=== PATIENT | female | born 1945 | race Caucasian/White ===

== ENCOUNTER 2017-11-18 07:35 | Day surgery (SDC) | payer MEDICARE, OTHER, SELFPAY ==
[2017-11-17 12:39] VITALS: BMI 31.1
[2017-11-18] VITALS (7 sets, daily range): BP systolic 150–174; BP diastolic 73–82; PULSE 61–73; RESP 18; TEMP 36.5–36.7; O2SAT 93–100
== END 2017-11-18 10:12 | disposition home or self-care (01) ==
LOC: OR 07:37
PROVIDERS: PCP Family Medicine; Visit Provider Ophthalmology
DX: H26.9 Unspecified cataract (principal)
CPT/HCPCS: 66984; V2632

== ENCOUNTER → 2017-12-09 12:59 | Outpatient (POV) | payer MEDICARE, OTHER, SELFPAY | PROVIDERS: PCP Family Medicine; Visit Provider Internal Medicine | DX: Z00.00 Encounter for general adult medical examination without abnormal findings (principal) ==

== ENCOUNTER 2017-12-16 07:51 | Day surgery (SDC) | payer MEDICARE, OTHER, SELFPAY ==
[2017-12-12 15:31] VITALS: BMI 31.4
[2017-12-16] VITALS (7 sets, daily range): BP systolic 149–176; BP diastolic 69–86; PULSE 60–73; RESP 17–20; TEMP 36.7–36.9; O2SAT 91–100
== END 2017-12-16 10:38 | disposition home or self-care (01) ==
LOC: OR 07:53
PROVIDERS: PCP Family Medicine; Visit Provider Ophthalmology
DX: H26.9 Unspecified cataract (principal)
CPT/HCPCS: 66984; V2632

== ENCOUNTER → 2018-06-30 14:25 | Outpatient (POV) | payer MEDICARE, OTHER, SELFPAY | PROVIDERS: PCP Family Medicine; Visit Provider Internal Medicine | DX: Z00.00 Encounter for general adult medical examination without abnormal findings (principal) ==

== ENCOUNTER → 2018-08-31 16:08 | Outpatient (CLI) | payer MEDICARE, OTHER, SELFPAY ==
--- NOTE | 2018-08-31 16:16 | MM_ITS ---
MM Dig screening mamm BI w/CAD ORDERING PHYSICIAN : Ari Benavidez MD PATIENT AGE: 73 years GENDER: Female COMPARISON: Bilateral digital screening mammogram lDeceer 2016, July 2016, 2014, June 2014 INDICATION: ITS.REASON: SCREENING No hormones. No new complaints.. Family History: 2 sisters with breast cancer. & One cousin. TECHNIQUE: Standard CC and MLO images were obtained. R2 CAD reviewed. Additional CC nipple profile view bilateral FINDINGS: Lower density breast with minimal residual fibroglandular elements both breasts. , Most evident retroareolar region extending towards upper-outer quadrant. No suspicious mass. No dominant mass. No suspicious calcifications. No significant new findings. Bilateral follow-up in one year adequate. . --------IMPRESSION: Stable bilateral mammogram. No significant new findings. Bilateral follow-up in one year BI-RADS Category: 1 Negative RECOMMENDED FOLLOW-UP: 1YR 1 YEAR FOLLOW-UP (A letter has been sent to the patient regarding results of the study.)
== END ==
PROVIDERS: PCP Family Medicine; Visit Provider Family Medicine
DX: Z12.31 Encounter for screening mammogram for malignant neoplasm of breast (principal)
CPT/HCPCS: 77067

== ENCOUNTER 2018-12-14 11:38 | Inpatient (IN) ==
--- NOTE | 2018-12-14 12:04 | Emergency Department Note ---
ED Disposition Clinical Impression: COPD exacerbation, Hypokalemia Disposition: Admitted as Observation Condition on Discharge: Fair Referrals: Ari Benavidez MD [Primary Care Provider] - - Critical Care Critical Care Time: No Attestation: On 12/14/18, the high probability of a clinically significant, sudden or life threatening deterioration of the following system(s) required my full and direct attention, intervention and personal management. The time I documented below is in addition to time spent performing reported procedures but includes the following listed in this critical care notation. Medical Decision Making - Skip Inquiry Pt receiving controlled substance: No Vital Signs: 12/14/18 11:53 12/14/18 12:01 12/14/18 12:33 Temperature 97.7 F Temperature Source Oral Pulse Rate [Left Radial] 93 H 86 Respiratory Rate 26 H Blood Pressure [Right Arm] 124/87 126/76 Blood Pressure Mean [Right Arm] 99 92 Blood Pressure Source [Right Arm] Automatic Cuff Automatic Cuff Blood Pressure Position [Right Arm] Sitting Sitting 02 Sat by Pulse Oximetry 88 L 96 94 L Oxygen Delivery Method Room Air Nasal Cannula Oxygen Flow Rate (LPM) 2 12/14/18 13:00 12/14/18 14:00 Temperature Temperature Source Pulse Rate [Left Radial] 68 73 Respiratory Rate 20 20 Blood Pressure [Right Arm] 131/64 121/83 Blood Pressure Mean [Right Arm] 86 95 Blood Pressure Source [Right Arm] Automatic Cuff Blood Pressure Position [Right Arm] Sitting 02 Sat by Pulse Oximetry 95 94 L Oxygen Delivery Method Room Air Room Air Oxygen Flow Rate (LPM) - Lab Data Lab Results 12/14/18 11:48: WBC 7.3, RBC 4.73, Hgb 13.2, Hct 41.2, MCV 87.0, MCH 28.0, MCHC 32.1, RDW 13.5, Plt Count 314, MPV 7.4, Neut % (Auto) 78.6, Lymph % (Auto) 13.5, [place] % (Auto) 5.8, Eos % (Auto) 1.4, Baso % (Auto) 0.7, Neut # (Auto) 5.7, Lymph # (Auto) 1.0, [place] # (Auto) 0.4, Eos # (Auto) 0.1, Baso # (Auto) 0.1 12/14/18 11:48: Sodium 142, Potassium 2.8 L*, Chloride 102, Carbon Dioxide 29, Anion Gap 13.8, BUN 12, Creatinine 1.44 H, Estimated Creat Clear 39, Estimated GFR 36 L, Est GFR ( Amer) 43 L, Glucose 130 H, Calcium 8.5, Total Bilirubin 0.4, Direct Bilirubin 0.1, Indirect Bilirubin 0.3, AST 53 H, ALT 40, Alkaline Phosphatase 82, Troponin I < 0.02, Total Protein 7.1, Albumin 3.2 L, Amylase 58, Lipase 65 L 12/14/18 12:19: Specimen Source Right brachial, O2 % 2.5l, ABG pH 7.44, ABG pCO2 39.7, ABG pO2 80.9, ABG HCO3 26.5 H, ABG Total CO2 27.7 H, ABG O2 Saturation 96, ABG Base Excess 2.4 H, Lionel Test Acceptable 12/14/18 12:23: Lactate 1.3 12/14/18 14:00: Urine Color Yellow, Urine Appearance Clear, Urine pH 6.0, Ur Specific [place] >= 1.030, Urine Protein 1+, Urine Glucose (UA) Negative, Urine Ketones Negative, Urine Blood Negative, Urine Nitrate Positive, Urine Bilirubin Negative, Urine Urobilinogen 0.2, Ur Leukocyte Esterase Negative, Urine WBC 5- 10, Ur Squamous Epith Cells 3-5, Urine Bacteria 4+ Result diagrams: 12/14/18 11:48 12/14/18 11:48 Orders (Tests/Meds): ED MEDICATIONS Generic Name Dose Route Start Last Admin Trade Name Freq PRN Reason Stop Dose Admin Sodium Chloride 10 ml 12/14/18 11:59 Saline Flush 10ml Syringe IV 01/13/19 11:58 NEEDED PRN Maintain IV Site Discontinued Medications Generic Name Dose Route Start Last Admin Trade Name Freq PRN Reason Stop Dose Admin Morphine Sulfate 2 mg 12/14/18 13:06 12/14/18 13:24 Morphine 4mg/Ml Syringe IV 12/14/18 13:07 2 mg ONCE ONE Administration Ondansetron HCl 4 mg 12/14/18 13:06 12/14/18 13:24 Zofran 4mg/2ml Vial IV 12/14/18 13:07 4 mg ONCE ONE Administration Ondansetron HCl 4 mg 12/14/18 13:38 12/14/18 14:03 Zofran 4mg/2ml Vial IV 12/14/18 13:39 4 mg ONCE ONE Administration Potassium Chloride 60 meq 12/14/18 12:21 12/14/18 12:30 Klor-Con 20meq Tablet PO 12/14/18 12:22 60 meq ONCE ONE Administration ORDERS Category Date Time Status Diarrhea 23 Panel, PCR Stat Lab 12/14/18 11:59 Ordered Blood Culture Stat Micro 12/14/18 12:23 Received Urine Culture Stat Micro 12/14/18 14:00 Received - Radiology Data #1 Image(s): Chest Image Reviewed: Yes I reviewed the patient's radiology image, Yes I have reviewed radiologist's interpretation Preliminary Findings: Normal/NAD - CT Data CT Scan: Abdomen, Pelvis Time Received: 14:[address] Reviewed: Yes: I have viewed the radiologist's interpretation Findings Narrative: IMPRESSION: 1. Fatty liver with distended gallbladder. 2. Hiatal hernia. High density material present within the distal esophagus and stomach and could be related to oral contrast or ingested bismuth containing product. 3. [id number] amount of stool within the colon with some air-fluid levels which could be seen with diarrhea disease. 4. Diverticulosis. No evidence of diverticulitis Dictated By: Lionel Acuña MD Signed By: <Electronically signed by Lionel Acuña MD in [place]> 12/14/18 [id number] - ECG Data Tracing #1 EKG interpreted by Harley Wheatley MD: Rhythm: sinus Rate: 88 [place]: Left Ectopy: none Conduction: normal ST Segment Changes: none T Wave Changes: none Q Waves: none No evidence of acute ischemia or injury LVH Baseline artifact and wander present, but I consider the EKG adequate for accurate interpretation. - Physician Consults Physician Consulted: Pramod Time: 14:43 Reason -: Admission Comment/Response: Agrees to admit the patient to the hospital. We discussed the patient's clinical information, including history, exam, laboratory and radiology results and ED course. Per hospital procedure, I will write temporary bridge inpatient orders on the patient. Specific orders requested by the admitting physician: D5 half-normal saline with 40 mEq of potassium per liter at 100 cc/h. Recheck chemistry profile in the morning. Continue nebulizer treatments and steroids. No antibiotics. - Reevaluation(s) Time: 14:32 Reevaluation #1: Improved, but states not back to baseline and feels like she needs to be admitted. General Adult HPI - General Chief complaint: Shortness of Breath/Dyspnea Stated complaint: SOA Time Seen by Provider: 12/14/18 12:03 Mode of Arrival: Wheelchair Limitations: No Limitations Description of Symptoms (Recalled from ER Triage Doc. by RN): to ed per pvt car with c/o SOB "always SOB" worse over last 2 days. +cough pt also c/o abd cramping and diarrhea x 2 months + nausea seen by PCP last friday given antibiotics and zofran. denies fever, chills, urinary symptoms. cpta none - History of Present Illness HPI narrative: 1 week history of productive cough, increasing shortness of breath. States she has had a fever. Has chronic thick drainage down the back of her throat. States also has chronic diarrhea. Chronic abdominal pain and chronic vomiting, generally at night after she takes her medicines. However, symptoms have worsened recently and she saw her primary care doctor last week and was started on Flagyl, Cipro, and Zofran. states she was supposed to have a gallb ladder tests, but states he could not get the office to schedule it. Has COPD. Former smoker. He uses oxygen at night. Has an inhaler, but not a nebulizer. Chronically short of breath, but worse now. - Related Data Home Medications Medication Instructions Recorded Confirmed Atorvastatin Calcium [Lipitor 40mg 40 mg PO HS 11/17/17 12/14/18 Tablet] Dicyclomine HCl 20 mg PO DAILY 11/17/17 12/14/18 Mirtazapine [Remeron] 30 mg PO HS 11/17/17 12/14/18 Montelukast Sodium [Montelukast 10 mg PO HS 11/17/17 12/14/18 10mg Tab] Omeprazole Magnesium [Prilosec Otc 20 mg PO DAILY 11/17/17 12/14/18 20mg Tab] Pilocarpine HCl [Salagen] 5 mg PO TID 11/17/17 12/14/18 Umeclidinium Brm/Vilanterol Tr 1 each IH DAILY 11/17/17 12/14/18 [Anoro Ellipta 62.5-25 Mcg INH] Venlafaxine HCl [Venlafaxine HCl 125 mg PO DAILY 11/17/17 12/14/18 ER] diazePAM [Valium] 5 mg PO BID 11/17/17 12/14/18 dilTIAZem HCl [Diltiazem ER] 180 mg PO DAILY 11/17/17 12/14/18 Bisoprolol Fumarate [Zebeta 5mg 5 mg PO DAILY 05/26/18 12/14/18 tablet] hydroCHLOROthiazide [HCTZ 12.5mg 12.5 mg PO DAILY 05/26/18 12/14/18 cap] metroNIDAZOLE [Flagyl 500mg 500 mg PO Q8H 12/14/18 12/14/18 Tablet] Previous Rx's Medication Instructions Recorded Dicyclomine HCl [Bentyl 10mg 10 mg PO Q8HP PRN #21 cap 05/26/18 capsule] Allergies Allergy/AdvReac Type Severity Reaction Status Date / Time butorphanol [From STADOL] Allergy Mild Verified 12/16/17 08:05 naproxen [NAPROXEN] Allergy Mild Verified 12/16/17 08:05 Penicillins [PENICILLINS] Allergy Mild Verified 12/16/17 08:05 [facility] History - Hepatitis A Screen Drug use history?: No High risk sexual behaviors?: No History of sexually transmitted infection?: No Currently employed?: No Childcare worker?: No Do you have indoor plumbing?: Yes Do you have electricity?: Yes Attestation statement:: This patient has been screened for Hepatitis A risk factors. Medical History: Reports:: Arrhythmia, Hyperlipidemia, Hypertension, Lung Disease (copd, USES OXYGEN NIGHTLY) Denies:: Cancer, Diabetes Mellitus Type 1, Diabetes Mellitus Type 2, Internal Pacemaker, MRSA, Seizures Other Surgeries: No: Pacemaker Amputation: No Fractures: No - Social History Smoking Status: Former smoker Alcohol Intake: never Occupational Status: other - Psychiatric History Expresses thoughts of harming self/others: None Suicide Plan Description: No Plan ROS Obtained: Yes All systems reviewed & no additional complaints - Constitutional Constitutional: Reports fever(s) - ENT Ears, Nose, Mouth, and Throat: Reports post nasal drip - Cardiovascular Cardiovascular: Denies chest pain - Respiratory Respiratory: Yes cough, Yes excessive phlegm production - Gastrointestinal Gastrointestingal: Reports: abdominal pain, diarrhea, vomiting Physical Exam - General General appearance: alert Comment: Tachypneic, frequent coughing - Head Head exam: atraumatic, normocephalic - Eye Eye exam: Present: normal appearance, PERRL, EOMI - ENT ENT exam: Present: mucous membranes moist - Neck Neck exam: Present: normal inspection, trachea midline - Chest Chest inspection: Present: normal inspection, symmetric chest wall rise - Respiratory Respiratory exam: Present: wheezes, other (Rhonchi) - Cardiovascular Cardiovascular exam: Present: regular rate, normal rhythm, normal heart sounds - Abdominal Exam Abdominal exam: Present: soft, tenderness. Absent: distention Abdominal tenderness: Present: diffuse - Extremities Exam Extremities exam: Present: normal inspection - Neurological Exam Neurological exam: Present: alert, oriented X3 - Psychiatric Psychiatric exam: Present: anxious - Skin Skin exam: Present: warm, dry
[2018-12-14 12:09] LABS: Basophils # 0.1 K/mm3 (0-0.2); Basophils % 0.7 % (0.1-2.0); Eosinophils # 0.1 K/mm3 (0.0-0.4); Eosinophils % 1.4 % (0.1-12.0); Hematocrit 41.2 % (37.0-47.0); Hemoglobin 13.2 g/dL (12.2-16.2); Lymphocytes % 13.5 % (10-50); Mean Corpuscular HGB Conc 32.1 g/dL (31.8-35.4); Mean Platelet Volume 7.4 fl (7.4-10.4); Monocytes # 0.4 K/mm3 (0.1-1.0); Monocytes % 5.8 % (1.7-9.3); Neutrophils # 5.7 K/mm3 (1.8-7.8); Neutrophils % 78.6 % (37.0-80.0); Platelet Count 314 K/mm3 (142-424); Red Blood Count 4.73 M/mm3 (4.20-5.40); Red Cell Distribution Width 13.5 % (11.5-17.5); White Blood Count 7.3 K/mm3 (4.8-10.8)
[2018-12-14 12:20] LABS: Alanine Aminotransferase 40 U/L (12-78); Albumin Level 3.2 gm/dL (3.4-5.0); Alkaline Phosphatase 82 U/L (46-116); Amylase 58 U/L (25-115); Anion Gap 13.8 mEq/L (5-15); Aspartate Amino Transferase 53 U/L (15-37); Bilirubin,Direct 0.1 mg/dL (0.0-0.2); Bilirubin,Indirect 0.3 mg/dL (0.0-0.9); Bilirubin,Total 0.4 mg/dL (0.2-1.0); Blood Urea Nitrogen 12 mg/dL (7-18); Calcium 8.5 mg/dL (8.5-10.1); Carbon Dioxide 29 mmol/L (21.0-32.0); Chloride 102 mmol/L (98-107); Glucose 130 mg/dL (74-106); Lipase 65 u/L (73-393); Sodium 142 mmol/L (136-145); Total Protein,Serum 7.1 gm/dL (6.4-8.2)
[2018-12-14 12:21] LABS: Potassium 2.8 mmoL/L (3.5-5.1)
[2018-12-14 13:08] LABS: ABG Base Excess 2.4 mmol/L (-2.4-2.3); ABG HCO3 26.5 mmhg (22.0-26.0); ABG Oxygen Saturation 96 % (90-100); ABG PCO2 39.7 mmhg (35.0-45.0); ABG PH 7.44 mmol/L (7.35-7.45); ABG PO2 80.9 mmhg (80-100); ABG TCO2 27.7 mmhg (23-27)
[2018-12-14 13:09] LABS: Allen's Test Acceptable; Oxygen 2.5L %
[2018-12-14 14:05] LABS: Microscopic, Urine URINE MICROSCOPIC (MICROSCOPIC)
[2018-12-14 14:12] LABS: Appearance,Urine CLEAR (Clear); Blood, Urine Negative (Negative); Color,Urine YELLOW (Yellow); Glucose,Urine (UA) Negative (Negative); Ketones,Urine Negative (Negative); Leukocyte Esterase,Urine Negative (Negative); Protein,Urine 1+ (Negative); Specific Gravity, Urine >= 1.030 (1.005-1.030); Urobilinogen,Urine 0.2 EU/dl (0.2)
[2018-12-14 14:19] LABS: Bacteria,Urine 4+ /lpf; Bilirubin,Urine Negative (Negative)
--- NOTE | 2018-12-14 16:05 | History & Physical Report ---
*Admission Date: 12/14/18 *Chief complaint: mild COPD exacerbation and hypokalemia *History of present illness: 73 year old female presents to the Emergency Department via private vehicle with increasing shortness of breath, cough, and N/V/D. Respiratory symptoms are chronic in nature but have progressively gotten worse over the last two weeks. She reportedly wears 2L NC at bedtime, takes anoro inhaler daily, and has nebulizer at home but not recently used. PMH significant for asthma, COPD, PNA and tobacco use, smoked 2 PPD X15-20 years, quit 20 years ago. Nausea and diarrhea has been going on for the past two months, vomiting started in the ER today, she was seen in the office one week ago and started on flagyl, cipro, ondansetron for these issues and is awaiting further testing on gallbladder. Negative for blood in emesis or stool. Does not follow any particular diet for previous diagnosis of diverticulosis. PMH also significant for IBS. H History Medical History: Reports:: Arrhythmia, Chronic Obstructive Pulmonary Disease (COPD), Hiatal Hernia, Home Oxygen, Hyperlipidemia, Hypertension, Lung Disease (copd, USES OXYGEN NIGHTLY) Denies:: Cancer, Diabetes Mellitus Type 1, Diabetes Mellitus Type 2, Internal Pacemaker, MRSA, Seizures *Have you ever received a pneumonia vaccine?: No (2016) *Have you received a flu vaccine this season?: No (2016) Comment:: PVC/PACs Other Surgeries: Yes: Appendectomy, Hysterectomy-Partial. No: Pacemaker Amputation: No Fractures: No Comment: cardiac catheterization without stenting, hemorrhoidectomy, fatty tumor removed from left groin, and benign skin lesion removed from face - *Social History Smoking Status: Former smoker # Packs/Day (cigarettes): 2 #Yrs smoked (if former smoker): 20 Smoking End Date: 20 years ago Alcohol Intake: never *Occupational Status:: other *Travel in the last 8 weeks: None - Psychiatric History Expresses thoughts of harming self/others: None Suicide Plan Description: No Plan Family Hx:: No significant family history Review of Systems - Constitutional Reports fever(s), Reports lack of energy, Reports malaise Comments: subjective fevers - *Cardiovascular Denies chest pain, Denies irregular heart rhythm, Denies leg swelling, Denies shortness of breath when lying down, Denies fast heart rate - *Respiratory Reports chest congestion, Reports cough, Reports shortness of breath, Denies coughing up blood - *Gastrointestinal Reports cramping, Reports loose stools, Reports nausea, Reports vomiting, Denies abdominal pain - *Musculoskeletal Denies muscle cramps Meds Home Medications Medication Instructions Recorded Confirmed Type Atorvastatin Calcium [Lipitor 40mg 40 mg PO HS 11/17/17 12/14/18 History Tablet] Mirtazapine [Remeron] 40 mg PO HS 11/17/17 12/14/18 History Montelukast Sodium [Montelukast 10 mg PO HS 11/17/17 12/14/18 History 10mg Tab] Pilocarpine HCl [Salagen] 5 mg PO TID 11/17/17 12/14/18 History RX: Dicyclomine HCl 20 mg PO TID 11/17/17 12/14/18 History Umeclidinium Brm/Vilanterol Tr 1 each IH DAILY 11/17/17 12/14/18 History [Anoro Ellipta 62.5-25 Mcg INH] diazePAM [Valium] 5 mg PO BID 11/17/17 12/14/18 History dilTIAZem HCl [Diltiazem ER] 180 mg PO DAILY 11/17/17 12/14/18 History Dicyclomine HCl [Bentyl 10mg 10 mg PO Q8HP PRN #21 cap 05/26/18 12/14/18 Rx capsule] RX: Bisoprolol Fumarate [Zebeta 5 mg PO DAILY 05/26/18 12/14/18 History 5mg tablet] hydroCHLOROthiazide [HCTZ 12.5mg 12.5 mg PO DAILY 05/26/18 12/14/18 History cap] Ondansetron HCl [Ondansetron 4mg 4 mg PO Q8HP PRN 12/14/18 12/14/18 History Tablet] RX: Ciprofloxacin HCl [Cipro 500mg 500 mg PO Q12H 12/14/18 12/14/18 History Tab] RX: Omeprazole [Omeprazole 40mg 40 mg PO DAILY 12/14/18 12/14/18 History Capsule] RX: Venlafaxine HCl [Venlafaxine 225 mg PO DAILY 12/14/18 12/14/18 History HCl ER] metroNIDAZOLE [Flagyl 500mg 500 mg PO Q8H 12/14/18 12/14/18 History Tablet] Allergies Allergy/AdvReac Type Severity Reaction Status Date / Time butorphanol [From STADOL] Allergy Mild Verified 12/16/17 08:05 naproxen [NAPROXEN] Allergy Mild Verified 12/16/17 08:05 Penicillins [PENICILLINS] Allergy Mild Verified 12/16/17 08:05 Exam Vital signs and Labs for Last 24 Hours: Temp Pulse Resp BP Pulse Ox 97.7 F 77 20 121/83 94 L 12/14/18 11:53 12/14/18 14:55 12/14/18 14:00 12/14/18 14:00 12/14/18 14:00 Laboratory Results - last 24 hr 12/14/18 11:48: WBC 7.3, RBC 4.73, Hgb 13.2, Hct 41.2, MCV 87.0, MCH 28.0, MCHC 32.1, RDW 13.5, Plt Count 314, MPV 7.4, Neut % (Auto) 78.6, Lymph % (Auto) 13.5, [place] % (Auto) 5.8, Eos % (Auto) 1.4, Baso % (Auto) 0.7, Neut # (Auto) 5.7, Lymph # (Auto) 1.0, [place] # (Auto) 0.4, Eos # (Auto) 0.1, Baso # (Auto) 0.1 12/14/18 11:48: Sodium 142, Potassium 2.8 L*, Chloride 102, Carbon Dioxide 29, Anion Gap 13.8, BUN 12, Creatinine 1.44 H, Estimated Creat Clear 39, Estimated GFR 36 L, Est GFR ( Amer) 43 L, Glucose 130 H, Calcium 8.5, Total Bilirubin 0.4, Direct Bilirubin 0.1, Indirect Bilirubin 0.3, AST 53 H, ALT 40, Alkaline Phosphatase 82, Troponin I < 0.02, Total Protein 7.1, Albumin 3.2 L, Amylase 58, Lipase 65 L 12/14/18 12:19: Specimen Source Right brachial, O2 % 2.5l, ABG pH 7.44, ABG pCO2 39.7, ABG pO2 80.9, ABG HCO3 26.5 H, ABG Total CO2 27.7 H, ABG O2 Saturation 96, ABG Base Excess 2.4 H, Lionel Test Acceptable 12/14/18 12:23: Lactate 1.3 12/14/18 14:00: Urine Color Yellow, Urine Appearance Clear, Urine pH 6.0, Ur Specific [place] >= 1.030, Urine Protein 1+, Urine Glucose (UA) Negative, Urine Ketones Negative, Urine Blood Negative, Urine Nitrate Positive, Urine Bilirubin Negative, Urine Urobilinogen 0.2, Ur Leukocyte Esterase Negative, Urine WBC 5- 10, Ur Squamous Epith Cells 3-5, Urine Bacteria 4+ I & O for Last 24 hours: Intake & Output 12/11/18 12/12/18 12/13/18 12/14/18 23:59 23:59 23:59 23:59 Weight 153 lb - Constitutional no acute distress, average body habitus, cooperative - *Routine HEENT Exam Head: Present: normocephalic, atraumatic ENT: Present: mucous membranes dry - *Routine Respiratory Exam Present: accessory muscle use, CTA bilaterally - *Routine Cardiovascular Exam Present: RRR - *Routine Abdominal Exam Present: soft, normoactive bowel sounds, tenderness. Absent: distended Comments: lower lower abd tenderness with palpation - *Routine Extremities Exam Present: normal capillary refill. Absent: cyanosis, edema - *Routine Skin Exam Present: intact. Absent: pallor - *Routine Neurological Exam Present: alert, oriented X3 - Routine Psychiatric Exam Present: normal affect Assessment and Plan (1) COPD exacerbation Current visit: Yes Status: Acute Category: Medical Code(s): J44.1 - Chronic obstructive pulmonary disease with (acute) exacerbation (2) Hypokalemia Current visit: Yes Status: Acute Category: Medical Code(s): E87.6 - Hypokalemia (3) Diverticulosis Current visit: No Status: Acute Category: Medical Code(s): K57.90 - Diverticulosis of intestine, part unspecified, without perforation or abscess without bleeding - Assessment and plan all Dx Assessment and Plan for all problems:: Patient to be admitted overnight to second floor medical surgical unit. Will administer IVFs containing potassium for correction hypokalemia and redraw basic metabolic panel tomorrow morning. May use breathing treatments as needed and will schedule steroids. Zofran as needed for N/V as well.
--- NOTE | 2018-12-14 16:15 | Pharmacy Consult Notes ---
[facility] Pharmacy VTE Monitoring - Patient Demographics Admission date: 12/14/18 Report Date: 12/14/18 Time: 16:15 Allergies/Adverse Reactions: Patient Allergies butorphanol [From STADOL] Allergy (Mild, Verified 12/16/17 08:05) naproxen [NAPROXEN] Allergy (Mild, Verified 12/16/17 08:05) Penicillins [PENICILLINS] Allergy (Mild, Verified 12/16/17 08:05) Height: 1.57 m Weight: 69.4 kg Patient Problems: Current Active Problems COPD exacerbation (Acute) Hypokalemia (Acute) - VTE Risk Labs: VTE Related Lab Results Hgb 13.2 g/dL (12.2-16.2) 12/14/18 11:48 Hct 41.2 % (37.0-47.0) 12/14/18 11:48 Plt Count 314 K/mm3 (142-424) 12/14/18 11:48 BUN 12 mg/dL (7-18) 12/14/18 11:48 Creatinine 1.44 mg/dL (0.55-1.02) H 12/14/18 11:48 Estimated Creat Clear 39 mL/min (50-200) 12/14/18 11:48 - Prophylaxis VTE Prophylaxis Ordered?: Yes Types of VTE Prophylaxis: TEDS Knee High Location of Applied Device: Bilateral Lower Extremeties
--- NOTE | 2018-12-15 06:58 | Progress Note ---
Internal Medicine - PN: Subj *Date: 12/15/18 *Time: 06:55 Interval history: Patient felt better this morning but has since begun coughing and wheezing. This is after receiving a DuoNeb. Her cough is productive of small amounts of sputum. Her O2 sats did decrease to a low of 84%. Patient is currently wearing a nasal cannula to provide supplemental oxygen. There is no complaint of abdominal pain this morning Exam Vital signs and Labs for Last 24 Hours: Temp Pulse Resp BP Pulse Ox 97.8 F 81 18 155/73 H 84 L 12/15/18 04:00 12/15/18 05:52 12/15/18 04:00 12/15/18 04:00 12/15/18 05:52 Laboratory Results - last 24 hr 12/14/18 11:48: WBC 7.3, RBC 4.73, Hgb 13.2, Hct 41.2, MCV 87.0, MCH 28.0, MCHC 32.1, RDW 13.5, Plt Count 314, MPV 7.4, Neut % (Auto) 78.6, Lymph % (Auto) 13.5, [place] % (Auto) 5.8, Eos % (Auto) 1.4, Baso % (Auto) 0.7, Neut # (Auto) 5.7, Lymph # (Auto) 1.0, [place] # (Auto) 0.4, Eos # (Auto) 0.1, Baso # (Auto) 0.1 12/14/18 11:48: Sodium 142, Potassium 2.8 L*, Chloride 102, Carbon Dioxide 29, Anion Gap 13.8, BUN 12, Creatinine 1.44 H, Estimated Creat Clear 39, Estimated GFR 36 L, Est GFR ( Amer) 43 L, Glucose 130 H, Calcium 8.5, Total Bilirubin 0.4, Direct Bilirubin 0.1, Indirect Bilirubin 0.3, AST 53 H, ALT 40, Alkaline Phosphatase 82, Troponin I < 0.02, Total Protein 7.1, Albumin 3.2 L, Amylase 58, Lipase 65 L 12/14/18 12:19: Specimen Source Right brachial, O2 % 2.5l, ABG pH 7.44, ABG pCO2 39.7, ABG pO2 80.9, ABG HCO3 26.5 H, ABG Total CO2 27.7 H, ABG O2 Saturation 96, ABG Base Excess 2.4 H, Lionel Test Acceptable 12/14/18 12:23: Lactate 1.3 12/14/18 14:00: Urine Color Yellow, Urine Appearance Clear, Urine pH 6.0, Ur Specific [place] >= 1.030, Urine Protein 1+, Urine Glucose (UA) Negative, Urine Ketones Negative, Urine Blood Negative, Urine Nitrate Positive, Urine Bilirubin Negative, Urine Urobilinogen 0.2, Ur Leukocyte Esterase Negative, Urine WBC 5- 10, Ur Squamous Epith Cells 3-5, Urine Bacteria 4+ I & O for Last 24 hours: Intake & Output 12/12/18 12/13/18 12/14/18 12/15/18 11:59 11:59 11:59 11:59 Intake Total 1420 / 1420 Balance 1420 / 1420 Weight 153 lb 153 lb Narrative: Patient is awake and alert and does not appear to be in any distress. Her speech is pressured. Lungs reveal bibasilar rhonchi with diffuse expiratory wheezes heard both anteriorly and posteriorly. Heart has a regular rate and rhythm Assessment and Plan (1) COPD exacerbation Current visit: Yes Status: Acute Category: Medical Code(s): J44.1 - Chronic obstructive pulmonary disease with (acute) exacerbation (2) Hypokalemia Current visit: Yes Status: Acute Category: Medical Code(s): E87.6 - Hypokalemia (3) Diverticulosis Current visit: No Status: Acute Category: Medical Code(s): K57.90 - Diverticulosis of intestine, part unspecified, without perforation or abscess without bleeding (4) Irritable bowel syndrome (IBS) Current visit: Yes Status: Acute Category: Medical Code(s): K58.9 - Irritable bowel syndrome without diarrhea - Assessment and plan all Dx Assessment and Plan for all problems:: 1. Continue steroids and duo nebs 2. Await potassium level this morning 3. Decrease IV fluids. 4. Advance diet
[2018-12-15 07:09] LABS: Calcium 8.5 mg/dL (8.5-10.1)
--- NOTE | 2018-12-16 07:16 | Progress Note ---
Internal Medicine - PN: Subj *Date: 12/16/18 *Time: 07:14 Interval history: Patient had a rough night. She apparently had an anxiety attack around 9 PM that required staff to sit with her and help her calm down. Her concern was she was not improving. Later on in the night she vomited approximately 300 mL's of what was described as bilious emesis. This morning she continues to have cough and complains of some mild shortness of breath. She denies nausea at this time. Exam Vital signs and Labs for Last 24 Hours: Temp Pulse Resp BP Pulse Ox 98.1 F 89 18 145/85 H 93 L 12/16/18 04:00 12/16/18 06:01 12/16/18 04:00 12/16/18 04:00 12/16/18 06:01 Laboratory Results - last 24 hr 12/15/18 06:14: Sodium 141, Potassium 4.0 D, Chloride 105, Carbon Dioxide 25, Anion Gap 15.0, BUN 16 D, Creatinine 1.41 H, Estimated Creat Clear 40, Estimated GFR 37 L, Est GFR ( Amer) 44 L, Glucose 204 H D, Calcium 8.5 I & O for Last 24 hours: Intake & Output 12/13/18 12/14/18 12/15/18 12/16/18 11:59 11:59 11:59 11:59 Intake Total 1660 / 1660 600 / 600 Balance 1660 / 1660 600 / 600 Weight 153 lb 153 lb Microbiology Reports for the Last 24 Hours: Microbiology 12/16/18 01:06 Sputum - Expectorated Sputum Gram Stain - Final 12/14/18 14:00 Urine,Catheterized Urine Culture - Preliminary NO GROWTH AFTER 24 HOURS Narrative: She is in no distress but appears anxious this morning. Lungs have improved aeration compared to yesterday but are still quite noisy with mixed wheezes and rhonchi anteriorly and posteriorly. Heart has a regular rate and rhythm. Abdomen is soft, obese and nontender Assessment and Plan (1) COPD exacerbation Current visit: Yes Status: Acute Category: Medical Code(s): J44.1 - Chronic obstructive pulmonary disease with (acute) exacerbation (2) Hypokalemia Current visit: Yes Status: Acute Category: Medical Code(s): E87.6 - Hypokalemia (3) Diverticulosis Current visit: No Status: Acute Category: Medical Code(s): K57.90 - Diverticulosis of intestine, part unspecified, without perforation or abscess without bleeding (4) Irritable bowel syndrome (IBS) Current visit: Yes Status: Acute Category: Medical Code(s): K58.9 - Irritable bowel syndrome without diarrhea - Assessment and plan all Dx Assessment and Plan for all problems:: No change in plan of care. Encourage patient to ambulate today
--- NOTE | 2018-12-17 07:15 | Progress Note ---
Internal Medicine - PN: Subj *Date: 12/17/18 *Time: 07:13 Interval history: Patient does not feel well this morning. When I entered the room nursing staff is assisting her. She continues to have cough and wheezing. Cough is nonproductive. Patient has a long history of anxiety but does not believe anxiety is affecting her this morning. She denies abdominal pain. Ultrasound of the gallbladder yesterday revealed an enlarged gallbladder but no stones Exam Vital signs and Labs for Last 24 Hours: Temp Pulse Resp BP Pulse Ox 97.6 F 82 19 144/76 H 94 L 12/17/18 04:00 12/17/18 05:15 12/17/18 04:00 12/17/18 04:00 12/17/18 05:15 I & O for Last 24 hours: Intake & Output 12/14/18 12/15/18 12/16/18 12/17/18 11:59 11:59 11:59 11:59 Intake Total 1660 / 1660 600 / 600 Balance 1660 / 1660 600 / 600 Weight 153 lb 153 lb 153 lb Microbiology Reports for the Last 24 Hours: Microbiology 12/14/18 14:00 Urine,Catheterized Urine Culture - Final NO GROWTH AFTER 48 HOURS 12/14/18 12:23 Blood Blood Culture - Preliminary NO GROWTH AFTER 48 HOURS 12/14/18 12:23 Blood Blood Culture - Preliminary NO GROWTH AFTER 48 HOURS 12/16/18 01:06 Sputum - Expectorated Sputum Gram Stain - Final Narrative: Patient appears mildly anxious. Breath exam reveals fair aeration with lots of expiratory wheezing. Heart has a regular rate and rhythm. Abdomen is soft. Assessment and Plan (1) COPD exacerbation Current visit: Yes Status: Acute Category: Medical Code(s): J44.1 - Chronic obstructive pulmonary disease with (acute) exacerbation (2) Hypokalemia Current visit: Yes Status: Acute Category: Medical Code(s): E87.6 - Hypokalemia (3) Diverticulosis Current visit: No Status: Acute Category: Medical Code(s): K57.90 - Diverticulosis of intestine, part unspecified, without perforation or abscess without bleeding (4) Irritable bowel syndrome (IBS) Current visit: Yes Status: Acute Category: Medical Code(s): K58.9 - Irritable bowel syndrome without diarrhea - Assessment and plan all Dx Assessment and Plan for all problems:: Increase Solu-Medrol to every 6 hours. Add IV azithromycin this morning. Reassess this afternoon
--- NOTE | 2018-12-18 08:12 | Progress Note ---
Internal Medicine - PN: Subj *Date: 12/18/18 *Time: 08:09 Interval history: Patient does not feel like she is getting better. During the interview she begins crying not because of her own health but because of external stressors that are outside of her control such as her granddaughter moving away to [place] for a job. She is worried that the rainy weather may give her pneumonia if she is discharged from the hospital. She continues to cough although it remains nonproductive. Sputum and blood cultures have returned negative. Exam Vital signs and Labs for Last 24 Hours: Temp Pulse Resp BP Pulse Ox 98.2 F 78 18 147/87 H 91 L 12/18/18 04:00 12/18/18 05:52 12/18/18 04:00 12/18/18 04:00 12/18/18 05:52 I & O for Last 24 hours: Intake & Output 12/15/18 12/16/18 12/17/18 12/18/18 11:59 11:59 11:59 11:59 Intake Total 1660 / 1660 600 / 600 120 / 120 630 / 630 Output Total 751 / 751 Balance 1660 / 1660 600 / 600 120 / 120 -121 / -121 Weight 153 lb 153 lb Microbiology Reports for the Last 24 Hours: Microbiology 12/16/18 01:06 Sputum - Expectorated Sputum Gram Stain - Final 12/16/18 01:06 Sputum - Expectorated Sputum Sputum Culture - Final Normal Respiratory Deana Narrative: Patient appears more comfortable. At least initially, then she became very anxious and tearful. Lung exam this morning has significant improvement in wheezing and aeration. Wheezes are still present but not as audible as prior exams. When patient did get tearful her wheezing did seem to worsen. Assessment and Plan (1) COPD exacerbation Current visit: Yes Status: Acute Category: Medical Code(s): J44.1 - Chronic obstructive pulmonary disease with (acute) exacerbation (2) Hypokalemia Current visit: Yes Status: Acute Category: Medical Code(s): E87.6 - Hypokalemia (3) Diverticulosis Current visit: No Status: Acute Category: Medical Code(s): K57.90 - Diverticulosis of intestine, part unspecified, without perforation or abscess without bleeding (4) Irritable bowel syndrome (IBS) Current visit: Yes Status: Acute Category: Medical Code(s): K58.9 - Irritable bowel syndrome without diarrhea - Assessment and plan all Dx Assessment and Plan for all problems:: I reiterated to the patient that she is improving. I am going to increase her breathing treatments this morning to every 4 hours instead of 4 times daily. Continue Solu-Medrol every 6 hours. I had a discussion with the patient about continuing her treatment at home as I think she may be less anxious at home than she is here. Patient somewhat agrees with this idea. We will plan for discharge later this afternoon upon reassessment
--- NOTE | 2018-12-18 15:41 | Discharge Summary ---
General - General Admission date:: 12/15/18 Discharge date: 12/18/18 HPI HPI: 73 year old female presents to the Emergency Department via private vehicle with increasing shortness of breath, cough, and N/V/D. Respiratory symptoms are chronic in nature but have progressively gotten worse over the last two weeks. She reportedly wears 2L NC at bedtime, takes anoro inhaler daily, and has nebulizer at home but not recently used. PMH significant for asthma, COPD, PNA and tobacco use, smoked 2 PPD X15-20 years, quit 20 years ago. Nausea and diarrhea has been going on for the past two months, vomiting started in the ER today, she was seen in the office one week ago and started on flagyl, cipro, ondansetron for these issues and is awaiting further testing on gallbladder. Negative for blood in emesis or stool. Does not follow any particular diet for previous diagnosis of diverticulosis. PMH also significant for IBS. Hospital Course Hospital Course: Patient was admitted for evaluation and treatment of increased shortness of breath and gastric issues. She was treated with IV mag, solumedrol, antibiotics and neb treatments. She has been hesitant and tearful to go home at times but feels able tonight with the assistance of . I have reassured her that Dr Benavidez is in the office tomorrow and I am there friday if she needs anything. Objective Vital signs: Temp Pulse Resp BP Pulse Ox 97.4 F L 79 22 152/88 H 90 L 12/18/18 08:00 12/18/18 13:59 12/18/18 09:49 12/18/18 08:00 12/18/18 13:59 no acute distress, obese - *Routine HEENT Exam Head: Present: normocephalic, atraumatic ENT: Present: mucous membranes moist - *Routine Respiratory Exam Absent: accessory muscle use Comments: wheezes predominantly in right lobes, left are clear today, much improved from previous exam yesterday - *Routine Cardiovascular Exam Present: RRR - *Routine Abdominal Exam Present: soft, normoactive bowel sounds, tenderness - *Routine Extremities Exam Absent: cyanosis, edema - *Routine Skin Exam Present: intact, dry, pallor - *Routine Neurological Exam Present: alert, oriented X3 tearful, anxious - Routine Psychiatric Exam Present: normal affect Results Labs on day of discharge: Preliminary micro results at discharge 12/14/18 12:23 Blood Culture - Preliminary Blood NO GROWTH AFTER 48 HOURS 12/14/18 12:23 Blood Culture - Preliminary Blood NO GROWTH AFTER 48 HOURS DS: Diagnosis - Discharge Diagnosis (1) COPD exacerbation Status: Acute (2) Hypokalemia Status: Acute (3) Diverticulosis Status: Acute (4) Irritable bowel syndrome (IBS) Status: Acute Discharge Plan - Patient Discharge Instructions ACTIVITY: Continue current activity DIET: continue same diet Patient Instructions: DI for Chronic Obstructive Pulmonary Disease, Hypokalemia - Follow up Plan Follow up with: Ari Benavidez MD [Primary Care Provider] - 12/24/18 Disposition: Home, Self-Skilled Nursing Medications: Home Medications Medication Instructions Recorded Confirmed Type Atorvastatin Calcium [Lipitor 40mg 40 mg PO HS 11/17/17 12/14/18 History Tablet] Dicyclomine HCl 20 mg PO TID 11/17/17 12/14/18 History Mirtazapine [Remeron] 45 mg PO HS 11/17/17 12/15/18 History Montelukast Sodium [Montelukast 10 mg PO HS 11/17/17 12/14/18 History 10mg Tab] Pilocarpine HCl [Salagen] 5 mg PO TID 11/17/17 12/14/18 History Umeclidinium Brm/Vilanterol Tr 1 puff IH DAILY 11/17/17 12/15/18 History [Anoro Ellipta 62.5-25 Mcg INH] diazePAM [Valium] 5 mg PO BID 11/17/17 12/14/18 History dilTIAZem HCl [Diltiazem ER] 180 mg PO DAILY 11/17/17 12/14/18 History Bisoprolol Fumarate [Zebeta 5mg 5 mg PO DAILY 05/26/18 12/14/18 History tablet] hydroCHLOROthiazide [HCTZ 12.5mg 12.5 mg PO DAILY 05/26/18 12/14/18 History cap] Ciprofloxacin HCl [Cipro 500mg 500 mg PO Q12H 12/14/18 12/14/18 History Tab] Omeprazole [Omeprazole 40mg 40 mg PO DAILY 12/14/18 12/14/18 History Capsule] Ondansetron HCl [Ondansetron 4mg 4 mg PO Q8HP PRN 12/14/18 12/14/18 History Tablet] Venlafaxine HCl [Venlafaxine HCl 225 mg PO DAILY 12/14/18 12/14/18 History ER] metroNIDAZOLE [Flagyl 500mg 500 mg PO Q8H 12/14/18 12/14/18 History Tablet] Azithromycin [Zithromax 250mg 250 mg PO DAILY #5 tab 12/18/18 Rx tab] predniSONE [Deltasone 20mg 2 tab PO DAILY 7 Days #14 tab 12/18/18 Rx tablet] Prescriptions/Medication Reconciliation: New predniSONE [Deltasone 20mg tablet] 2 tab PO DAILY 7 Days #14 tab Azithromycin [Zithromax 250mg tab] 250 mg PO DAILY #5 tab Continue Atorvastatin Calcium [Lipitor 40mg Tablet] 40 mg PO HS diazePAM [Valium] 5 mg PO BID Dicyclomine HCl 20 mg PO TID Umeclidinium Brm/Vilanterol Tr [Anoro Ellipta 62.5-25 Mcg INH] 1 puff IH DAILY Montelukast Sodium [Montelukast 10mg Tab] 10 mg PO HS dilTIAZem HCl [Diltiazem ER] 180 mg PO DAILY Pilocarpine HCl [Salagen] 5 mg PO TID Omeprazole [Omeprazole 40mg Capsule] 40 mg PO DAILY Venlafaxine HCl [Venlafaxine HCl ER] 225 mg PO DAILY Mirtazapine [Remeron] 45 mg PO HS hydroCHLOROthiazide [HCTZ 12.5mg cap] 12.5 mg PO DAILY Bisoprolol Fumarate [Zebeta 5mg tablet] 5 mg PO DAILY metroNIDAZOLE [Flagyl 500mg Tablet] 500 mg PO Q8H Ondansetron HCl [Ondansetron 4mg Tablet] 4 mg PO Q8HP PRN PRN Reason: Nausea Ciprofloxacin HCl [Cipro 500mg Tab] 500 mg PO Q12H
== END 2018-12-18 16:15 | disposition home or self-care (01) | DRG 192 ==
LOC: 2ND 11:38 → ER 11:38 → 2ND 16:19
PROVIDERS: ADMIT Family Medicine; ATTEND Family Medicine
CPT/HCPCS: 36415; 71010; 71045; 74176; 76705; 80048; 80076; 81001; 82150; 82803; 83605; 83690; 84484; 85025; 87040; 87070; 87086; 87205; 93005; 94640; 94761; 96374; 96375; 96376; 99285; G0378; J0456; J2405

== ENCOUNTER → 2019-03-15 11:07 | Outpatient (CLI) | payer MEDICARE, BC, SELFPAY | PROVIDERS: PCP Family Medicine; Visit Provider Internal Medicine | DX: J44.9 Chronic obstructive pulmonary disease, unspecified (principal); R06.02 Shortness of breath | CPT/HCPCS: 94060; 94640 ==

== ENCOUNTER → 2019-07-20 10:54 | Outpatient (POV) | payer MEDICARE, BC, SELFPAY | PROVIDERS: Visit Provider Internal Medicine | DX: Z00.00 Encounter for general adult medical examination without abnormal findings (principal) ==

== ENCOUNTER → 2019-09-10 15:34 | Outpatient (CLI) | payer MEDICARE, BC, SELFPAY ==
--- NOTE | 2019-09-10 15:42 | MM_ITS ---
PROCEDURE: MM DIG SCREENING MAMM BI W/CAD Patient Age:74Y CLINICAL INDICATION: SCREENING. No hormones no new complaints. Family history: 2 sisters and 1 cousin with breast cancer COMPARISON: [facility] DIG MAMM-SCREEN LIZ from 08/01/2015 [facility] DIG MAMM-SCREEN LIZ from 08/05/2016 DMDXUAVL DIG MAMM-DX UNI ADD VIEWS-LT from 08/16/2016 [facility] DIG MAMM-SCREEN LIZ W/CAD from 08/22/2017 [facility] MM Dig screening mamm BI w/CAD from 08/31/2018 TECHNIQUE: Standard CC and MLO images were obtained. R2 CAD reviewed. Additional CC and MLO nipple profile views bilaterally FINDINGS: Moderate breast density with no new dominant or suspicious mass. Slight heterogeneous pattern similar to previous studies no suspicious calcifications either breast but overall stable architecture. nipple profile views are helpful bilaterally in supporting. CAD highlights no significant new findings either Right breast. No new findings left breast. Stable appearance but such a IMPRESSION: Stable bilateral mammogram. No significant new areas of concern Bilateral follow-up 1 year recommended,-and should be encouraged particularly in view of the positive family history BI-RAD Category: 1 Negative FOLLOW-UP: 1YR 1 Year Follow-up (A letter has been sent to the patient regarding results of the study.) Dictated by: Refugio Pruitt MD 09/12/2019 09:50 Electronically signed by Refugio Pruitt MD in [place] 09/12/2019 09:50
== END ==
PROVIDERS: PCP Family Medicine; Visit Provider Family Medicine
DX: Z12.31 Encounter for screening mammogram for malignant neoplasm of breast (principal)
CPT/HCPCS: 77067

== ENCOUNTER → 2020-06-14 10:16 | Outpatient (CLI) | payer MEDICARE, BC, SELFPAY ==
[2020-06-14 11:52] LABS: Coronavirus 19 IgG Antibody Negative (Negative); Coronavirus 19 IgM Antibody Negative (Negative)
== END ==
PROVIDERS: Visit Provider Internal Medicine Gastroenterology
DX: Z01.89 Encounter for other specified special examinations (principal); R10.9 Unspecified abdominal pain; R19.7 Diarrhea, unspecified; Z12.11 Encounter for screening for malignant neoplasm of colon
CPT/HCPCS: 36415; 86328

== ENCOUNTER 2020-06-16 10:30 | Day surgery (SDC) | payer MEDICARE, BC, SELFPAY ==
[2020-06-16] VITALS (7 sets, daily range): BP systolic 132–148; BP diastolic 64–78; PULSE 62–91; RESP 18–20; TEMP 36.2–36.3; O2SAT 91–98; BMI 31.1
--- NOTE | 2020-06-16 11:20 | HMH.ANESCL ---
[facility] Anesthesia Checklist - Patient Identification Patient Identification: Arm Band - Structural Data Admitted From: Home Planned Operative Procedure/s: colonoscopy Consent for Planned Operative Procedure(s) Verified: Yes Verified Documents: Surgical Consent, History and Physical - NPO Status Verified Time NPO: 00:00 - Additional verifications Anesthesia Reactions: Yes (nausea/vomiting) - Airway Assessment C-Spine Mobility Assessed: Yes (mp2) TMJ Mobility Assessed: Yes Dentition: Dentures-good fit - Neurological Assessment Level of Consciousness: Awake, Alert - Anesthesia Plan Anesthesia Risk discussed: Yes Anesthesia Plan: Verified ASA Class: III Anesthesia Type: MAC [facility] History I have reviewed the patient's past medical history: Yes Medical History: Reports:: Arrhythmia, Chronic Obstructive Pulmonary Disease (COPD), Hiatal Hernia, Home Oxygen, Hyperlipidemia, Hypertension, Lung Disease (copd, USES OXYGEN NIGHTLY) Denies:: Cancer, Diabetes Mellitus Type 1, Diabetes Mellitus Type 2, Internal Pacemaker, MRSA, Seizures *Have you ever received a pneumonia vaccine?: Yes *Have you received a flu vaccine this season?: No Anesthesia experience/problems:: nac Laterality Cases: Bilateral: Cataract Other Surgeries: Yes: Appendectomy, Hysterectomy-Partial, Other. No: Pacemaker Amputation: No Fractures: No - *Social History Last grade of school completed: 9th or 10th Smoking Status: Former smoker Tobacco Type: cigarettes # Packs/Day (cigarettes): 2 #Yrs smoked (if former smoker): 20 Smoking End Date: 1994 Alcohol Intake: never Substance Use Type: denies use *Occupational Status:: retired Housing: house Household Members: spouse *Travel in the last 8 weeks: None Family Hx:: Unable to obtain
--- NOTE | 2020-06-16 11:48 | P.PCN_ITS ---
[facility] Procedure Note Procedure Note:: Colonoscopy Procedure Report: Colonoscopy with cold snare polypectomy and cold biopsies Endoscopist: Timothy Booker II, MD Referring physician: LISETTE Barclay Date of Procedure: June 16, 2020 Equipment: Olympus 180 variable stiffness pediatric colonoscope Sedation: MAC sedation Indication: Mrs. Jauregui is a 75-year-old female who has had diarrhea for more than a year. She does get some lower abdominal crampy discomfort that can precede the diarrhea. She also states that the diarrhea often occurs 30 to 60 minutes postprandially. She does get some urgency but no fecal incontinence. She does however state that most often she has to stay at home and does not want to be in an awkward situation where she cannot find a bathroom. The patient does report some bloating and gassiness. She reports no rectal bleeding or weight loss. The patient's father had colon cancer in his late 70s. The patient had a colonoscopy in 2012 ([facility]). Her last colonoscopy was with wa in February 2017 and she had 5 diminutive colon polyps (tubular adenomas x5) removed. Procedure: Prior to the procedure, a history and physical exam was performed, and patient's medications and allergies were reviewed. The risks, benefits and alternatives of the sedation and procedure were discussed with the patient. All questions were answered and informed consent was obtained. The patient was brought to the procedure room. Patient identification and proposed procedure were verified by the physician and the nurse. The patient was placed in a left lateral decubitus position and the scope was passed under direct vision. Throughout the procedure, the patient's blood pressure, pulse, and oxygen saturations were monitored continuously. The colonoscopy was accomplished without difficulty. The patient tolerated the procedure well. Findings: On digital rectal examination there was normal rectal tone. There were no external hemorrhoids. The colonoscope was introduced through the anal canal to the rectum and advanced to the cecum. The ileocecal valve and appendiceal orifice were identified. The scope was advanced a short distance into the ileum which appeared grossly normal. The scope was then withdrawn into the colon. There were 5 colon polyps identified (ascending x1 (12 mm), transverse x2 (3 and 5 mm) and descending x2 (2 and 4 mm)) and all of these polyps were removed via cold snare polypectomy. Cold biopsies were taken from the right colon x4 to rule out microscopic colitis. There were scattered diverticuli throughout the descending and sigmoid colon (LEFT colon). The rectum itself was normal. Upon retroflexion within the rectum there were grade 1-2 internal hemorrhoids. The preparation was excellent throughout with Starkweather Preparation Score of 9. The cecal time was 14 minutes. Impression: 1. Colonic polyps x5 2. Left-sided diverticulosis 3. Grade 1-2 internal hemorrhoids Plan: I will follow-up the biopsies to rule out microscopic colitis. I will likely initiate dietary measures, bulk fiber and antispasmodic (dicyclomine). I will follow up the polyp pathology and recommend repeat colonoscopy again in 3 years based upon the polyp size and number as well as the polyp histology and the patient's family history.
== END 2020-06-16 12:30 | disposition home or self-care (01) ==
LOC: OUTP 10:31
PROVIDERS: PCP Family Medicine; Visit Provider Internal Medicine Gastroenterology
PROC: 0DJD8ZZ Inspection of Lower Intestinal Tract, Via Natural or Artificial Opening Endoscopic (ICD-10-PCS; CPT 45378; principal; 2020-06-16 11:30)
DX: Z80.0 Family history of malignant neoplasm of digestive organs (principal); Z87.19 Personal history of other diseases of the digestive system; K63.5 Polyp of colon; K57.30 Diverticulosis of large intestine without perforation or abscess without bleeding; K64.0 First degree hemorrhoids; J44.9 Chronic obstructive pulmonary disease, unspecified; E78.5 Hyperlipidemia, unspecified; I10 Essential (primary) hypertension; Z99.81 Dependence on supplemental oxygen; I49.9 Cardiac arrhythmia, unspecified; Z90.49 Acquired absence of other specified parts of digestive tract; Z79.899 Other long term (current) drug therapy
CPT/HCPCS: 45380; 45385; 88305

== ENCOUNTER → 2020-09-07 15:10 | Outpatient (CLI) | payer MEDICARE, BC, SELFPAY ==
--- NOTE | 2020-09-07 15:13 | MM_ITS ---
PROCEDURE: MM DIG SCREENING MAMM BI W/CAD Referring Doctor: Ari Benavidez Patient Age:75Y CLINICAL INDICATION: SCREENING. NO HORMONES, NO NEW COMPLAINTS. FAMILY HISTORY SISTER AND COUSIN WITH BREAST CANCER COMPARISON: MG DMSB DIG MAMM-SCREEN LIZ from 08/01/2015 MG DMSB DIG MAMM-SCREEN LIZ from 08/05/2016 US BL US BREAST-LT COMPLETE W/AXILLA from 08/16/2016 MG DMDXUAVL DIG MAMM-DX UNI ADD VIEWS-LT from 08/16/2016 MG DMSB DIG MAMM-SCREEN LIZ W/CAD from 08/22/2017 MG [facility] MM Dig screening mamm BI w/CAD from 08/31/2018 MG MM DIG SCREENING MAMM BI W/CAD from 09/10/2019 TECHNIQUE: Standard CC and MLO images were obtained. R2 CAD reviewed. Bilateral digital breast tomosynthesis included. ADDITIONAL MLO AND CC NIPPLE PROFILE VIEWS BILATERAL FINDINGS: [id number] residual fibroglandular elements.. No suspicious calcifications Right Breast-no new areas of concern similar appearance retroareolar region Left Breast- small 5 mm mm nodular density at superior left breast labeled x. this could be a small cyst as suspect may common go and likely present on 2016.. however would recommend ultrasound and cc, mlo and 90 degree spot views with mole marker further evaluate. there is also a smaller area labeled y more inferior breast seen on mlo view, 4.5 mm size a can be also evaluated when the patient returns. on the left cc tomosynthesis images (1-5) AT inferior left breast there is a small 5 mm nodular density which i suspect may reside inferiorly at skin as seen on mlo view. mole marker should be placed here as well THE THE THE THE (would note labels that i placed at left breast, do not seem to persist with current pacs set up) IMPRESSION: LEFT BREAST OR VERY SMALL NODULAR DENSITIES NOTED-BY FAR MOST LIKELY BENIGN FEATURES, BUT WOULD BENEFIT FROM ULTRASOUND AND SPOT VIEWS TO FURTHER EVALUATE OUTLINED ABOVE IN BODY OF REPORT RIGHT BREAST. STABLE. FOLLOW-UP IN 1 YEAR ON RIGHT BI-RAD Category: 0 Need Additional Imaging Evaluation FOLLOW-UP: IMM Immediate Follow-up Recommended (A letter has been sent to the patient regarding results of the study.) Dictated by: Refugio Pruitt MD 09/11/2020 09:33 Refugio Pruitt MD in [place] 09/11/2020 09:33
== END ==
PROVIDERS: PCP Family Medicine; Visit Provider Family Medicine
DX: Z12.31 Encounter for screening mammogram for malignant neoplasm of breast (principal)
CPT/HCPCS: 77063; 77067

== ENCOUNTER → 2020-09-25 13:39 | Outpatient (POV) | payer MEDICARE, BC, SELFPAY | PROVIDERS: Visit Provider Nurse Practitioner Family | DX: Z00.00 Encounter for general adult medical examination without abnormal findings (principal) ==

== ENCOUNTER → 2020-09-25 14:13 | Outpatient (CLI) | payer MEDICARE, BC, SELFPAY ==
--- NOTE | 2020-09-25 14:18 | MM_ITS ---
PROCEDURE: MM DIG MAMM DX UNILAT LT CAD Digital Breast Tomosynthesis Included CLINICAL INDICATION: ABN MAMM COMPARISON: MG [facility] MM Dig screening mamm BI w/CAD from 08/31/2018 MG MM DIG SCREENING MAMM BI W/CAD from 09/10/2019 MG MM DIG SCREENING MAMM BI W/CAD from 09/07/2020 US US BREAST LT COMPLETE from 09/25/2020 TECHNIQUE: 90 degree lateral view was obtained along with spot compression MLO and CC views viewed. FINDINGS: Scattered fibroglandular densities are seen in the central portion of the breast. The 90 degree lateral view shows no definite suspicious nodular densities. The spot compression views lessen concern of the possible nodular density seen on the previous mammogram. There is a mole marker 12 o'clock position. There are no suspicious microcalcifications. Ultrasound performed the same date showed no abnormal cystic or solid nodules. Recommend the patient continue with yearly screening mammography IMPRESSION: Essentially negative problem solving views with no suspicious lesions seen BI-RAD Category: 1 Negative FOLLOW-UP: 1YR 1 Year Follow-up (A letter has been sent to the patient regarding results of the study.) Dictated by: Dr. Anival Ureña MD 10/01/2020 10:25 Dr. Anival Ureña MD in [place] 10/01/2020 10:25
--- NOTE | 2020-09-25 14:18 | US_ITS ---
PROCEDURE: US BREAST LT COMPLETE CLINICAL INDICATION: ABN MAMM COMPARISON: US BL US BREAST-LT COMPLETE W/AXILLA from 08/16/2016 FINDINGS: Scanning throughout the breast shows diffuse rather homogeneous echogenicity with no suspicious cystic or solid nodule seen. There is no findings to suggest architectural distortion. There is a normal appearing node in the axilla. IMPRESSION: Unremarkable ultrasound the breast with no suspicious lesions seen and recommend the patient continue with yearly screening mammography Dictated by: Dr. Anival Ureña MD 10/01/2020 10:26 Dr. Anival Ureña MD in [place] 10/01/2020 10:26
== END ==
PROVIDERS: PCP Family Medicine; Visit Provider Nurse Practitioner
DX: R92.8 Other abnormal and inconclusive findings on diagnostic imaging of breast (principal)
CPT/HCPCS: 76641; 77061; 77065; G0279

== ENCOUNTER → 2021-07-12 14:20 | Outpatient (CLI) | payer MEDICARE, BC, SELFPAY ==
--- NOTE | 2021-07-12 14:33 | XR_ITS ---
PROCEDURE: XR LUMBAR SPINE MIN 4V CLINICAL INDICATION: LOW BACK PAIN COMPARISON: No exams were available for comparison FINDINGS: There is normal alignment. There is degenerative disc disease from T12-S1. Anterior osteophytes are present at L2-L3 a L4 and L5. No acute fracture or dislocation. No lytic or blastic change. IMPRESSION: Degenerative changes, no acute finding. Dictated by: Lionel Acuña MD 07/12/2021 15:59 Lionel Acuña MD in [place] 07/12/2021 15:59
== END ==
PROVIDERS: PCP Nurse Practitioner Family; Visit Provider Nurse Practitioner Family
DX: M54.50 Low back pain, unspecified (principal)
CPT/HCPCS: 72110

== ENCOUNTER → 2021-09-25 12:52 | Outpatient (CLI) | payer MEDICARE, BC, SELFPAY ==
--- NOTE | 2021-09-25 12:59 | MM_ITS ---
PROCEDURE INFORMATION: Exam: MG Bilateral Screening 3D Mammography Exam date and time: 09/25/2021 12:59 PM Age: 76 years old Clinical indication: Encounter for screening mammogram for malignant neoplasm of breast TECHNIQUE: Imaging protocol: Bilateral screening tomosynthesis and 2D mammography including computer-aided detection (CAD) when performed. COMPARISON: 1. MG MM DIG MAMM DX UNILAT LT CAD 09/25/2020 2:22 PM 2. MG MM DIG SCREENING MAMM BI W/CAD 09/07/2020 3:24 PM FINDINGS: MAMMOGRAPHY: Breast composition: The breast tissue is composed of scattered areas of fibroglandular density. Mass: None. Architectural distortion: None. Calcifications: No suspicious calcifications. Asymmetric density: None. Skin thickening: None. Axillary adenopathy: None. IMPRESSION: No mammographic evidence of malignancy. Annual screening is recommended unless otherwise clinically indicated. ASSESSMENT: BI-RADS Category 1: Negative
== END ==
PROVIDERS: PCP Nurse Practitioner Family; Visit Provider Family Medicine
DX: Z12.31 Encounter for screening mammogram for malignant neoplasm of breast (principal)
CPT/HCPCS: 77063; 77067

== ENCOUNTER 2021-12-02 18:52 | Emergency (ER) | payer MEDICARE, BC, SELFPAY ==
[2021-12-02 19:15] VITALS: BP 147/82; PULSE 117; RESP 24; TEMP 36.7; O2SAT 90; BMI 25.6
--- NOTE | 2021-12-02 19:22 | HMH.EDUTC ---
[facility] [place] Clinical Impression: COPD (chronic obstructive pulmonary disease) Qualifiers: COPD type: unspecified COPD Qualified Code(s): J44.9 - Chronic obstructive pulmonary disease, unspecified Disposition: Home, Self-Care Condition on Discharge: Good Instructions: Chronic Obstructive Pulmonary Disease (Alternative Therapy), COPD: When to Call for Help Additional Instructions: Continue taking Levaquin as prescribed by your Family Doctor Nebulizer treatments will help make sure to take as you was prescribed Prune juice and glycerin suppository may help with constipation and passing of stool Return if needed Straight to ER if any life threatening symptoms Referrals: Ari Benavidez MD [Primary Care Provider] - As needed Time of Disposition: 20:19 Medical Decision Making - Skip Inquiry Pt receiving controlled substance: No Skip was queried for this patient: No Vital Signs: 12/02/21 19:15 Temperature 98.1 F Temperature Source Oral Pulse Rate [Left] 117 H Respiratory Rate 24 Blood Pressure [Right Arm] 147/82 H Blood Pressure Mean [Right Arm] 103 02 Sat by Pulse Oximetry 90 L Oxygen Delivery Method Room Air Medical Decision Narrative: Discussed CXR and patient declined at this time states she needs some steriod Medication discussed with pharmacy After neb and soluMedrol patient states that she is ready to go home laughing and talking with daughter Patient educated to return if any worsening of symptoms Denies SOA states that she is feeling much better [facility] [place] - General Stated complaint: COPD, soa Time Seen by Provider: 12/02/21 19:22 Mode of Arrival: Ambulatory Source of Information: Patient Limitations: No Limitations Description of Symptoms (Recalled from Triage Doc. by RN): pt c/o SOA and wheezing. pt is currently being treated for a sinus infection and is on levaquin 500 mg. pt also states she has not had a BM in 3-4 days. HEENT Symptoms (Recalled from RN notes): Yes Resp Symptoms (Recalled from RN notes): Yes Skin Symptoms (Recalled from RN notes): No MS Symptoms (Recalled from RN notes): No Functional Status (Recalled from RN notes): wnl - History of Present Illness Provider Complaint: Patient state that she is being treated with Levaquin 500mg daily for 10 days for sinus infection and COPD States that she was worried and wanted to know if he medication would help with COPD States that also her PCP wanted to give her a steriod shot and she misunderstood her and told her that she was allergic to it but she is not and wanted to come in and get it because it helps her breath better states that she has also been constipated but she took a Ducolax earlier today and it hasnt had time to move but her belly isnt hurting - Related Data Home Medications Medication Instructions Recorded Confirmed Atorvastatin Calcium [Lipitor 40mg 40 mg PO HS 11/17/17 06/16/20 Tablet*] Mirtazapine [Remeron] 45 mg PO HS 11/17/17 06/16/20 Montelukast Sodium [Montelukast 10 mg PO HS 11/17/17 06/16/20 10mg Tab] Pilocarpine HCl [Salagen] 5 mg PO TID 11/17/17 06/16/20 Umeclidinium Brm/Vilanterol Tr 1 puff IH DAILY 11/17/17 06/16/20 [Anoro Ellipta 62.5-25 Mcg INH] diazePAM [Valium 5mg tablets] 5 mg PO BID 11/17/17 06/16/20 dilTIAZem HCL [Diltiazem 24Hr ER 180 mg PO DAILY 11/17/17 06/16/20 (Xr)] bisoproloL fumarate [Zebeta 5mg 5 mg PO DAILY 05/26/18 06/16/20 tablet] hydroCHLOROthiazide [HCTZ 12.5mg 12.5 mg PO DAILY 05/26/18 06/16/20 capsule] Omeprazole [Omeprazole 40mg 40 mg PO DAILY 12/14/18 06/16/20 Capsule] Venlafaxine HCl [Venlafaxine HCl 225 mg PO DAILY 12/14/18 06/16/20 ER] ondansetron HCL [Ondansetron 4mg 4 mg PO Q8HP PRN 12/14/18 06/16/20 Tablet] Albuterol Sulfate [Albuterol 2.5 mg IH Q4H 06/16/20 06/16/20 0.083% 2.5mg/3mL neb] Allergies Allergy/AdvReac Type Severity Reaction Status Date / Time butorphanol [From STADOL] Allergy Mild Verified 06/16/20 10:52 na
[2021-12-02 20:47] VITALS: BP 147/82; PULSE 117; RESP 24; TEMP 36.7
== END 2021-12-02 20:50 | disposition home or self-care (01) ==
PROVIDERS: Emergency Provider Nurse Practitioner; PCP Family Medicine
DX: J44.9 Chronic obstructive pulmonary disease, unspecified (principal); K59.00 Constipation, unspecified; Z99.81 Dependence on supplemental oxygen; I10 Essential (primary) hypertension; E78.5 Hyperlipidemia, unspecified; Z87.891 Personal history of nicotine dependence; Z88.0 Allergy status to penicillin; Z79.899 Other long term (current) drug therapy
CPT/HCPCS: G0463; 96372; 99213

== ENCOUNTER 2021-12-14 19:37 | Emergency (ER) | payer MEDICARE, BC, SELFPAY ==
[2021-12-14 19:40] VITALS: BP 156/80; PULSE 110; RESP 21; TEMP 36.8; O2SAT 93; BMI 32.0
--- NOTE | 2021-12-14 19:48 | HMH.EDUTC ---
[facility] [place] Dis[place] Clinical Impression: Sinusitis Qualifiers: Sinusitis location: frontal Chronicity: acute Recurrence: non-recurrent Qualified Code(s): J01.10 - Acute frontal sinusitis, unspecified Disposition: Home, Self-Care Condition on Discharge: Good Instructions: Sinusitis, DI for Sinusitis Additional Instructions: Drink plenty of fluids. Take tylenol or ibuprofen for pain or fever. Take the medications as directed. Follow up with your regular doctor. GO TO THE ER FOR ANY WORSENING SYMPTOMS Don't start the oral steroids (Prednisone) until tomorrow, since you had the shot here today. Prescriptions: predniSONE [Deltasone 10mg tablet] 10 mg PO DAILY 9 Days #21 tab Transmission Status: Received by [facility] guaiFENesin [Mucinex 600mg tablet] 1 - 2 tab PO BIDP PRN #30 tab PRN Reason: Congestion Transmission Status: Received by [facility] Cefdinir [Omnicef 300mg Capsule] 300 mg PO BID #20 cap Transmission Status: Received by [facility] Referrals: Brandi Durán APRN [Primary Care Provider] - Time of Disposition: 20:22 Medical Decision Making - Medical Records Medical records reviewed: No: I reviewed the patient's medical records. - Skip Inquiry Pt receiving controlled substance: No Vital Signs: 12/14/21 19:40 12/14/21 20:26 Temperature 98.2 F 98.2 F Temperature Source Oral Pulse Rate 110 H Pulse Rate [Left Brachial] 110 H Respiratory Rate 21 21 Blood Pressure 156/80 H Blood Pressure [Left Arm] 156/80 H Blood Pressure Mean [Left Arm] 105 Blood Pressure Source [Left Arm] Automatic Cuff Blood Pressure Position [Left Arm] Sitting 02 Sat by Pulse Oximetry 93 L Oxygen Delivery Method Room Air Orders (Tests/Meds): ED MEDICATIONS Discontinued Medications Generic Name Dose Route Start Last Admin Trade Name Freq PRN Reason Stop Dose Admin Methylprednisolone Sodium Succinate 125 mg 12/14/21 20:19 12/14/21 20:25 Methylprednisolone Sod Succ 125mg Vial IM 12/14/21 20:20 125 mg ONCE ONE Administration [facility] [place] HPI - General Stated complaint: vomiting, no appetite, sinus congestion Time Seen by Provider: 12/14/21 19:48 - History of Present Illness Provider Complaint: She states that she is having lots of thick sinus drainage that is causing her to be nauseated and vomit at times. She states that she has a sinus infection. - Related Data Home Medications Medication Instructions Recorded Confirmed Atorvastatin Calcium [Lipitor 40mg 40 mg PO HS 11/17/17 06/16/20 Tablet*] Mirtazapine [Remeron] 45 mg PO HS 11/17/17 06/16/20 Montelukast Sodium [Montelukast 10 mg PO HS 11/17/17 06/16/20 10mg Tab] Pilocarpine HCl [Salagen] 5 mg PO TID 11/17/17 06/16/20 Umeclidinium Brm/Vilanterol Tr 1 puff IH DAILY 11/17/17 06/16/20 [Anoro Ellipta 62.5-25 Mcg INH] diazePAM [Valium 5mg tablets] 5 mg PO BID 11/17/17 06/16/20 dilTIAZem HCL [Diltiazem 24Hr ER 180 mg PO DAILY 11/17/17 06/16/20 (Xr)] bisoproloL fumarate [Zebeta 5mg 5 mg PO DAILY 05/26/18 06/16/20 tablet] hydroCHLOROthiazide [HCTZ 12.5mg 12.5 mg PO DAILY 05/26/18 06/16/20 capsule] Omeprazole [Omeprazole 40mg 40 mg PO DAILY 12/14/18 06/16/20 Capsule] Venlafaxine HCl [Venlafaxine HCl 225 mg PO DAILY 12/14/18 06/16/20 ER] ondansetron HCL [Ondansetron 4mg 4 mg PO Q8HP PRN 12/14/18 06/16/20 Tablet] Albuterol Sulfate [Albuterol 2.5 mg IH Q4H 06/16/20 06/16/20 0.083% 2.5mg/3mL neb] Previous Rx's Medication Instructions Recorded Albuterol Sulfate [Albuterol 2.5 mg IH Q4-6H PRN #30 ml 12/02/21 0.083% 2.5mg/3mL neb] Cefdinir [Omnicef 300mg Capsule] 300 mg PO BID #20 cap 12/14/21 guaiFENesin [Mucinex 600mg tablet] 1 - 2 tab PO BIDP PRN #30 tab 12/14/21 predniSONE [Deltasone 10mg tablet] 10 mg PO DAILY 9 Days #21 tab 12/14/21 Allergies Allergy/AdvReac Type Severity Reaction Status Date / Time butorphanol [From STADOL] Allergy
--- NOTE | 2021-12-14 19:51 | XR_ITS ---
PROCEDURE INFORMATION: Exam: XR Chest Exam date and time: 12/14/2021 7:55 PM Age: 76 years old Clinical indication: Shortness of breath and other: Congestion weakness TECHNIQUE: Imaging protocol: XR of the chest. Views: 2 views. COMPARISON: CR XR CHEST 2V 09/23/2019 12:46 PM FINDINGS: Lungs: Chronic interstitial changes are noted bilaterally.. No consolidation. Pleural spaces: Unremarkable. No pleural effusion. No pneumothorax. Heart/Mediastinum: Unremarkable. No cardiomegaly. Bones/joints: Unremarkable. IMPRESSION: No acute findings.
[2021-12-14 20:26] VITALS: BP 156/80; PULSE 110; RESP 21; TEMP 36.8; O2SAT 93
== END 2021-12-14 20:39 | disposition home or self-care (01) ==
LOC: ER 19:40 → UTC 19:42
PROVIDERS: Emergency Provider Nurse Practitioner Family; PCP Nurse Practitioner Family
DX: J01.10 Acute frontal sinusitis, unspecified (principal); J44.9 Chronic obstructive pulmonary disease, unspecified; I10 Essential (primary) hypertension; E78.5 Hyperlipidemia, unspecified; Z99.81 Dependence on supplemental oxygen; Z87.891 Personal history of nicotine dependence; Z79.899 Other long term (current) drug therapy
CPT/HCPCS: 71046; 96372; 99213; G0463

== ENCOUNTER 2021-12-28 13:47 | Emergency (ER) | payer MEDICARE, BC, SELFPAY ==
[2021-12-28 14:47] VITALS: BP 138/80; PULSE 75; RESP 18; TEMP 36.9; O2SAT 94; BMI 28.3
[2021-12-28 14:55] LABS: Adenovirus,PCR Not Detected (NotDetected); Bordetella Pertussis Not Detected (NotDetected); Chlamydophila Pneumoniae, PCR Not Detected (NotDetected); Coronavirus 19, PCR Not Detected (NotDetected); Coronavirus 229E Not Detected (NotDetected); Coronavirus NL63 Not Detected (NotDetected); Coronavirus OC43 Not Detected (NotDetected); Coronovirus HKU1,PCR Not Detected (NotDetected); Human Metapneumovirus Not Detected (NotDetected); Influenza A, PCR Not Detected (NotDetected); Influenza AH1, 2009 Not Detected (NotDetected); Influenza AH1, PCR Not Detected (NotDetected); Influenza AH3,PCR Not Detected (NotDetected); Influenza B, PCR Not Detected (NotDetected); Mycoplasma Pneumoniae, PCR Not Detected (NotDetected); Parainfluenza 1, PCR Not Detected (NotDetected); Parainfluenza 2, PCR Not Detected (NotDetected); Parainfluenza 3, PCR Not Detected (NotDetected); Parainfluenza 4, PCR Not Detected (NotDetected); Respiratory Syncytial Virus Not Detected (NotDetected); Rhinovirus/Enterovirus Not Detected (NotDetected)
--- NOTE | 2021-12-28 15:07 | HMH.EDUTC ---
[facility] – [place] Disposition Clinical Impression: Sinusitis Qualifiers: Sinusitis location: unspecified location Chronicity: unspecified Qualified Code(s): J32.9 - Chronic sinusitis, unspecified Disposition: Home, Self-Care Condition on Discharge: Good Instructions: Sinusitis, DI for Sinusitis Additional Instructions: Take your medication as prescribed Follow up with your Family Doctor if no improvement or any worsening of symptoms Rinse mouth with peroxyle this may help with mouth irritation Straight to ER if any life threatening symptoms Prescriptions: Doxycycline Monohydrate [Doxycycline [place] 100mg Tab] 100 mg PO BID 7 Days #14 tab Transmission Status: Pending to [facility] Fluticasone Propionate [Flonase 50mcg nasal spray 16gm] 1 spr NS DAILY #1 each Transmission Status: Pending to [facility] Referrals: Brandi Durán APRN [Primary Care Provider] - As needed Fred Chavez MD [Physician] - Obey Kong MD [Physician] - Time of Disposition: 15:22 Medical Decision Making - Skip Inquiry Pt receiving controlled substance: No Skip was queried for this patient: No Vital Signs: 12/28/21 14:47 Temperature 98.4 F Temperature Source Oral Pulse Rate [Left] 75 Respiratory Rate 18 Blood Pressure [Right Arm] 138/80 Blood Pressure Mean [Right Arm] 99 02 Sat by Pulse Oximetry 94 L Orders (Tests/Meds): ORDERS Category Date Time Status Full Resp Panel w/COVID ([facility]) Routine Lab 12/28/21 14:48 Received Medical Decision Narrative: Medication discussed with pharmacy [facility] [place] HPI - General Stated complaint: sinus pain Time Seen by Provider: 12/28/21 15:07 Mode of Arrival: Ambulatory Source of Information: Patient Limitations: No Limitations Description of Symptoms (Recalled from Triage Doc. by RN): pt c/o sinus pressure and congestioin. pt was seen here on 12/02 and 12/14. pt has been on antibiotics from her pcp and her second visit here. pt states she just can't seem to get any betther. HEENT Symptoms (Recalled from RN notes): Yes Resp Symptoms (Recalled from RN notes): No Skin Symptoms (Recalled from RN notes): No MS Symptoms (Recalled from RN notes): No Functional Status (Recalled from RN notes): wnl - History of Present Illness Provider Complaint: Patient states that she has been having sinus pain and pressure for about a month - Related Data Home Medications Medication Instructions Recorded Confirmed Atorvastatin Calcium [Lipitor 40mg 40 mg PO HS 11/17/17 06/16/20 Tablet*] Mirtazapine [Remeron] 45 mg PO HS 11/17/17 06/16/20 Montelukast Sodium [Montelukast 10 mg PO HS 11/17/17 06/16/20 10mg Tab] Pilocarpine HCl [Salagen] 5 mg PO TID 11/17/17 06/16/20 Umeclidinium Brm/Vilanterol Tr 1 puff IH DAILY 11/17/17 06/16/20 [Anoro Ellipta 62.5-25 Mcg INH] diazePAM [Valium 5mg tablets] 5 mg PO BID 11/17/17 06/16/20 dilTIAZem HCL [Diltiazem 24Hr ER 180 mg PO DAILY 11/17/17 06/16/20 (Xr)] bisoproloL fumarate [Zebeta 5mg 5 mg PO DAILY 05/26/18 06/16/20 tablet] hydroCHLOROthiazide [HCTZ 12.5mg 12.5 mg PO DAILY 05/26/18 06/16/20 capsule] Omeprazole [Omeprazole 40mg 40 mg PO DAILY 12/14/18 06/16/20 Capsule] Venlafaxine HCl [Venlafaxine HCl 225 mg PO DAILY 12/14/18 06/16/20 ER] ondansetron HCL [Ondansetron 4mg 4 mg PO Q8HP PRN 12/14/18 06/16/20 Tablet] Albuterol Sulfate [Albuterol 2.5 mg IH Q4H 06/16/20 06/16/20 0.083% 2.5mg/3mL neb] Previous Rx's Medication Instructions Recorded Albuterol Sulfate [Albuterol 2.5 mg IH Q4-6H PRN #30 ml 12/02/21 0.083% 2.5mg/3mL neb] Cefdinir [Omnicef 300mg Capsule] 300 mg PO BID #20 cap 12/14/21 guaiFENesin [Mucinex 600mg tablet] 1 - 2 tab PO BIDP PRN #30 tab 03/25/22 predniSONE [Deltasone 10mg tablet] 10 mg PO DAILY 9 Days #21 tab 12/14/21 Doxycycline Monohydrate 100 mg PO BID 7 Days #14 tab 12/28/21 [Doxycycline [place] 100mg Tab] Fluticasone Propionate [Flonase 1 spr NS DAILY #1 each 12/28/
[2021-12-28 15:29] VITALS: BP 138/80; PULSE 75; RESP 18; TEMP 36.9
== END 2021-12-28 15:32 | disposition home or self-care (01) ==
PROVIDERS: Emergency Provider Nurse Practitioner; PCP Nurse Practitioner Family
DX: J32.9 Chronic sinusitis, unspecified (principal); Z99.81 Dependence on supplemental oxygen; I10 Essential (primary) hypertension; J44.9 Chronic obstructive pulmonary disease, unspecified; E78.5 Hyperlipidemia, unspecified; Z79.899 Other long term (current) drug therapy; Z88.0 Allergy status to penicillin
CPT/HCPCS: 87581; 87632; 87798; 99213; C9803; G0463; U0003; U0005

== ENCOUNTER → 2022-02-06 07:48 | Outpatient (CLI) | payer MEDICARE, BC, SELFPAY ==
--- NOTE | 2022-02-06 10:36 | XR_ITS ---
FINAL REPORT CLINICAL HISTORY: chest pain, SOB COMPARISON: December 14, 2021 FINDINGS: Two views of the chest were obtained. The heart size and pulmonary vascularity are within normal limits. There is stable eventration of the right hemidiaphragm. There is mild left lung base scarring There is no pneumothorax. The bony thorax is intact. IMPRESSION: Mild left lung base scarring. Stable eventration of the right hemidiaphragm. Reviewed, Interpreted and Dictated by Kendall Farah III, MD Transcribed by Gerda Wells Authenticated by Kendall Farah III, MD on 02/06/2022 12:54:34 PM [facility]
--- NOTE | 2022-02-06 10:53 | HMH.ITSHM ---
Current Home Medications as stated by this patient Theresa Jauregui or practice representative. []LEVOTHYROXINE HCTZ DILTIAZEM DIAZEPAM BISOPROLOL VENLAFAXINE ANORO MONTELUKAST MIRTAZAPINE FLUTICASONE DOXYCYCLINE ATORVASTATIN ALBUTEROL
== END ==
PROVIDERS: PCP Nurse Practitioner Family; Visit Provider Internal Medicine
DX: I25.10 Atherosclerotic heart disease of native coronary artery without angina pectoris (principal); J44.9 Chronic obstructive pulmonary disease, unspecified; R06.00 Dyspnea, unspecified; R07.89 Other chest pain
CPT/HCPCS: 71046; 78452; 93017; 93306; A9502; J2785

== ENCOUNTER → 2022-02-08 09:47 | Outpatient (CLI) | payer MEDICARE, BC, SELFPAY ==
[2022-02-08 10:45] VITALS: PULSE 69; PULSE 70
== END ==
PROVIDERS: PCP Nurse Practitioner Family; Visit Provider Internal Medicine
DX: R06.09 Other forms of dyspnea (principal)
CPT/HCPCS: 94060; 94640; 94727; 94729

== ENCOUNTER → 2022-02-28 10:08 | Outpatient (CLI) | payer MEDICARE, BC, SELFPAY | PROVIDERS: PCP Nurse Practitioner Family; Visit Provider Internal Medicine Pulmonary Disease | DX: R06.09 Other forms of dyspnea (principal) | CPT/HCPCS: 94762 ==

== ENCOUNTER 2022-07-15 12:39 | Emergency (ER) | payer MEDICARE, BC, SELFPAY ==
[2022-07-15 12:45] VITALS: BP 143/74; PULSE 88; RESP 19; TEMP 36.7; O2SAT 90; BMI 25.9
[2022-07-15 13:01] VITALS: BP 68/43; O2SAT 95
--- NOTE | 2022-07-15 13:10 | HMH.EDURI ---
Discharge Plan Disposition Patient Disposition: Home, Self-Care Prescriptions Prescriptions: New prednisone [prednisone] 20 mg tablet 20 mg PO BID Qty: 10 0RF levofloxacin 500 mg tablet 500 mg PO DAILY Qty: 7 0RF No Action levothyroxine 25 mcg tablet 25 mcg PO DAILY bisoprolol fumarate 5 mg tablet 5 mg PO DAILY Qty: 30 5RF Anoro Ellipta 62.5-25 mcg/actuation blister with device 1 inh IH DAILY 90 Days Qty: 180 3RF albuterol sulfate 90 mcg/actuation HFA aerosol inhaler 2 inh IH Q6H PRN (Reason: shortness of breath or wheezing) 90 Days Qty: 8.5 3RF atorvastatin 40 MG tablet 40 mg PO HS mirtazapine 30 MG tablet 45 mg PO HS montelukast 10 MG tablet 10 mg PO HS diazepam 5 MG tablet 5 mg PO BID diltiazem HCl 180 mg capsule,ext.rel 24h degradable 120 mg PO DAILY hydrochlorothiazide 12.5 MG capsule 12.5 mg PO DAILY venlafaxine 225 tablet extended release 24hr 225 mg PO DAILY albuterol sulfate 2.5 MG/NEB solution for nebulization 2.5 mg IH Q4H albuterol sulfate 2.5 MG/NEB solution for nebulization 2.5 mg IH Q4-6H PRN (Reason: Shortness Of Breath) Qty: 30 0RF doxycycline monohydrate 100 MG tablet 100 mg PO BID 7 Days Qty: 14 0RF Referrals Follow up/Referrals: Brandi Durán APRN [Primary Care Provider] - See instructions Clinical Impressions Clinical Impression: Sinusitis, COPD with acute exacerbation Instructions Patient Instructions: DI for Chronic Obstructive Pulmonary Disease Discharge ED Provider: Teddy Simon URI/Sore Throat HPI General Chief Complaint: Upper Respiratory Infection Stated Complaint: SOA, Congestion Time Seen by Provider: 07/15/22 13:10 Mode of Arrival: Wheelchair Source of Information: Patient and Spouse Limitations: No Limitations Description of Symptoms (Recalled from ER Triage Doc. by RN): Pt c/o productive cough, clogged sinuses, SOA History of Present Illness HPI Narrative: uri sx with cough and sinus congestion with hx of copd uses o2 at night - sx over the last week MD Complaint: cough and nasal congestion Onset (ago): day(s) Duration: intermittent Severity: moderate Able to tolerate fluids by mouth: Yes Related Data Home Medications Medication Instructions Recorded Confirmed atorvastatin 40 mg tablet 40 mg PO HS Cholesterol 11/17/17 02/25/22 diazepam 5 mg tablet 5 mg PO BID Anxiety 11/17/17 02/25/22 mirtazapine 30 mg tablet 45 mg PO HS sleep 11/17/17 02/25/22 montelukast 10 mg tablet 10 mg PO HS allergies 11/17/17 02/25/22 hydrochlorothiazide 12.5 mg capsule 12.5 mg PO DAILY blood pressure 05/26/18 02/25/22 venlafaxine 225 mg tablet,extended 225 mg PO DAILY Depression 12/14/18 02/25/22 release 24 hr albuterol sulfate 2.5 mg/3 mL 2.5 mg inhalation Q4H COPD 06/16/20 02/25/22 (0.083 %) solution for nebulization diltiazem HCl 180 mg 120 mg PO DAILY Heart disease 02/04/22 02/25/22 capsule,extended release 24 hr, controlled levothyroxine 25 mcg tablet 25 mcg PO DAILY 02/04/22 02/25/22 Previous Rx's Medication Instructions Recorded albuterol sulfate 2.5 mg/3 mL 2.5 mg (3 mL) inhalation Q4-6H PRN 12/02/21 (0.083 %) solution for nebulization Shortness Of Breath #30 mL doxycycline monohydrate 100 mg 100 mg PO BID 7 days #14 tabs 12/28/21 tablet bisoprolol fumarate 5 mg tablet 5 mg PO DAILY #30 tabs 02/04/22 albuterol sulfate 90 mcg/actuation 2 inh inhalation Q6H PRN shortness 02/22/22 aerosol inhaler of breath or wheezing 90 days #8.5 grams umeclidinium 62.5 mcg-vilanterol 1 inh inhalation DAILY 90 days 02/22/22 25 mcg/actuation powdr for #180 ea inhalation (Anoro Ellipta) levofloxacin 500 mg tablet 500 mg PO DAILY #7 tabs 07/15/22 prednisone 20 mg tablet 20 mg PO BID #10 tabs 07/15/22 Allergies Allergy/AdvReac Type Severity Reaction Status Date / Time butorphanol [From STADOL] Allergy Mild Verified 02/25/22 11:22 naproxen [NAPROXEN] Allergy Mild
--- NOTE | 2022-07-15 13:13 | XR_ITS ---
FINAL REPORT CLINICAL HISTORY: productive cough, SOA COMPARISON: 02/06/2022 FINDINGS: A single view of the chest was obtained. The heart is normal in size. The mediastinum is unremarkable. There is increased left base opacity which may represent atelectasis or pneumonia. There is no pleural effusion. There is no pneumothorax. There is no acute osseous abnormality. IMPRESSION: Left base opacity may represent atelectasis or pneumonia. Reviewed, Interpreted and Dictated by Kendall Farah III, MD Transcribed by Noa Tinsley Authenticated and [facility]
[2022-07-15 13:21] LABS: Basophils # 0.1 K/mm3 (0-0.2); Basophils % 1.2 % (0.1-2.0); Eosinophils # 0.3 K/mm3 (0.0-0.4); Eosinophils % 3.1 % (0.1-12.0); Hematocrit 46.8 % (37.0-47.0); Hemoglobin 14.8 g/dL (12.2-16.2); Lymphocytes # 1.5 K/mm3 (0.7-4.5); Mean Corpuscular HGB Conc 31.6 g/dL (31.8-35.4); Mean Corpuscular Hemoglobin 28.8 pg (27.0-31.2); Mean Corpuscular Volume 91.1 fl (81-99); Mean Platelet Volume 7.9 fl (7.4-10.4); Monocytes # 0.5 K/mm3 (0.1-1.0); Monocytes % 4.8 % (1.7-9.3); Neutrophils # 7.5 K/mm3 (1.8-7.8); Platelet Count 348 K/mm3 (142-424); Red Blood Count 5.13 M/mm3 (4.20-5.40); Red Cell Distribution Width 14.2 % (11.5-17.5); White Blood Count 9.9 K/mm3 (4.8-10.8)
[2022-07-15 13:23] LABS: Chloride 99 mmol/L (98-107); Sodium 139 mmol/L (136-145)
[2022-07-15 13:24] LABS: Potassium 3.6 mmoL/L (3.5-5.1)
[2022-07-15 13:26] LABS: Alanine Aminotransferase 44 U/L (12-78); Anion Gap 12.6 mEq/L (5-15); Aspartate Amino Transferase 44 U/L (14-36); Bilirubin,Total 0.6 mg/dl (0.2-1.3); Blood Urea Nitrogen 18 mg/dl (7-17); Carbon Dioxide 31 mmol/L (22.0-30.0); Creatinine Clearance Estimated 49 mL/min (50-200); Estimated Glomerular Filt Rate 54 ml/min (>60); GFR (African American) 65 ML/MIN (>60)
[2022-07-15 13:27] LABS: Albumin Level 4.3 g/dl (3.5-5.0); Albumin/Globulin Ratio 1.5 (1.1-1.8); Alkaline Phosphatase 85 U/L (38-126); Globulin 2.9 g/dL (1.3-3.2); Glucose 141 mg/dl (74-100); Total Protein,Serum 7.2 g/dl (6.3-8.2)
[2022-07-15 13:29] VITALS: BP 111/67; PULSE 74; RESP 18; O2SAT 96
--- NOTE | 2022-07-15 13:52 | ECG_ITS ---
APPROVED REPORT Exam: Resting ECG HR:73 bpm ECG Measurements Heart Rate 73 AXES VA 150 P 33 QRSd 82 QRS -43 QT 381 T 29 QTc 407 Conclusion SINUS RHYTHM LEFT AXIS DEVIATION [QRS AXIS < -30] PATTERN CONSISTENT WITH PULMONARY DISEASE MINIMAL ST DEPRESSION [0.025+ mV ST DEPRESSION] ABNORMAL ECG UNCONFIRMED REPORT Electronically signed by : Ari Alcantara MD 07/15/2022 16:35:59
[2022-07-15 14:44] VITALS: BP 127/82; PULSE 69; RESP 20; TEMP 36.8; O2SAT 98
== END 2022-07-15 14:47 | disposition home or self-care (01) ==
PROVIDERS: Emergency Provider Emergency Medicine; PCP Nurse Practitioner Family
DX: J44.1 Chronic obstructive pulmonary disease with (acute) exacerbation (principal); J06.9 Acute upper respiratory infection, unspecified; J32.9 Chronic sinusitis, unspecified; Z79.51 Long term (current) use of inhaled steroids; Z79.52 Long term (current) use of systemic steroids; Z79.899 Other long term (current) drug therapy; Z88.0 Allergy status to penicillin; Z88.6 Allergy status to analgesic agent; Z88.8 Allergy status to other drugs, medicaments and biological substances; Z87.891 Personal history of nicotine dependence
CPT/HCPCS: 71045; 80053; 85025; 93005; 96374; 99284

== ENCOUNTER 2022-07-24 12:21 | Observation (INO) | payer MEDICARE, BC, SELFPAY ==
[2022-07-24] VITALS (13 sets, daily range): BP systolic 126–138; BP diastolic 56–78; PULSE 63–89; RESP 13–26; TEMP 36.4–36.8; O2SAT 92–98; BMI 25.2; BMI 24.5
--- NOTE | 2022-07-24 12:51 | XR_ITS ---
FINAL REPORT CLINICAL HISTORY: SOA COMPARISON: July 15, 2022 FINDINGS: SINGLE VIEW CHEST The heart size is enlarged. The mediastinum is within normal limits. There is mild bibasilar opacity. There is no evidence of pneumothorax. The bony thorax is intact. IMPRESSION: Mild bibasilar opacity could represent atelectasis or scarring. Reviewed, Interpreted and Dictated by Kendall Farah III, MD Transcribed by Kam Jones Authenticated and [facility]
--- NOTE | 2022-07-24 12:51 | CT_ITS ---
FINAL REPORT TECHNIQUE: Axial CT images were performed from the lung bases through the pubic symphysis. Coronal reformats were submitted and reviewed. This study was performed with techniques to keep radiation doses as low as reasonably achievable (ALARA). Individualized dose reduction techniques using automated exposure control or adjustment of mA and/or kV according to the patient's size were employed. CLINICAL HISTORY: abdominal pain, nausea, no BM COMPARISON: November 2018 FINDINGS: Abdomen: There is scarring and multiple nodules in the lung bases that have progressed since the prior exam and are nonspecific. There is a small hiatal hernia. The gallbladder is present. The liver, spleen and pancreas are unremarkable. There is mild bilateral renal scarring. There are no adrenal masses. There is no nephrolithiasis. There is no hydronephrosis. Pelvis: The appendix is not identified. There are no distal ureteral stones. The urinary bladder is unremarkable. There has been hysterectomy. There are scattered sigmoid colon diverticulum. IMPRESSION: Progression of scarring and small nodules in the lung bases is nonspecific but favored to be inflammatory. Additional follow-up chest CT in 6 months may be helpful. Sigmoid diverticulosis without evidence of diverticulitis. Reviewed, Interpreted and Dictated by Kendall Farah III, MD Transcribed by Kam Jones Authenticated and [facility]
[2022-07-24 13:00] LABS: Basophils # 0.2 K/mm3 (0-0.2); Eosinophils # 0.5 K/mm3 (0.0-0.4); Eosinophils % 3.7 % (0.1-12.0); Hematocrit 47.3 % (37.0-47.0); Hemoglobin 15.3 g/dL (12.2-16.2); Lymphocytes # 2.7 K/mm3 (0.7-4.5); Lymphocytes % 18.3 % (10-50); Mean Corpuscular HGB Conc 32.3 g/dL (31.8-35.4); Mean Corpuscular Hemoglobin 28.6 pg (27.0-31.2); Mean Corpuscular Volume 88.6 fl (81-99); Mean Platelet Volume 8.2 fl (7.4-10.4); Monocytes # 0.8 K/mm3 (0.1-1.0); Monocytes % 5.5 % (1.7-9.3); Neutrophils # 10.4 K/mm3 (1.8-7.8); Neutrophils % 71.6 % (37.0-80.0); Platelet Count 467 K/mm3 (142-424); Red Blood Count 5.34 M/mm3 (4.20-5.40); Red Cell Distribution Width 14.1 % (11.5-17.5); White Blood Count 14.6 K/mm3 (4.8-10.8)
[2022-07-24 13:06] LABS: Alanine Aminotransferase 43 U/L (12-78); Albumin Level 4.4 g/dl (3.5-5.0); Alkaline Phosphatase 93 U/L (38-126); Aspartate Amino Transferase 53 U/L (14-36); Bilirubin,Direct 0.2 mg/dl (0.0-0.4); Bilirubin,Indirect 0.4 mg/dL (0.0-0.9); Bilirubin,Total 0.6 mg/dl (0.2-1.3); Bilirubin,Unconjugated 0.5 mg/dL (0.0-1.1); Total Protein,Serum 7.4 g/dl (6.3-8.2)
[2022-07-24 13:07] LABS: Blood Urea Nitrogen 46 mg/dl (7-17); Calcium 9.3 mg/dl (8.4-10.2); Carbon Dioxide 34 mmol/L (22.0-30.0); Estimated Glomerular Filt Rate 29 ml/min (>60); GFR (African American) 35 ML/MIN (>60); Glucose 92 mg/dl (74-100); Lipase 67 U/L (23-300); Magnesium 1.7 mg/dl (1.6-2.3); Potassium 3.1 mmoL/L (3.5-5.1); Sodium 141 mmol/L (136-145)
--- NOTE | 2022-07-24 13:07 | PC.NURSE ---
YOAV ROUNDED NO NEEDS AT THIS TIME
[2022-07-24 13:15] LABS: Anion Gap 15.1 mEq/L (5-15); Chloride 95 mmol/L (98-107)
[2022-07-24 13:16] LABS: NT Pro Brain Natriuretic Pep. 218 pg/mL (0-450)
[2022-07-24 13:20] LABS: Troponin I < 0.01 ng/ml (0.00-0.034)
--- NOTE | 2022-07-24 13:36 | HMH.EDGENADL ---
Discharge Plan Disposition Patient Disposition: Admitted as Observation Condition: Good Clinical Impressions Clinical Impression: FRANCO (acute kidney injury), Acute exacerbation of chronic obstructive pulmonary disease, Acute constipation, Pleural effusion on left Discharge ED Provider: Rissa Johnston General Adult HPI General Chief complaint: Shortness of Breath/Dyspnea Stated complaint: stomach pain, sob Time Seen by Provider: 07/24/22 12:39 History of Present Illness HPI narrative: This patient is a 77-year-old female with a history of COPD who wears 2 L nasal cannula at night, hypertension, hyperlipidemia, CAD, IBS, and diverticulosis presented to the emergency department for evaluation of multiple complaints. She states that she has been sick for 1 week. She states that she is more short of breath than usual, she has a cough, she has constant, aching, lower abdominal pain, nausea, vomiting, she has not had a bowel movement in several days, and she is having fevers. She states that she is generally weak and is not able to do anything. She states she put it off and tried not to come in, however today she felt much worse and was not able to do anything. Nothing seems to make her symptoms better. No other concerns noted at this time. Related Data Home Medications Medication Instructions Recorded Confirmed atorvastatin 40 mg tablet 40 mg PO HS Cholesterol 11/17/17 07/24/22 diazepam 5 mg tablet 5 mg PO BID Anxiety 11/17/17 07/24/22 mirtazapine 30 mg tablet 45 mg PO HS sleep 11/17/17 07/24/22 montelukast 10 mg tablet 10 mg PO HS allergies 11/17/17 07/24/22 hydrochlorothiazide 12.5 mg capsule 12.5 mg PO DAILY blood pressure 05/26/18 07/24/22 venlafaxine 225 mg tablet,extended 225 mg PO DAILY Depression 12/14/18 07/24/22 release 24 hr albuterol sulfate 2.5 mg/3 mL 2.5 mg inhalation Q4H COPD 06/16/20 07/24/22 (0.083 %) solution for nebulization diltiazem HCl 180 mg 120 mg PO DAILY Heart disease 02/04/22 07/24/22 capsule,extended release 24 hr, controlled levothyroxine 25 mcg tablet 25 mcg PO DAILY THYROID 02/04/22 07/24/22 Previous Rx's Medication Instructions Recorded albuterol sulfate 2.5 mg/3 mL 2.5 mg (3 mL) inhalation Q4-6H PRN 12/02/21 (0.083 %) solution for nebulization Shortness Of Breath #30 mL doxycycline monohydrate 100 mg 100 mg PO BID 7 days #14 tabs 12/28/21 tablet bisoprolol fumarate 5 mg tablet 5 mg PO DAILY #30 tabs 02/04/22 albuterol sulfate 90 mcg/actuation 2 inh inhalation Q6H PRN shortness 02/22/22 aerosol inhaler of breath or wheezing 90 days #8.5 grams umeclidinium 62.5 mcg-vilanterol 1 inh inhalation DAILY 90 days 02/22/22 25 mcg/actuation powdr for #180 ea inhalation (Anoro Ellipta) levofloxacin 500 mg tablet 500 mg PO DAILY #7 tabs 07/15/22 prednisone 20 mg tablet 20 mg PO BID #10 tabs 07/15/22 Allergies Allergy/AdvReac Type Severity Reaction Status Date / Time butorphanol [From STADOL] Allergy Mild Verified 07/24/22 15:35 naproxen [NAPROXEN] Allergy Mild Verified 07/24/22 15:35 Penicillins [PENICILLINS] Allergy Mild Verified 07/24/22 15:35 PFSH PFSH Medical History (Updated 07/24/22 @ 15:44 by Yennifer Abdullahi RN) Anxiety Chest pain Depression Hypothyroid Surgical History (Updated 07/24/22 @ 15:44 by Yennifer Abdullahi RN) S/P appy Family History (Updated 07/24/22 @ 15:44 by Yennifer Abdullahi RN) Other Cancer Social History (Updated 07/24/22 @ 15:45 by Yennifer Abdullahi RN) Smoking Status: Former smoker pack-years: 20 alcohol intake: never substance use type: denies use current occupational status: other Travel in the last 8 weeks: Inside the [place] household members: spouse housing: house current occupational exposures/hazards: No caffeine: Yes ROS Obtained: Yes All systems reviewed & no additional complaints except as documented 14 point review of systems obtained and negative except as mentioned in
[2022-07-24 13:48] LABS: Coronavirus 19, PCR Not Detected (NotDetected); Influenza A, PCR Not Detected (NotDetected); Influenza B, PCR Not Detected (NotDetected)
--- NOTE | 2022-07-24 14:15 | PC.NURSE ---
Dr Johnston on phone with Hospitalist at this time
[2022-07-24 14:27] LABS: VBG Base Excess 2.6 mmol/L (-2.4-2.3); VBG HCO3 27.9 mmol/L (23-30); VBG Oxygen Saturation 90.5 % (50-70); VBG PH 7.37 mmol/L (7.31-7.41); VBG PO2 61.7 mmol/L (28-40); VBG Total CO2 29.4 mmol/L (23-27)
--- NOTE | 2022-07-24 15:30 | EXP.HP ---
History of Present Illness *Admission Date: 07/24/22 *Reason for visit:: short of breath, weakness *History of present illness: Mrs. Jauregui is a 77-year-old female with a history of COPD who wears 2 L nasal cannula at night, hypertension, hyperlipidemia, CAD, IBS, and diverticulosis who initially presented to the ER for evaluation of numerous complaints. She states she has been feeling worse over the past week. Saw her primary care last week who diagnosed her with a COPD exacerbation and started her on antibiotics and steroids. She finished that course but unfortunately did not start to feel better. Denies any nausea, vomiting, chest pain. She does complain of some lower abdominal discomfort/cramping, no bowel movement in a week. Denies any fevers or chills. Has not been eating or drinking very well and has had decreased urine output. She came to the ER because of her persistent fatigue and was found to be hypoxic with an acute kidney injury and constipation. Medicine was consulted for admission of COPD exacerbation, constipation, FRANCO. Initiated on breathing treatments and IV fluids. Hemodynamically stable on evaluation after arriving to the floor. Tolerating 2 L nasal cannula with adequate saturations above 90%. [facility] Medical History Anxiety Chest pain Depression Hypothyroid Surgical History S/P appy Family History Cancer Social History Smoking Status: Former smoker pack-years: 20 alcohol intake: never substance use type: denies use current occupational status: other Travel in the last 8 weeks: Inside the [place] household members: spouse housing: house current occupational exposures/hazards: No caffeine: Yes Review of Systems Review of Systems Review of systems (narrative): 14 point review of systems performed, pertinent positives and negatives as per HPI Meds Home Medications and Allergies Home Medications Medication Instructions Recorded Confirmed Type atorvastatin 40 mg tablet 40 mg PO HS Cholesterol 11/17/17 07/24/22 History diazepam 5 mg tablet 5 mg PO BID Anxiety 11/17/17 07/24/22 History mirtazapine 30 mg tablet 45 mg PO HS sleep 11/17/17 07/24/22 History montelukast 10 mg tablet 10 mg PO HS allergies 11/17/17 07/24/22 History hydrochlorothiazide 12.5 mg capsule 12.5 mg PO DAILY blood pressure 05/26/18 07/24/22 History venlafaxine 225 mg tablet,extended 225 mg PO DAILY Depression 12/14/18 07/24/22 History release 24 hr albuterol sulfate 2.5 mg/3 mL 2.5 mg inhalation Q4H COPD 06/16/20 07/24/22 History (0.083 %) solution for nebulization albuterol sulfate 2.5 mg/3 mL 2.5 mg (3 mL) inhalation Q4-6H PRN 12/02/21 07/24/22 Rx (0.083 %) solution for nebulization Shortness Of Breath #30 mL doxycycline monohydrate 100 mg 100 mg PO BID 7 days #14 tabs 12/28/21 07/24/22 Rx tablet bisoprolol fumarate 5 mg tablet 5 mg PO DAILY #30 tabs 02/04/22 07/24/22 Rx diltiazem HCl 180 mg 120 mg PO DAILY Heart disease 02/04/22 07/24/22 History capsule,extended release 24 hr, controlled levothyroxine 25 mcg tablet 25 mcg PO DAILY THYROID 02/04/22 07/24/22 History albuterol sulfate 90 mcg/actuation 2 inh inhalation Q6H PRN shortness 02/22/22 07/24/22 Rx aerosol inhaler of breath or wheezing 90 days #8.5 grams umeclidinium 62.5 mcg-vilanterol 1 inh inhalation DAILY 90 days 02/22/22 07/24/22 Rx 25 mcg/actuation powdr for #180 ea inhalation (Anoro Ellipta) levofloxacin 500 mg tablet 500 mg PO DAILY #7 tabs 07/15/22 07/24/22 Rx prednisone 20 mg tablet 20 mg PO BID #10 tabs 07/15/22 07/24/22 Rx New Prescriptions to Start Prescriptions: Allergies Allergy/AdvReac Type Severity Reaction Status Date / Time butorphanol [From STADOL] Allergy Mild Verified 07/24/22 15:35 nap
--- NOTE | 2022-07-24 15:35 | PC.NURSE ---
CALLED REPORT TO MYAH SOTO.
--- NOTE | 2022-07-24 15:47 | ECG_ITS ---
APPROVED REPORT Exam: Resting ECG HR:65 bpm ECG Measurements Heart Rate 65 AXES KS 135 P 28 QRSd 93 QRS -45 QT 410 T 5 QTc 421 Conclusion SINUS RHYTHM LEFT AXIS DEVIATION [QRS AXIS < -30] PATTERN CONSISTENT WITH PULMONARY DISEASE MODERATE VOLTAGE CRITERIA FOR LVH, CONSIDER NORMAL VARIANT [MEETS CRITERIA IN ONE OF: R(aVL), S(V1), R(V5), R(V5/V6)+S(V1)] ABNORMAL ECG UNCONFIRMED REPORT Electronically signed by : Ari Alcantara MD 07/26/2022 13:30:27
--- NOTE | 2022-07-24 15:55 | PC.NURSE ---
patient has arrived to floor by wheelchair form ED
[2022-07-24 17:40] LABS: Troponin I 0.01 ng/ml (0.00-0.034)
[2022-07-24 17:41] LABS: Microscopic, Urine URINE MICROSCOPIC (MICROSCOPIC)
[2022-07-24 17:44] LABS: Appearance,Urine CLEAR (Clear); Blood, Urine Negative (Negative); Color,Urine YELLOW (Yellow); Glucose,Urine (UA) Negative (Negative); Ketones,Urine TRACE (Negative); Leukocyte Esterase,Urine Negative (Negative); Nitrate,Urine Negative (Negative); Protein,Urine Negative (Negative); Specific Gravity, Urine >= 1.030 (1.005-1.030)
[2022-07-24 17:50] LABS: Bilirubin,Urine 1+ (Negative)
--- NOTE | 2022-07-24 18:26 | PC.NURSE ---
1600 - Pt arrived to the floor via wheelchair accompanied by Tyler (ER). She is alert and oriented x4. Some wheezes noted to lungs. She is currently on 4L NC with O2 sats measuring > 93%. She was 87 on RA. She is an assist x1 to the the bathroom. She states, I just don't feel good . She is currently resting in bed with her daughter at bedside. Bed is locked and in the lowest position, call light is within reach.
[2022-07-24 19:17] LABS: Troponin I 0.01 ng/ml (0.00-0.034)
[2022-07-25 04:00] VITALS: BP 130/68; PULSE 64; RESP 16; TEMP 36.8; O2SAT 95
[2022-07-25 05:00] VITALS: BMI 25.0
--- NOTE | 2022-07-25 06:34 | PC.NURSE ---
Pt a/o x4. Pt able to make needs known to staff. Pt slept majority of shift. Wheezing scattered t/o lungs. Tolerating 3 l nc well with sats in upper 90s. Call light within reach.
[2022-07-25 07:13] LABS: Basophils % 0.4 % (0.1-2.0); Eosinophils % 0.1 % (0.1-12.0); Hematocrit 40.1 % (37.0-47.0); Lymphocytes # 0.7 K/mm3 (0.7-4.5); Lymphocytes % 8.1 % (10-50); Mean Corpuscular HGB Conc 32.7 g/dL (31.8-35.4); Mean Corpuscular Hemoglobin 28.7 pg (27.0-31.2); Mean Corpuscular Volume 87.7 fl (81-99); Mean Platelet Volume 7.8 fl (7.4-10.4); Monocytes # 0.2 K/mm3 (0.1-1.0); Monocytes % 2.6 % (1.7-9.3); Neutrophils # 7.7 K/mm3 (1.8-7.8); Neutrophils % 88.8 % (37.0-80.0); Platelet Count 256 K/mm3 (142-424); Red Blood Count 4.57 M/mm3 (4.20-5.40); Red Cell Distribution Width 13.9 % (11.5-17.5); White Blood Count 8.7 K/mm3 (4.8-10.8)
[2022-07-25 07:25] LABS: Alanine Aminotransferase 27 U/L (12-78); Albumin Level 3.6 g/dl (3.5-5.0); Albumin/Globulin Ratio 1.6 (1.1-1.8); Alkaline Phosphatase 77 U/L (38-126); Anion Gap 13.2 mEq/L (5-15); Aspartate Amino Transferase 37 U/L (14-36); Bilirubin,Total 0.5 mg/dl (0.2-1.3); Blood Urea Nitrogen 49 mg/dl (7-17); Calcium 8.5 mg/dl (8.4-10.2); Carbon Dioxide 34 mmol/L (22.0-30.0); Chloride 95 mmol/L (98-107); Creatinine Clearance Estimated 29 mL/min (50-200); Estimated Glomerular Filt Rate 31 ml/min (>60); GFR (African American) 38 ML/MIN (>60); Globulin 2.3 g/dL (1.3-3.2); Glucose 97 mg/dl (74-100); Magnesium 1.6 mg/dl (1.6-2.3); Potassium 3.2 mmoL/L (3.5-5.1); Sodium 139 mmol/L (136-145); Total Protein,Serum 5.9 g/dl (6.3-8.2)
--- NOTE | 2022-07-25 07:31 | HMH.PHAINT1 ---
Pharmacy Intervention Comments: HOME MEDICATION LIST VERIFIED USING LIST FROM OUTPATIENT PHARMACY
[2022-07-25 07:44] LABS: MANUAL DIFFERENTIAL MANUAL DIFFERENTIAL (MANUAL DIFF)
[2022-07-25 07:52] LABS: Hemoglobin 13.1 g/dL (12.2-16.2)
[2022-07-25 08:00] VITALS: BP 145/75; PULSE 67; RESP 17; TEMP 36.7; O2SAT 95
[2022-07-25 09:36] LABS: Lymphocytes % 5 % (10-50); Monocytes % 2 % (2-9); Neutrophils % 93 % (42-76); Platelet Estimate Normal; RBC Morphology Normal; Total Cells Counted 100
[2022-07-25 10:05] VITALS: PULSE 65; PULSE 68; O2SAT 91
--- NOTE | 2022-07-25 11:03 | HMH.PTEV ---
Physical Therapy Evaluation Rehab PT IP Evaluation Start: 07/25/22 09:43 Freq: ONCE Status: Active Protocol: Document 07/25/22 10:57 CORI (Rec: 07/25/22 11:02 PHOJOEY [id number]) Subjective/History History History 77 yowf adm to [facility] with FRANCO and COPD exac. She reports she lives with spouse, 1-2 steps to enter the home, and is generally independent with all mobility without needing an AD. Subjective Subjective Pt reports feeling better overall, but is a suffering from abdominal cramping and just had an enema administered . She does agree to ambulate to the restroom. Rehab PT IP Eval Objective Appearance Patient Behavior Appropriate Patient Orientation Person,Place,Time Speech Pattern Clear Ambulation Patient Able to Ambulate Yes Ambulation Observation IP General Gait Pattern Observation Shuffling Step Ambulation Distance (feet) 25 Ambulation Assistive Device None Ambulation Ability Contact Guard/Hand Hold Balance Ability to Arise Able, w/o using arms Sitting Balance Steady, safe Standing Balance Steady, wide stance Dynamic Sitting Balance Ability Good Dynamic Standing Balance Ability Fair Transfers Bed Transfer Ability Contact Guard/Hand Hold Chair Transfer Ability Contact Guard/Hand Hold Sit to Stand Bed Transfer Ability Contact Guard/Hand Hold Sit to Stand Chair Transfer Ability Contact Guard/Hand Hold ROM All Extremities PT ROM Status WFL MMT All Extremities PT MMT WFL Rehab PT IP prob,goals,plan Problems Date of Evaluation: 07/25/22 PT IP Problems Transfers,Gait,Self care Rehab Potential Rehab Potential Good Plan PT Intervention Plan Transfers,Gait,Self care, Therapeutic Exercise PT Plan Frequency BID Duration LOS Discharge Goals Bed Transfer Ability Supervision/Stand by Sit to Stand Chair Transfer Ability Supervision/Stand by Ambulation Assistive Device None Ambulation Distance (feet) 40 Discharge Plan PT Discharge Plan Pt is appropriate to return home once medically stable. Recommend Home health therapy vs outpatient therapy upon D/C . G -code Required
[2022-07-25 11:58] VITALS: BMI 25.0
--- NOTE | 2022-07-25 13:38 | HMH.OTEV ---
OT Inpatient Evaluation Rehab OT IP Evaluation Start: 07/25/22 09:43 Freq: ONCE Status: Complete Protocol: Document 07/25/22 13:30 [facility] (Rec: 07/25/22 13:37 [facility] [id number]) Rehab OT IP Assessment Subjective History Pt oriented x 3 on arrival. Pt agreeable to engage in therapy evaluation. Pt was admitted via ED due to SOB and weakness. Prior to being in the hospital, pt lived at home with her . Pt claims she was independent with ADLs such as feeding, dressing, and showering. Pt reports she does minimal cooking (small meals). She is dependent upon her daughter to cook, clean, and do her laundry. She does have a walker and cane at home , but she does not use them for ambulation. Pt has a past medical history of: Anxiety Chest pain Depression Hypothyroid Subjective I am just upset and cold. Objective Patient Orientation Person,Place,Birthday Upper Extremity Gross ROM WFL Bed Mobility bed mobility-scooting,bed mobility - supine/sit,bed mobility - rolling Assist Level Contact Guard/Hand Hold Transfer Training Sit/Stand Transfer Assist Level Minimal x 1 (25% assist) Chair Transfer Ability Minimal x 1 (25% assist) Chair Transfer Technique Sit to/from Ambulatory Rehab OT IP prob,goals,plan Problems Date of Evaluation: 07/25/22 OT IP Problems Bed Mobility,Transfers,Balance ,Self care,Safety Rehab Potential Rehab Potential Good Equipment Needs Assistive Devices Rolling / Wheeled Walker Plan OT intervention Plan Bed Mobility,Transfers,Balance ,Self care,Safety,Therapeutic Exercise OT Plan Frequency BID Duration LOS Discharge Goals Bed Mobility Ability Standby Assistance Sit to Stand Chair Transfer Ability Contact Guard/Hand Hold Chair Transfer Ability Contact Guard/Hand Hold Chair Transfer Technique Sit to/from Ambulatory
[2022-07-25 15:22] VITALS: BP 140/86; PULSE 78; RESP 17; TEMP 37; O2SAT 91
--- NOTE | 2022-07-25 16:14 | PC.NURSE ---
Pt is alert and oriented x4. Some wheezes noted to upper lung [place]. She is currently on 2L NC w/O2 sats measuring > 90%. Pt unable to produce sputum. Specimen cup is at bedside. She's been up to the chair the majority of the shift and tolerated well. She's had 1 BM post enema administration. She is currently resting in the chair watching TV. She denies any complaints at this time.
--- NOTE | 2022-07-25 16:55 | EXP.ACUTE.PN ---
Subjective *Date: 07/25/22 *Time: 16:58 Interval history: Continues to complain of weakness. Still no bowel movement overnight. Persistent cough but no worse. No nausea or vomiting. Stable on 2 L nasal cannula oxygen. Responds well to nebulizers per her report. Remains afebrile. Tolerating fair p.o. intake Medical Exam Vital signs and Labs for Last 24 Hours: Vital Signs Temp Pulse Pulse Resp BP Pulse Ox 07/25/22 15:22 98.6 F 78 17 140/86 91 L 07/25/22 10:05 65 07/25/22 10:05 68 07/25/22 10:05 91 L 07/25/22 08:00 98.1 F 67 17 145/75 H 95 07/24/22 20:00 98 07/25/22 04:00 98.2 F 64 16 130/68 95 07/24/22 20:00 98 F 73 16 128/56 L 92 L 07/24/22 22:02 66 07/24/22 22:02 66 07/24/22 18:22 98 07/24/22 18:21 78 07/24/22 18:21 78 Intake and Output 07/25/22 07/25/22 07/25/22 07:59 15:59 23:59 Intake Total 664 / 1204 540 / 1204 Output Total 350 / 350 0 / 350 Balance 314 / 854 540 / 854 Intake: Intake, Oral Amount 540 / 540 Intake, Total IV Amount 664 / 664 Levofloxacin/D5w 500 mg In 100 100 / 100 ml @ 100 mls/hr IV Q24H NIKOLAS Rx# :[id number] Ringers Solution,Lactated 1,000 564 / 564 ml @ 100 mls/hr IV .Q10H NIKOLAS Rx#:[id number] Output: Output, Urine Amount 350 / 350 0 / 350 Other: Number of Unmeasured Voids 1 Weight 61.552 kg 61.55 kg Patient Weight 07/25/22 23:59 Weight 61.55 kg Laboratory Results - last 24 hr 07/24/22 16:30: Troponin I 0.01 07/24/22 17:38: Urine Color Yellow, Urine Appearance Clear, Urine pH 6.0, Ur Specific [place] >= 1.030, Urine Protein Negative, Urine Glucose (UA) Negative, Urine Ketones Trace, Urine Blood Negative, Urine Nitrate Negative, Urine Bilirubin 1+ A, Urine Urobilinogen 1.0, Ur Leukocyte Esterase Negative, Urine RBC None, Urine WBC 3-5, Ur Squamous Epith Cells 3-5, Urine Bacteria None 07/24/22 18:46: Troponin I 0.01 07/25/22 06:56: WBC 8.7 D, RBC 4.57, Hgb 13.1 D, Hct 40.1, MCV 87.7, MCH 28.7, MCHC 32.7, RDW 13.9, Plt Count 256 D, MPV 7.8, Neut % (Auto) 88.8 H, Lymph % (Auto) 8.1 L, Power % (Auto) 2.6, Eos % (Auto) 0.1, Baso % (Auto) 0.4, Neut # (Auto) 7.7, Lymph # (Auto) 0.7, Power # (Auto) 0.2, Eos # (Auto) 0.0, Baso # (Auto) 0.0, Total Counted 100, Neutrophils % (Manual) 93 H, Lymphocytes % (Manual) 5 L, Monocytes % (Manual) 2, Platelet Estimate Normal, RBC Morphology Normal 07/25/22 06:56: Sodium 139, Potassium 3.2 L, Chloride 95 L, Carbon Dioxide 34 H, Anion Gap 13.2, BUN 49 H, Creatinine 1.60 H, Estimated Creat Clear 29, Estimated GFR 31 L, Est GFR ( Amer) 38 L, Glucose 97, Calcium 8.5, Magnesium 1.6, Total Bilirubin 0.5, AST 37 H D, ALT 27 D, Alkaline Phosphatase 77, Total Protein 5.9 L, Albumin 3.6 D, Globulin 2.3, Albumin/Globulin Ratio 1.6 I & O for Labs for Last 24 Hours: Intake & Output 07/22/22 07/23/22 07/24/22 07/25/22 23:59 23:59 23:59 23:59 Intake Total 60 60 1204 / 1204 Output Total 0 / 0 350 / 350 Balance 854 / 854 Weight 60.81 kg 61.55 kg Constitutional: Present mild distress, average body habitus and chronically ill appearing Head: Present atraumatic and normocephalic ENT: Present normal exam Neck: Present normal inspection and trachea midline Respiratory: Present accessory muscle use, rhonchi, wheezes, crackles and diminished air movement Cardiac: Present Reg Rate and Rhythm; Absent No Murmur GI: Present soft, tenderness (Non focal) and normal bowel sounds; Absent distention Extremities: Present normal inspection and full ROM Skin: Present intact; Absent erythema Neuro: Present Grossly Intact, alert, awake, oriented x 3 and moves all extremities Assessment and Plan *Assessment and plan (1) COPD with acute exacerbation: Status: Acute Category: Medical Code(s): J44.1 - Chronic obstructive pulmonary disease with (acute) exacerbation (2) FRANCO (acute kidney injury)
[2022-07-25 20:00] VITALS: BP 152/74; PULSE 75; RESP 20; TEMP 36.6; O2SAT 90
[2022-07-25 23:40] VITALS: O2SAT 2
[2022-07-26] VITALS (7 sets, daily range): BP systolic 134–156; BP diastolic 64–85; PULSE 65–79; RESP 16–22; TEMP 36.4–36.6; O2SAT 92–95; BMI 25.4
--- NOTE | 2022-07-26 01:44 | PC.NURSE ---
Report received from Stacy Siddiqui RN
--- NOTE | 2022-07-26 05:31 | PC.NURSE ---
Since assuming care of this patient, she has rested well. Has ambulated to the bathroom with assistance x1. Reports 2 small bowel movements. Denies any pain. Denies CP. Did c/o soa after returning the bed at 0415 after going to the bathroom, and requested a prn breathing tx, which she states helped. LS diminished t/o. Remains on 2L NC. VSS. No acute distress noted, will continue to monitor.
[2022-07-26 07:42] LABS: Basophils % 0.2 % (0.1-2.0); Hematocrit 36.7 % (37.0-47.0); Hemoglobin 12.3 g/dL (12.2-16.2); Lymphocytes # 1.1 K/mm3 (0.7-4.5); Lymphocytes % 6.1 % (10-50); Mean Corpuscular HGB Conc 33.5 g/dL (31.8-35.4); Mean Corpuscular Hemoglobin 29.7 pg (27.0-31.2); Mean Corpuscular Volume 88.7 fl (81-99); Mean Platelet Volume 8.4 fl (7.4-10.4); Monocytes # 0.9 K/mm3 (0.1-1.0); Monocytes % 5.4 % (1.7-9.3); Neutrophils # 15.3 K/mm3 (1.8-7.8); Neutrophils % 88.3 % (37.0-80.0); Platelet Count 263 K/mm3 (142-424); Red Blood Count 4.14 M/mm3 (4.20-5.40); White Blood Count 17.3 K/mm3 (4.8-10.8)
[2022-07-26 07:51] LABS: MANUAL DIFFERENTIAL MANUAL DIFFERENTIAL (MANUAL DIFF)
[2022-07-26 07:54] LABS: Alanine Aminotransferase 24 U/L (12-78); Albumin Level 3.3 g/dl (3.5-5.0); Albumin/Globulin Ratio 1.5 (1.1-1.8); Alkaline Phosphatase 75 U/L (38-126); Anion Gap 12.2 mEq/L (5-15); Aspartate Amino Transferase 34 U/L (14-36); Bilirubin,Total 0.2 mg/dl (0.2-1.3); Blood Urea Nitrogen 47 mg/dl (7-17); Calcium 8.4 mg/dl (8.4-10.2); Carbon Dioxide 33 mmol/L (22.0-30.0); Chloride 99 mmol/L (98-107); Creatinine Clearance Estimated 34 mL/min (50-200); Estimated Glomerular Filt Rate 37 ml/min (>60); GFR (African American) 44 ML/MIN (>60); Globulin 2.2 g/dL (1.3-3.2); Glucose 102 mg/dl (74-100); Magnesium 1.4 mg/dl (1.6-2.3); Potassium 3.2 mmoL/L (3.5-5.1); Sodium 141 mmol/L (136-145); Total Protein,Serum 5.5 g/dl (6.3-8.2)
--- NOTE | 2022-07-26 08:17 | EXP.DC.SUM ---
General Admission date:: 07/24/22 Discharge date: 07/27/22 HPI HPI HPI: Mrs. Jauregui is a 77-year-old female with a history of COPD who wears 2 L nasal cannula at night, hypertension, hyperlipidemia, CAD, IBS, and diverticulosis who initially presented to the ER for evaluation of numerous complaints. She states she has been feeling worse over the past week. Saw her primary care last week who diagnosed her with a COPD exacerbation and started her on antibiotics and steroids. She finished that course but unfortunately did not start to feel better. Denies any nausea, vomiting, chest pain. She does complain of some lower abdominal discomfort/cramping, no bowel movement in a week. Denies any fevers or chills. Has not been eating or drinking very well and has had decreased urine output. She came to the ER because of her persistent fatigue and was found to be hypoxic with an acute kidney injury and constipation. Medicine was consulted for admission of COPD exacerbation, constipation, FRANCO. Initiated on breathing treatments and IV fluids. Hemodynamically stable on evaluation after arriving to the floor. Tolerating 2 L nasal cannula with adequate saturations above 90%. Hospital Course Hospital Course Hospital Course: 77-year-old female who presents with FRANCO and new daytime oxygen requirement.? Admitted for COPD exacerbation and acute kidney injury.? Initiated on 2 to 3 L nasal cannula oxygen during the day. Patient already wears 2 to 3 L at night when she sleeps at home. Initiated on antibiotics and steroids. Breathing treatments 4 times a day. Showed gradual improvement in symptoms. Fluid resuscitation for FRANCO, kidney function steadily improved during hospitalization. Patient's condition complicated by her Sjogren's and IBS. On day of discharge was tearful that she had to wear oxygen during the day as well. Medically stable for discharge home to finish antibiotics and steroids. Recommended follow-up with pulmonology and primary care in the coming weeks. Problems addressed during hospitalization as follows: COPD with exacerbation Hypoxia -Daytime hypoxia noted on admission. Meets criteria for continuous oxygen, already established at home for nighttime. Treated with nebulizers every 6 hours, started on IV levofloxacin and methylprednisolone. Transition to oral antibiotics prior to discharge home. We will complete 5 days of steroids and 7 days of antibiotics. Resume home Anoro at discharge. PFTs from earlier this year (January) show moderate COPD. Follow-up with Dr. Zavala in the next 2 weeks. FRANCO -Admitted with creatinine of 1.7, improved to baseline by discharge. Treated with IV fluids. Patient does not drink adequate volumes at home. Constantly dry due to her Sjogren's. Encouraged p.o. hydration. Replaced electrolytes as needed for low potassium and magnesium. Constipation treated with docusate/senna. Will send home with a prescription. Continued her home medication for hypertension, sleep, and anxiety recommend continuous O2 at home, can attempt to wean in the coming weeks. Exam Data for Last 24 hours Vital signs and Labs for Last 24 Hours: Temp Pulse Resp BP Pulse Ox 97.6 F 66 16 145/75 H 95 07/26/22 04:00 07/26/22 04:14 07/26/22 04:00 07/26/22 04:00 07/26/22 04:00 Laboratory Results - last 24 hr 07/25/22 06:56: Total Counted 100, Neutrophils % (Manual) 93 H, Lymphocytes % (Manual) 5 L, Monocytes % (Manual) 2, Platelet Estimate Normal, RBC Morphology Normal 07/26/22 07:15: WBC 17.3 H D, RBC 4.14 L, Hgb 12.3, Hct 36.7 L, MCV 88.7, MCH 29.7, MCHC 33.5, RDW 14.0, Plt Count 263, MPV 8.4, Neut % (Auto) 88.3 H, Lymph % (Auto) 6.1 L, [place] % (Auto) 5.4, Eos % (Auto) 0.0 L, Baso % (Auto) 0.2, Neut # (Auto) 15.3 H, Lymph # (Auto) 1.1, [place] # (Auto) 0.9, Eos # (Auto) 0.0, Baso # (Auto) 0.0 07/26/22 07:15: Sodium 141, Potassium 3.2 L, Chloride 99, Carbon Dioxide 33 H, Anion Gap 12.2, BUN 47 H, Creatinine 1.40 H, Estimat
[2022-07-26 08:33] LABS: Lymphocytes % 9 % (10-50); Monocytes % 4 % (2-9); Neutrophils % 87 % (42-76); Platelet Estimate Normal; RBC Morphology Normal; Total Cells Counted 100
--- NOTE | 2022-07-26 18:19 | PC.NURSE ---
NO CHANGES SINCE PREVIOUS ASSESSMENT. CONTINUES ON 2LNC FOR O2 SUPPORT. LUNG SOUNDS ARE DIMINISHED IN BILATERAL BASES WITH EXPIRATORY WHEEZING NOTED ON SUSCULTATION OF UPPER LUNG VALLE.
--- NOTE | 2022-07-26 18:33 | EXP.ACUTE.PN ---
Subjective *Date: 07/26/22 *Time: 18:33 Interval history: Continues to complain of just feeling weak this morning. Complains of dry mouth which is chronic with her Sjogren's disorder. Has had bowel movements overnight. Tolerating fair p.o. intake. Oxygen weaned to 2 L. Remains afebrile and hemodynamically stable. Reviewed labs, renal function stable. Denies any nausea, vomiting, chest pain. When asked how she feels she states that she just feels yucky, cannot give specific as to why she does not feel better. Not sleeping well in the hospital. Medical Exam Vital signs and Labs for Last 24 Hours: Vital Signs Temp Pulse Pulse Resp BP Pulse Ox 07/26/22 16:00 97.9 F 76 22 134/64 92 L 07/26/22 08:00 97.8 F 68 20 156/85 H 93 L 07/26/22 04:00 97.6 F 65 16 145/75 H 95 07/26/22 04:14 66 07/26/22 04:14 70 07/25/22 23:40 2 L 07/25/22 20:00 97.8 F 75 20 152/74 H 90 L Intake and Output 07/26/22 07/26/22 07/26/22 07:59 15:59 23:59 Intake Total 940 / 1420 480 / 1420 Output Total 100 / 100 0 / 100 Balance 840 / 1320 480 / 1320 Intake: Intake, Oral Amount 480 / 480 Intake, Total IV Amount 940 / 940 Ringers Solution,Lactated 1,000 940 / 940 ml @ 100 mls/hr IV .Q10H PENDING SALE TO [facility] Rx#:[id number] Output: Output, Urine Amount 100 / 100 0 / 100 Other: Number of Unmeasured Voids 1 1 Number of Bowel Movements 2 1 Weight 62.777 kg Patient Weight 07/26/22 23:59 Weight 62.777 kg Laboratory Results - last 24 hr 07/26/22 07:15: WBC 17.3 H D, RBC 4.14 L, Hgb 12.3, Hct 36.7 L, MCV 88.7, MCH 29.7, MCHC 33.5, RDW 14.0, Plt Count 263, MPV 8.4, Neut % (Auto) 88.3 H, Lymph % (Auto) 6.1 L, [place] % (Auto) 5.4, Eos % (Auto) 0.0 L, Baso % (Auto) 0.2, Neut # (Auto) 15.3 H, Lymph # (Auto) 1.1, [place] # (Auto) 0.9, Eos # (Auto) 0.0, Baso # (Auto) 0.0, Total Counted 100, Neutrophils % (Manual) 87 H, Lymphocytes % (Manual) 9 L, Monocytes % (Manual) 4, Platelet Estimate Normal, RBC Morphology Normal 07/26/22 07:15: Sodium 141, Potassium 3.2 L, Chloride 99, Carbon Dioxide 33 H, Anion Gap 12.2, BUN 47 H, Creatinine 1.40 H, Estimated Creat Clear 34, Estimated GFR 37 L, Est GFR ( Amer) 44 L, Glucose 102 H, Calcium 8.4, Magnesium 1.4 L D, Total Bilirubin 0.2, AST 34, ALT 24, Alkaline Phosphatase 75, Total Protein 5.5 L, Albumin 3.3 L, Globulin 2.2, Albumin/Globulin Ratio 1.5 I & O for Labs for Last 24 Hours: Intake & Output 07/23/22 07/24/22 07/25/22 07/26/22 23:59 23:59 23:59 23:59 Intake Total 60 / 60 2568 / 2568 1420 / 1420 Output Total 0 / 0 950 / 950 100 / 100 Balance 60 / 60 1618 / 1618 1320 / 1320 Weight 60.81 kg 61.55 kg 62.777 kg Microbiology Reports for the Last 24 Hours: Microbiology 07/24/22 12:45 Blood Blood Culture - Preliminary NO GROWTH AFTER 48 HOURS 07/24/22 12:45 Blood Blood Culture - Preliminary NO GROWTH AFTER 48 HOURS 07/24/22 17:38 Urine,Clean Catch Urine Culture - Preliminary Constitutional: Present no acute distress, average body habitus and chronically ill appearing Head: Present atraumatic and normocephalic ENT: Present normal exam Neck: Present normal inspection and trachea midline Respiratory: Present accessory muscle use, rhonchi, wheezes, crackles and diminished air movement Cardiac: Present Reg Rate and Rhythm; Absent No Murmur GI: Present soft, tenderness (Non focal) and normal bowel sounds; Absent distention Extremities: Present normal inspection and full ROM Skin: Present intact; Absent erythema Neuro: Present Grossly Intact, alert, awake, oriented x 3 and moves all extremities Assessment and Plan *Assessment and plan (1) COPD with acute exacerbation: Status: Acute Category: Medical Code(s): J44.1 - Chronic obstructive pulmonary disease with (acute) exacerbation (2) FRANCO (acute kidney injury): Status: Acute Categor
[2022-07-27 03:40] VITALS: BP 115/55; PULSE 69; RESP 16; TEMP 36.6; O2SAT 96
[2022-07-27 03:42] VITALS: BMI 25.5
--- NOTE | 2022-07-27 05:41 | PC.NURSE ---
NO ACUTE CHANGES SINCE PREVIOUS ASSESSMENT. PT HAS SLEPT INTERMITTENTLY THIS SHIFT. MOUTH SWABS PROVIDED FOR PT'S DRY MOUTH. TURNING IN BED INDEPENDENTLY. LUNG SOUNDS ARE DIMINISHED. NO C/O N/V/D OR ABD PAIN. AMBULATING WITH X1 ASSIST TO THE BATHROOM. CALL [facility]IN[facility] IN REACH.
[2022-07-27 06:47] VITALS: PULSE 72; PULSE 74; O2SAT 95
[2022-07-27 07:12] LABS: Basophils % 0.3 % (0.1-2.0); Eosinophils # 0.1 K/mm3 (0.0-0.4); Eosinophils % 1.4 % (0.1-12.0); Hematocrit 38.4 % (37.0-47.0); Hemoglobin 12.1 g/dL (12.2-16.2); Lymphocytes # 1.5 K/mm3 (0.7-4.5); Lymphocytes % 18.4 % (10-50); Mean Corpuscular HGB Conc 31.5 g/dL (31.8-35.4); Mean Corpuscular Hemoglobin 28.6 pg (27.0-31.2); Mean Corpuscular Volume 90.7 fl (81-99); Mean Platelet Volume 7.8 fl (7.4-10.4); Monocytes # 0.5 K/mm3 (0.1-1.0); Monocytes % 6.6 % (1.7-9.3); Neutrophils % 73.4 % (37.0-80.0); Platelet Count 188 K/mm3 (142-424); Red Blood Count 4.23 M/mm3 (4.20-5.40); White Blood Count 8.2 K/mm3 (4.8-10.8)
[2022-07-27 07:24] LABS: Alanine Aminotransferase 31 U/L (12-78); Albumin Level 3.1 g/dl (3.5-5.0); Albumin/Globulin Ratio 1.3 (1.1-1.8); Alkaline Phosphatase 72 U/L (38-126); Anion Gap 9.5 mEq/L (5-15); Aspartate Amino Transferase 44 U/L (14-36); Bilirubin,Total 0.3 mg/dl (0.2-1.3); Blood Urea Nitrogen 37 mg/dl (7-17); Calcium 8.6 mg/dl (8.4-10.2); Carbon Dioxide 36 mmol/L (22.0-30.0); Chloride 100 mmol/L (98-107); Creatinine Clearance Estimated 37 mL/min (50-200); Estimated Glomerular Filt Rate 40 ml/min (>60); GFR (African American) 48 ML/MIN (>60); Globulin 2.3 g/dL (1.3-3.2); Glucose 86 mg/dl (74-100); Magnesium 1.5 mg/dl (1.6-2.3); Potassium 3.5 mmoL/L (3.5-5.1); Sodium 142 mmol/L (136-145); Total Protein,Serum 5.4 g/dl (6.3-8.2)
[2022-07-27 08:00] VITALS: BP 143/75; PULSE 80; RESP 18; TEMP 36.6; O2SAT 92
[2022-07-27 09:00] VITALS: O2SAT 95
--- NOTE | 2022-07-27 10:27 | HMH.PHAINT1 ---
Pharmacy Intervention Comments: DISCHARGE MEDICATION COUNSELING PROVIDED. DISCUSSED THE FOLLOWING CHANGES: -STOP HCTZ -CHANGE OF DOSE ON BISOPROLOL FROM 5 MG DAILY TO 2.5 MG DAILY. -START LEVAQUIN (ANTIBIOTIC, DAILY, TAKE WITH FOOD AT 1100 TO CUT BACK ON GI SIDE EFFECTS, RISK OF TENDON RUPTURE) -START PREDNISONE (STEROID, DAILY, TAKE WITH FOOD IN THE MORNING, INSOMNIA, UPSET STOMACH POSSIBLE) -START DOCUSATE/SENNA(STOOL SOFTENER,TWO AT BEDTIME WITH FULL GLASS OF WATER, UPSET STOMACH/BLOATING POSSIBLE) PATIENT VERBALIZED NO QUESTIONS AT THIS TIME.
--- NOTE | 2022-07-29 13:15 | CARE MANAGER ---
Spoke with patient for post-discharge phone interview, he states that patient is good and has no concerns at this ti,
--- NOTE | 2022-07-29 13:17 | CARE MANAGER ---
Spoke with patient for post-discharge phone interview, he states that she is well but could use some help with her medication. Referral will be faxedd for home health for medication management.
--- NOTE | 2022-07-29 13:20 | SW/DCPLANNER ---
Addendum entered by Zoila Garcia 07/29/22 15:51: [facility] will begin tomorrow 07/30/22 for this patient. Original Note: Per ROSA MARIA Rushing) family requested home health services during follow up phone call. Family did not have a preference as to which agency. Patient information/order has been faxed to [facility].
== END 2022-07-27 10:38 | disposition home or self-care (01) ==
LOC: UTC 12:27 → ER 12:36 → 2ND 14:51
PROVIDERS: Admitting Provider Internal Medicine Adolescent Medicine; Emergency Provider Emergency Medicine; PCP Nurse Practitioner Family; Visit Provider Internal Medicine Adolescent Medicine
DX: N17.9 Acute kidney failure, unspecified (principal); J44.1 Chronic obstructive pulmonary disease with (acute) exacerbation; I25.118 Atherosclerotic heart disease of native coronary artery with other forms of angina pectoris; I10 Essential (primary) hypertension; E87.6 Hypokalemia; E83.42 Hypomagnesemia; K58.1 Irritable bowel syndrome with constipation; J90 Pleural effusion, not elsewhere classified; Z79.899 Other long term (current) drug therapy; R06.9 Unspecified abnormalities of breathing; Z20.822 Contact with and (suspected) exposure to COVID-19
CPT/HCPCS: G0378; 36415; 71045; 74176; 80048; 80053; 80076; 81001; 82803; 83605; 83690; 83735; 83880; 84484; 85007; 85025; 87040; 87086; 93005; 94640; 94760; 94761; 97110; 97116; 97162; 97166; 97530; 99285; C9803; J1956; J3475; U0003; U0005

== ENCOUNTER → 2022-09-17 10:37 | Outpatient (CLI) | payer MEDICARE, BC, SELFPAY | PROVIDERS: PCP Nurse Practitioner Family; Visit Provider Internal Medicine Pulmonary Disease | DX: R06.02 Shortness of breath (principal) | CPT/HCPCS: 94762 ==

== ENCOUNTER 2022-09-21 11:59 | Emergency (ER) | payer MEDICARE, BC, SELFPAY ==
--- NOTE | 2022-09-21 13:15 | XR_ITS ---
PROCEDURE INFORMATION: Exam: XR Chest Exam date and time: 09/21/2022 1:14 PM Age: 77 years old Clinical indication: Shortness of breath; Additional info: SOB TECHNIQUE: Imaging protocol: Radiologic exam of the chest. Views: 2 views. COMPARISON: CR XR CHEST PORTABLE 07/24/2022 1:36 PM FINDINGS: Lungs: Calcified granuloma right upper lobe. Hyperlucent changes are demonstrated. Increase in the lung volumes is demonstrated. Pleural spaces: Unremarkable. No pleural effusion. No pneumothorax. Heart/Mediastinum: Unremarkable. No cardiomegaly. Diaphragm: There is flattening of the hemidiaphragms. . Bones/joints: Unremarkable. IMPRESSION: 1. Evidence of prior granulomatous disease. 2. No evidence of acute cardiopulmonary disease.
--- NOTE | 2022-09-21 13:20 | EXP.UTC ---
Discharge Plan Disposition Patient Disposition: Home, Self-Care Condition: Good Prescriptions Prescriptions: New prednisone 10 mg tablet 10 mg PO DIRECTED 9 Days Qty: 21 0RF Rx Instructions: Take 4 tablets daily for 3 days, then take 2 tablets daily for 3 days, then take 1 tablet daily for 3 days, then stop. benzonatate [benzonatate] 100 mg capsule 100 mg PO TIDP PRN (Reason: Cough) Qty: 30 0RF cefdinir 300 mg capsule 300 mg PO BID Qty: 20 0RF guaifenesin [Mucinex] 600 mg tablet extended release 12hr 600 - 1,200 mg PO BIDP PRN (Reason: Congestion) Qty: 30 0RF No Action levothyroxine 25 mcg tablet 25 mcg PO DAILY Anoro Ellipta 62.5-25 mcg/actuation blister with device 1 inh IH DAILY 90 Days Qty: 180 3RF albuterol sulfate 90 mcg/actuation HFA aerosol inhaler 2 inh IH Q6H PRN (Reason: shortness of breath or wheezing) 90 Days Qty: 8.5 3RF levofloxacin 500 mg tablet 500 mg PO DAILY bisoprolol fumarate 5 mg tablet 2.5 mg PO DAILY Qty: 30 5RF atorvastatin 40 MG tablet 40 mg PO HS montelukast 10 MG tablet 10 mg PO HS diazepam 5 MG tablet 5 mg PO BID venlafaxine 225 tablet extended release 24hr 225 mg PO DAILY albuterol sulfate 2.5 MG/NEB solution for nebulization 2.5 mg IH Q4HP PRN (Reason: Shortness Of Breath) dicyclomine 20 mg tablet 20 mg PO TIDP PRN (Reason: stomach pain) mirtazapine 45 mg tablet 45 mg PO HS diltiazem HCl 120 mg capsule,extended release 24hr 120 mg PO DAILY sennosides-docusate sodium [Stool Softener-Stimulant Laxat] 8.6-50 mg Tablet 2 tab PO HS 30 Days Qty: 60 0RF prednisone 20 mg Tablet 40 mg PO DAILY 2 Days Qty: 4 0RF levofloxacin 250 mg Tablet 250 mg PO 1100 3 Days Qty: 3 0RF Referrals Follow up/Referrals: Ari Benavidez MD [Primary Care Provider] - See instructions Activity Restrictions/Add. Instructions Additional Instructions/Restrictions: Drink plenty of fluids. Take tylenol or ibuprofen for pain or fever. Take the medications as directed. Follow up with your regular doctor. GO TO THE ER FOR ANY WORSENING SYMPTOMS Don't start the oral steroids until tomorrow, since you had the shot here today. Clinical Impressions Clinical Impression: COPD with acute exacerbation Instructions Patient Instructions: DI for Chronic Obstructive Pulmonary Disease Discharge ED Provider: Pato Graham [facility] General Stated complaint: Deep cough Time Seen by Provider: 09/21/22 13:11 History of Present Illness Provider Complaint: She states that for the past 1 week she has had a productive cough with yellowish sputum. She also has sinus congestion. She has a history of copd. She refuses a cxr and any viral testing today. Related Data Home Medications Medication Instructions Recorded Confirmed atorvastatin 40 mg tablet 40 mg PO HS Cholesterol 11/17/17 08/27/22 diazepam 5 mg tablet 5 mg PO BID Anxiety 11/17/17 08/27/22 montelukast 10 mg tablet 10 mg PO HS allergies 11/17/17 08/27/22 venlafaxine 225 mg tablet,extended 225 mg PO DAILY Depression 12/14/18 08/27/22 release 24 hr albuterol sulfate 2.5 mg/3 mL 2.5 mg inhalation Q4HP PRN 06/16/20 08/27/22 (0.083 %) solution for nebulization Shortness Of Breath levothyroxine 25 mcg tablet 25 mcg PO DAILY hypothyroidism 02/04/22 08/27/22 dicyclomine 20 mg tablet 20 mg PO TIDP PRN stomach pain 07/25/22 08/27/22 diltiazem HCl 120 mg 120 mg PO DAILY heart rate 07/25/22 08/27/22 capsule,extended release 24 hr mirtazapine 45 mg tablet 45 mg PO HS sleep 07/25/22 08/27/22 levofloxacin 500 mg tablet 500 mg PO DAILY 08/27/22 08/27/22 Previous Rx's Medication Instructions Recorded albuterol sulfate 90 mcg/actuation 2 inh inhalation Q6H PRN shortness 02/22/22 aerosol inhaler of breath or wheezing 90 days #8.5 grams umeclidinium 62.5 mcg-vilanterol 1 inh inhalation DAILY 90 days 02/22/22 25 mcg/ac
[2022-09-21 13:22] VITALS: BP 155/81; PULSE 94; RESP 19; TEMP 36.9; O2SAT 93; BMI 23.8
[2022-09-21 14:21] VITALS: BP 155/81; PULSE 94; RESP 19; TEMP 36.9
[2022-09-21 14:38] LABS: Adenovirus,PCR Not Detected (NotDetected); Bordetella Pertussis Not Detected (NotDetected); Chlamydophila Pneumoniae, PCR Not Detected (NotDetected); Coronavirus 19, PCR Not Detected (NotDetected); Coronavirus 229E Not Detected (NotDetected); Coronavirus NL63 Not Detected (NotDetected); Coronavirus OC43 Not Detected (NotDetected); Coronovirus HKU1,PCR Not Detected (NotDetected); Influenza A, PCR Not Detected (NotDetected); Influenza AH1, 2009 Not Detected (NotDetected); Influenza AH1, PCR Not Detected (NotDetected); Influenza AH3,PCR Not Detected (NotDetected); Influenza B, PCR Not Detected (NotDetected); Mycoplasma Pneumoniae, PCR Not Detected (NotDetected); Parainfluenza 1, PCR Not Detected (NotDetected); Parainfluenza 2, PCR Not Detected (NotDetected); Parainfluenza 3, PCR Not Detected (NotDetected); Parainfluenza 4, PCR Not Detected (NotDetected); Respiratory Syncytial Virus Not Detected (NotDetected); Rhinovirus/Enterovirus Not Detected (NotDetected)
[2022-09-21 17:47] LABS: Human Metapneumovirus Detected (NotDetected)
== END 2022-09-21 14:28 | disposition home or self-care (01) ==
PROVIDERS: Emergency Provider Nurse Practitioner Family; PCP Family Medicine
DX: J44.1 Chronic obstructive pulmonary disease with (acute) exacerbation (principal)
CPT/HCPCS: 71046; 87581; 87632; 87798; 94640; 99213; C9803; G0463; U0003; U0005

== ENCOUNTER → 2022-10-03 16:34 | Outpatient (CLI) | payer MEDICARE, BC, SELFPAY ==
--- NOTE | 2022-10-03 16:39 | MM_ITS ---
PROCEDURE INFORMATION: Exam: MG Bilateral Screening 3D Mammography Exam date and time: 10/03/2022 4:29 PM Age: 77 years old Clinical indication: Screening examination. Her sister and cousin had breast cancer. TECHNIQUE: Imaging protocol: Bilateral Screening tomosynthesis and 2D mammography including computer-aided detection (CAD) when performed. COMPARISON: 1. MG MM DIG SCREENING MAMM BI W/CAD 09/25/2021 12:58 PM 2. MG MM DIG MAMM DX UNILAT LT CAD 09/25/2020 2:22 PM 3. MG MM DIG SCREENING MAMM BI W/CAD 09/07/2020 3:24 PM 4. MG MM DIG SCREENING MAMM BI W/CAD 09/10/2019 4:11 PM FINDINGS: MAMMOGRAPHY: Breast composition: There are scattered areas of fibroglandular density. Mass: None. Architectural distortion: None. Calcifications: No suspicious calcifications. Asymmetric density: None. Skin thickening: None. Axillary adenopathy: None. IMPRESSION: No mammographic evidence of malignancy. Annual screening is recommended unless otherwise clinically indicated. ASSESSMENT: BI-RADS Category 1: Negative
== END ==
PROVIDERS: PCP Family Medicine; Visit Provider Nurse Practitioner Family
DX: Z12.31 Encounter for screening mammogram for malignant neoplasm of breast (principal)
CPT/HCPCS: 77063; 77067

== ENCOUNTER 2023-02-21 11:19 | Observation (INO) | payer MEDICARE, BC, SELFPAY ==
[2023-02-21] VITALS (14 sets, daily range): BP systolic 145–193; BP diastolic 71–106; PULSE 66–77; RESP 17–24; TEMP 36.4–36.6; O2SAT 93–97; BMI 31.6; BMI 21.0
--- NOTE | 2023-02-21 11:26 | PC.NURSE ---
Respiratory at BS
--- NOTE | 2023-02-21 11:34 | HMH.EDGENADL ---
Discharge Plan Disposition Patient Disposition: Admitted Chief Complaint: Shortness of Breath/Dyspnea Prescriptions Prescriptions: No Action levothyroxine 25 mcg tablet 25 mcg PO DAILY Anoro Ellipta 62.5-25 mcg/actuation blister with device 1 inh IH DAILY 90 Days Qty: 180 3RF albuterol sulfate 90 mcg/actuation HFA aerosol inhaler 2 inh IH Q6H PRN (Reason: shortness of breath or wheezing) 90 Days Qty: 8.5 3RF bisoprolol fumarate 5 mg tablet 2.5 mg PO DAILY Qty: 30 5RF paroxetine HCl [Paxil] 40 mg tablet 40 mg PO DAILY Qty: 30 1RF atorvastatin 40 MG tablet 40 mg PO HS diazepam 5 MG tablet 5 mg PO BID venlafaxine 225 tablet extended release 24hr 225 mg PO DAILY prednisone 10 mg tablet 10 mg PO DIRECTED 9 Days Qty: 21 0RF Rx Instructions: Take 4 tablets daily for 3 days, then take 2 tablets daily for 3 days, then take 1 tablet daily for 3 days, then stop. albuterol sulfate 2.5 MG/NEB solution for nebulization 2.5 mg IH Q4HP PRN (Reason: Shortness Of Breath) dicyclomine 20 mg tablet 20 mg PO TIDP PRN (Reason: stomach pain) mirtazapine 45 mg tablet 45 mg PO HS diltiazem HCl 120 mg capsule,extended release 24hr 120 mg PO DAILY sennosides-docusate sodium [Stool Softener-Stimulant Laxat] 8.6-50 mg Tablet 2 tab PO HS 30 Days Qty: 60 0RF Referrals Follow up/Referrals: Provider,Referral, [Referring] - See instructions Clinical Impressions Clinical Impression: Acute dehydration, Acute exacerbation of chronic obstructive pulmonary disease, Adult failure to thrive Discharge ED Provider: Sydney Wheeler General Adult HPI General Chief complaint: Shortness of Breath/Dyspnea Stated complaint: WEAKNESS, SOA Time Seen by Provider: 02/21/23 11:34 History of Present Illness HPI narrative: Patient is a 78-year-old female with a history of advanced COPD presents today with inability to get out of bed. History is obtained primarily from patient's daughter who states that she was supposed to be going to her primary care doctor's appointment to get home health established but the patient refused to get out of bed. This has been a slow progressive worsening decline over the last several months according to her daughter stating that she is lost significant amounts of weight will not eat and her breathing has gotten worse. She claims that the patient does have a desire and will to live with her not ready for half-way placement or hospice. The patient states that she has had worsening shortness of breath cough sputum production wheezing over the last few weeks and has had increased oxygen requirement utilizing her home oxygen on a daily basis regularly. She also states she had significant abdominal pain which is diffuse and nonspecific in nature. No urinary or bowel symptoms from historical standpoint but the patient's history is somewhat limited secondary to her clinical state. Related Data Home Medications Medication Instructions Recorded Confirmed atorvastatin 40 mg tablet 40 mg PO HS Cholesterol 11/17/17 12/10/22 diazepam 5 mg tablet 5 mg PO BID Anxiety 11/17/17 12/10/22 venlafaxine 225 mg tablet,extended 225 mg PO DAILY Depression 12/14/18 12/10/22 release 24 hr albuterol sulfate 2.5 mg/3 mL 2.5 mg inhalation Q4HP PRN 06/16/20 12/10/22 (0.083 %) solution for nebulization Shortness Of Breath levothyroxine 25 mcg tablet 25 mcg PO DAILY hypothyroidism 02/04/22 12/10/22 dicyclomine 20 mg tablet 20 mg PO TIDP PRN stomach pain 07/25/22 12/10/22 diltiazem HCl 120 mg 120 mg PO DAILY heart rate 07/25/22 12/10/22 capsule,extended release 24 hr mirtazapine 45 mg tablet 45 mg PO HS sleep 07/25/22 12/10/22 Previous Rx's Medication Instructions Recorded albuterol sulfate 90 mcg/actuation 2 inh inhalation Q6H PRN shortness 02/22/22 aerosol inhaler of breath or wheezing 90 days #8.5 grams umeclidinium 62.5 mcg-vilanterol 1 inh inhalati
[2023-02-21 11:35] LABS: ABG Base Excess -6.2 mmol/L (-2.4-2.3); ABG HCO3 18.9 mmhg (22.0-26.0); ABG Oxygen Saturation 92 % (90-100); ABG PCO2 32.6 mmhg (35.0-45.0); ABG PH 7.38 mmol/L (7.35-7.45); ABG PO2 64.7 mmhg (80-100); ABG TCO2 19.9 mmhg (23-27)
[2023-02-21 11:36] LABS: Oxygen 2L NC %
[2023-02-21 11:37] LABS: Allen's Test Acceptable; Source Left Radial
--- NOTE | 2023-02-21 11:37 | PC.NURSE ---
pt placed on 2L NC for 02 sat of 89.
--- NOTE | 2023-02-21 11:41 | XR_ITS ---
FINAL REPORT CLINICAL HISTORY: dyspnea COMPARISON: 09/21/2022 FINDINGS: The heart size is normal. The mediastinum is normal. There is no focal infiltrate or edema. There are no pleural effusions. There is no pneumothorax. There is no osseous abnormality. There are scattered calcified granulomas present as before. There are chronic changes bilaterally but no acute process is seen. IMPRESSION: No acute cardiopulmonary process Reviewed, Interpreted and Dictated by Ab Burris MD Transcribed by Shaniqua Perera Authenticated and [facility]
--- NOTE | 2023-02-21 11:41 | CT_ITS ---
FINAL REPORT TECHNIQUE: After the administration of oral and intravenous contrast, axial images were obtained through the abdomen and pelvis by computed tomography. The study was performed with techniques to keep radiation dose as low as reasonably achievable, (ALARA). Individual dose reduction techniques using automated exposure control or adjustment of mA and/or kV according to the patient's size were employed. CLINICAL HISTORY: diffuse abd pain FINDINGS: Abdomen: Scarring is seen in the lung bases. There is a small sliding-type hiatal hernia. The liver parenchyma is homogeneous. The gallbladder is moderately distended. There is no surrounding inflammation or wall thickening. Calcified granulomas are seen in the spleen. The pancreas, adrenals and kidneys appear unremarkable. The aorta is normal in caliber. There is no free fluid or adenopathy. Pelvis: The appendix is not identified. The urinary bladder is unremarkable. There is no free fluid or adenopathy. IMPRESSION: Small hiatal hernia. Distended gallbladder. Reviewed, Interpreted and Dictated by Ab Burris MD Transcribed by Noa Tinsley Authenticated and . [facility]
[2023-02-21 11:52] LABS: Basophils % 0.4 % (0.1-2.0); Chloride 99 mmol/L (98-107); Eosinophils % 0.3 % (0.1-12.0); Hematocrit 42.9 % (37.0-47.0); Hemoglobin 13.8 g/dL (12.2-16.2); Lymphocytes % 14.8 % (10-50); Mean Corpuscular Hemoglobin 26.3 pg (27.0-31.2); Mean Platelet Volume 8.9 fl (7.4-10.4); Monocytes # 0.5 K/mm3 (0.1-1.0); Monocytes % 7.3 % (1.7-9.3); Neutrophils # 5.1 K/mm3 (1.8-7.8); Neutrophils % 77.3 % (37.0-80.0); Platelet Count 231 K/mm3 (142-424); Red Blood Count 5.23 M/mm3 (4.20-5.40); Red Cell Distribution Width 15.6 % (11.5-17.5); Sodium 138 mmol/L (136-145); White Blood Count 6.6 K/mm3 (4.8-10.8)
[2023-02-21 11:53] LABS: Potassium 3.8 mmoL/L (3.5-5.1)
[2023-02-21 11:55] LABS: Alanine Aminotransferase 38 U/L (12-78); Alkaline Phosphatase 65 U/L (38-126); Anion Gap 14.8 mEq/L (5-15); Aspartate Amino Transferase 69 U/L (14-36); Bilirubin,Total 0.5 mg/dl (0.2-1.3); Blood Urea Nitrogen 41 mg/dl (7-17); Carbon Dioxide 28 mmol/L (22.0-30.0); Creatinine Clearance Estimated 34 mL/min (50-200); Estimated Glomerular Filt Rate 29 ml/min (>60); GFR (African American) 35 ML/MIN (>60); Lipase 94 U/L (23-300)
[2023-02-21 11:56] LABS: Albumin Level 3.8 g/dl (3.5-5.0); Albumin/Globulin Ratio 1.3 (1.1-1.8); Calcium 8.8 mg/dl (8.4-10.2); Globulin 2.9 g/dL (1.3-3.2); Glucose 75 mg/dl (74-100); Total Protein,Serum 6.7 g/dl (6.3-8.2)
--- NOTE | 2023-02-21 12:07 | ECG_ITS ---
APPROVED REPORT Exam: Resting ECG HR:68 bpm ECG Measurements Heart Rate 68 AXES TN 148 P 36 QRSd 88 QRS -66 QT 397 T 8 QTc 415 Conclusion SINUS RHYTHM LEFT AXIS DEVIATION [QRS AXIS < -30] Late R wave progression - previously noted ABNORMAL ECG UNCONFIRMED REPORT Electronically signed by : Ari Alcantara MD 02/22/2023 07:01:57
[2023-02-21 12:17] LABS: Microscopic, Urine URINE MICROSCOPIC (MICROSCOPIC)
[2023-02-21 12:20] LABS: Appearance,Urine CLEAR (Clear); Blood, Urine Negative (Negative); Color,Urine YELLOW (Yellow); Glucose,Urine (UA) Negative (Negative); Ketones,Urine TRACE (Negative); Leukocyte Esterase,Urine Negative (Negative); Nitrate,Urine Negative (Negative); PH,Urine 5.5 (5.0-8.5); Protein,Urine 2+ (Negative); Specific Gravity, Urine >= 1.030 (1.005-1.030)
[2023-02-21 12:23] LABS: Lactic Acid 1.2 mmol/L (0.7-2.1)
[2023-02-21 12:31] LABS: Bilirubin,Urine Negative (Negative)
[2023-02-21 12:45] LABS: Squamous Epithelial Cell,Urine Occasional #/hpf (0-5); WBC,Urine Occasional #/hpf (0-3)
[2023-02-21 12:46] LABS: Bacteria,Urine Trace /lpf
--- NOTE | 2023-02-21 13:59 | PC.NURSE ---
call to RAD for preliminary results of CT abd/pelvis
[2023-02-21 15:11] LABS: Influenza A, PCR Not Detected (NotDetected); Influenza B, PCR Not Detected (NotDetected)
--- NOTE | 2023-02-21 15:31 | PC.NURSE ---
HOUSE CALLED FOR ADMISSION
[2023-02-21 16:03] LABS: Coronavirus 19, PCR Detected (NotDetected)
--- NOTE | 2023-02-21 17:04 | PC.NURSE ---
arrived by stretcher from ED
--- NOTE | 2023-02-21 18:19 | EXP.HP ---
History of Present Illness *Admission Date: 02/21/23 *Reason for visit:: failure to thrive, weight loss. *History of present illness: 78-year-old female with history of COPD, hypothyroid, Sjogren's, depression. Presented to the ER with failure to thrive. Continues to have poor p.o. intake, poor fluid intake. Complaining of generalized weakness and weight loss. Brought in by family because they are concerned for her continued decline. States that she does not eat very well as food does not taste good and she constantly has a slime feeling in her mouth. Denies any chest pain, nausea, vomiting. Does complain of diffuse abdominal pain. Last bowel movement over a week ago. Family appears quite frustrated with patient's decline and poor p.o. intake. On work-up, patient has an FRANCO. Mild distention of gallbladder on CT of abdomen but no other significant findings. Family and patient requesting admission for malnutrition, FRANCO, failure to thrive. Would like to try and get her placed for further care and skilled therapy. Patient amenable to placement. ER consulted medicine for further management. On arrival to the floor, patient is pleasant. Not eating very well. Requesting broth or protein shake. Stable on room air. Tangential responses to questions. Remembers me from previous admission. Oriented to self, time, place. [facility] Disclaimer: The information contained in this section may have been updated after the patient was seen, as this information can be updated by other users. 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 Travel in the last 8 weeks: None adopted: No caregiver/support person: No foster care: No household members: spouse housing: house lives independently: Yes marital status: number of children: 2 number of grandchildren: 3 education level: other details: she dropped out in the 10th grade current occupational exposures/hazards: No Hx Recent Travel: No sexually active: No caffeine: Yes physical activity: none working smoke detector in home: Yes fire extinguisher in home: Yes carbon monox detector in home: No firearms in home: No do you feel safe at home: Yes victim of physical abuse: No victim of emotional abuse: No victim of sexual abuse: No would you like helpful sources: No Meds Home Medications and Allergies Home Medications Medication Instructions Recorded Confirmed Type atorvastatin 40 mg tablet 40 mg PO HS Cholesterol 11/17/17 12/10/22 History diazepam 5 mg tablet 5 mg PO BID Anxiety 11/17/17 12/10/22 History venlafaxine 225 mg tablet,extended 225 mg PO DAILY Depression 12/14/18 12/10/22 History release 24 hr albuterol sulfate 2.5 mg/3 mL 2.5 mg inhalation Q4HP PRN 06/16/20 12/10/22 History (0.083 %) solution for nebulization Shortness Of Breath levothyroxine 25 mcg tablet 25 mcg PO DAILY hypothyroidism 02/04/22 12/10/22 History albuterol sulfate 90 mcg/actuation 2 inh inhalation Q6H PRN shortness 02/22/22 12/10/22 Rx aerosol inhaler of breath or wheezing 90 days #8.5 grams umeclidinium 62.5 mcg-vilanterol 1 inh inhalation DAILY 90 days 02/22/22 12/10/22 Rx 25 mcg/actuation powdr for #180
[2023-02-21 19:05] LABS: Influenza A, PCR Not Detected (NotDetected); Influenza B, PCR Not Detected (NotDetected)
[2023-02-21 19:25] LABS: Coronavirus 19, PCR Detected (NotDetected)
[2023-02-22] VITALS (8 sets, daily range): BP systolic 134–180; BP diastolic 61–90; PULSE 57–71; RESP 16–19; TEMP 36.4–37; O2SAT 94–99; BMI 21.4
--- NOTE | 2023-02-22 01:05 | EXP.EVENT.NO ---
patient remains stable , ;labs show positive for COVID and Metapneumovir virus , will continue to monitor for any changes .
--- NOTE | 2023-02-22 01:17 | PC.NURSE ---
AT 1999 PATIENT WAS INQUIRING WHY NO ONE TOLD HER SHE WAS COVID +. I ASSURED PATIENT THAT SHE AND HER FAMILY WERE INFORMED BUT THAT MAYBE DUE TO HER DEHYDRATION AND FRANCO THAT SHE MAY NOT HAVE REMEMBERED. PATIENT REMAINS IN AIRBORN/CONTACT PREC.S/ NEGATIVE PRESSURE ROOM ORDERED. PATIENT IS ASYMPTOMATIC. NO COUGH OR RESP DISTRESS NOTED. 02 AT 2LNC. NO C/O PAIN . REPORTS LIQ STOOLS. RECEIVED MIRALAX EARLIER THAT WAS ORDERED AT 1830.
--- NOTE | 2023-02-22 06:01 | DIET.NUTRFU ---
Theresa Admitted with weight loss, dehydration, poor intake. IVF fluids in place. Regular diet order, will eval for supplements. Based on wt hx she has lost 10# in 4mon, wt on 10/28 was 57.6kg. Based on severe loss of appetite and low BMI of 21. She meets severe PCM. Kitchen staff to interview for preferences and supplements
[2023-02-22 07:52] LABS: Basophils % 0.2 % (0.1-2.0); Eosinophils % 0.4 % (0.1-12.0); Hematocrit 43.7 % (37.0-47.0); Hemoglobin 13.7 g/dL (12.2-16.2); Lymphocytes # 0.6 K/mm3 (0.7-4.5); Lymphocytes % 14.7 % (10-50); Mean Corpuscular HGB Conc 31.4 g/dL (31.8-35.4); Mean Corpuscular Hemoglobin 26.3 pg (27.0-31.2); Mean Corpuscular Volume 83.9 fl (81-99); Mean Platelet Volume 8.8 fl (7.4-10.4); Monocytes # 0.3 K/mm3 (0.1-1.0); Monocytes % 6.4 % (1.7-9.3); Neutrophils # 3.2 K/mm3 (1.8-7.8); Neutrophils % 78.3 % (37.0-80.0); Platelet Count 237 K/mm3 (142-424); Red Cell Distribution Width 15.6 % (11.5-17.5); White Blood Count 4.1 K/mm3 (4.8-10.8)
[2023-02-22 07:55] LABS: Chloride 101 mmol/L (98-107); Potassium 3.6 mmoL/L (3.5-5.1); Sodium 140 mmol/L (136-145)
[2023-02-22 07:58] LABS: Blood Urea Nitrogen 47 mg/dl (7-17); Creatinine Clearance Estimated 25 mL/min (50-200); Estimated Glomerular Filt Rate 31 ml/min (>60); GFR (African American) 38 ML/MIN (>60)
[2023-02-22 07:59] LABS: Anion Gap 19.6 mEq/L (5-15); Carbon Dioxide 23 mmol/L (22.0-30.0); Glucose 130 mg/dl (74-100)
[2023-02-22 08:30] LABS: Thyroid Stimulating Hormone 0.52 uIU/mL (0.465-4.68)
--- NOTE | 2023-02-22 10:56 | PC.NURSE ---
i confirmed all home medications that i had available.
--- NOTE | 2023-02-22 12:28 | HMH.PTEV ---
Physical Therapy Evaluation Rehab PT IP Evaluation Start: 02/21/23 16:07 Freq: ONCE Status: Active Protocol: Document 02/22/23 11:46 CYRIL (Rec: 02/22/23 12:28 CYRIL [id number]) Subjective/History History History Pt is a 78 y/o female who presented to [facility] ER on 02/21/23 with failure to thrive with complaints of poor p.o. intake , poor fluid intake, generalized weakness and weight loss. Family is concerned for continued decline. Family and patient requested admission for malnutrition, FRANCO, failure to thrive. Medical History: Anxiety, Chest pain, COPD (chronic obstructive pulmonary disease) , Depression, Dyspnea on exertion, Generalized anxiety disorder, Hypothyroid, Nocturnal hypoxemia, Pulmonary emphysema, Stopped smoking with greater than 30 pack year history Subjective Subjective Pt reports she lives in a single-story home with her who is also in poor health. Pt reports she ambulates without an AD most times but does have a cane if needed, states she does not have a walker. Pt reports she is able to bathe and dress herself independently unless she has diarrhea then is unable to clean herself. Pt reports she wears 2L of oxygen at night but states this often does not feel like enough due to shortness of breath. Pt required minAx1 for sit to stand and 2 steps forward initially. On second attempt with RW, pt performed sit to stand and ambulation of 10 step with CGA. Pt reported shortness of breath and weakness after ambulating 5ft forw
--- NOTE | 2023-02-22 12:30 | HMH.PHAINT1 ---
Pharmacy Intervention Comments: MEDICATION RECONCILIATION COMPLETE USING LIST FROM MOST RECENT BEHAVIORAL HEALTH VISIT (01/2023), EXTERNAL PHARMACY FILL HISTORY, AND CHEMO REPORT.
--- NOTE | 2023-02-22 13:38 | EXP.ACUTE.PN ---
Subjective *Date: 02/22/23 *Time: 13:38 Interval history: Patient did well overnight. Remained stable on 2 L nasal cannula oxygen. No nausea or vomiting. Voiding independently. Had an episode of diarrhea early this morning. Tolerating liquid intake, drinking supplements. No significant solid food intake. Kidney function still abnormal with slight improvement on morning labs. Patient pleasant and interactive on exam. Medical Exam Vital signs and Labs for Last 24 Hours: Vital Signs Temp Pulse Pulse Resp BP BP Pulse Ox 02/22/23 10:51 98.6 F 71 16 180/90 H 95 02/22/23 07:05 97.5 F L 63 18 180/82 H 97 02/22/23 04:00 97.9 F 57 L 19 154/83 H 99 02/22/23 00:00 97.5 F L 61 19 134/61 94 L 02/21/23 20:00 94 L 02/21/23 20:00 97.8 F 77 18 193/91 H 94 L 02/21/23 17:56 97.6 F 70 18 155/78 H 97 02/21/23 16:31 73 17 157/80 H 96 02/21/23 16:00 73 24 155/88 H 97 02/21/23 15:31 72 20 161/81 H 96 02/21/23 15:00 72 170/86 H 97 02/21/23 14:30 71 19 158/84 H 97 02/21/23 14:00 163/80 H Intake and Output 02/21/23 02/22/23 02/22/23 23:59 07:59 15:59 Intake Total 120 / 735 1155 / 1395 240 / 1395 Output Total 1 / 1 0 / 0 0 / 0 Balance 119 / 734 1155 / 1395 240 / 1395 Intake: Intake, Oral Amount 120 / 360 480 / 720 240 / 720 Intake, Total IV Amount 675 / 675 Lactated Ringers 1000ML 1,000 675 / 675 ml @ 75 mls/hr IV .[id number] [facility] Rx#:[id number] Output: Output, Urine Amount 1 / 1 0 / 0 0 / 0 Other: Number of Unmeasured Voids 1 1 1 Number of Bowel Movements 1 1 Weight 52.2 kg 52.98 kg Patient Weight 02/22/23 23:59 Weight 52.98 kg Laboratory Results - last 24 hr 02/21/23 14:40: SARS-CoV-2 (PCR) Detected A, Influenza A Untype (PCR) Not detected, Influenza Type B (PCR) Not detected 02/21/23 17:10: SARS-CoV-2 (PCR) Detected A, Influenza A Untype (PCR) Not detected, Influenza Type B (PCR) Not detected 02/22/23 07:24: WBC 4.1 L D, RBC 5.20, Hgb 13.7, Hct 43.7, MCV 83.9, MCH 26.3 L, MCHC 31.4 L, RDW 15.6, Plt Count 237, MPV 8.8, Neut % (Auto) 78.3, Lymph % (Auto) 14.7, Angelina % (Auto) 6.4, Eos % (Auto) 0.4, Baso % (Auto) 0.2, Neut # (Auto) 3.2, Lymph # (Auto) 0.6 L, Angelina # (Auto) 0.3, Eos # (Auto) 0.0, Baso # (Auto) 0.0 02/22/23 07:24: Sodium 140, Potassium 3.6, Chloride 101, Carbon Dioxide 23, Anion Gap 19.6 H, BUN 47 H, Creatinine 1.60 H, Estimated Creat Clear 25, Estimated GFR 31 L, Est GFR ( Amer) 38 L, Glucose 130 H D, Calcium 9.0, TSH 0.52 I & O for Labs for Last 24 Hours: Intake & Output 02/19/23 02/20/23 02/21/23 02/22/23 23:59 23:59 23:59 23:59 Intake Total 120 / 735 1395 / 1395 Output Total 0 / 0 Balance 119 / 734 1395 / 1395 Weight 52.2 kg 52.98 kg Constitutional: Present no acute distress, thin and chronically ill appearing Head: Present atraumatic and normocephalic ENT: Present normal exam Neck: Present normal inspection and trachea midline Respiratory: Present accessory muscle use, prolonged expiratory phase and diminished air movement; Absent rhonchi, wheezes or crackles Cardiac: Present Reg Rate and Rhythm; Absent No Murmur GI: Present soft, tenderness (Non focal, interval improvement) and normal bowel sounds; Absent distention Extremities: Present normal inspection and full ROM Skin: Present intact; Absent erythema Neuro: Present Grossly Intact, alert, awake, oriented x 3 and moves all extremities Assessment and Plan *Assessment and plan (1) FRANCO (acute kidney injury): Status: Acute Category: Medical Code(s): N17.9 - Acute kidney failure, unspecified (2) Adult failure to thrive: Status: Acute Category: Medical Code(s): R62.7 - Adult failure to thrive (3) Generalized anxiety disorder: Status: Acute Category: Medical Code(s): F41.1 - Generalized anxiety disorder (4) COPD (chronic obstructive pulmonary
[2023-02-23 04:00] VITALS: BP 170/78; PULSE 67; RESP 22; TEMP 36.6; O2SAT 96; BMI 21.4
[2023-02-23 07:14] VITALS: BP 166/77; PULSE 73; RESP 16; TEMP 36.4; O2SAT 98
[2023-02-23 07:54] LABS: Basophils % 0.2 % (0.1-2.0); Eosinophils % 0.1 % (0.1-12.0); Hematocrit 39.2 % (37.0-47.0); Hemoglobin 12.7 g/dL (12.2-16.2); Lymphocytes # 0.8 K/mm3 (0.7-4.5); Lymphocytes % 9.5 % (10-50); Mean Corpuscular HGB Conc 32.4 g/dL (31.8-35.4); Mean Corpuscular Hemoglobin 26.8 pg (27.0-31.2); Mean Corpuscular Volume 82.8 fl (81-99); Mean Platelet Volume 8.7 fl (7.4-10.4); Monocytes # 0.6 K/mm3 (0.1-1.0); Monocytes % 6.3 % (1.7-9.3); Neutrophils # 7.3 K/mm3 (1.8-7.8); Platelet Count 211 K/mm3 (142-424); Red Blood Count 4.73 M/mm3 (4.20-5.40); Red Cell Distribution Width 15.7 % (11.5-17.5); White Blood Count 8.7 K/mm3 (4.8-10.8)
[2023-02-23 08:00] LABS: Chloride 104 mmol/L (98-107); Potassium 4.4 mmoL/L (3.5-5.1); Sodium 142 mmol/L (136-145)
[2023-02-23 08:02] LABS: Alanine Aminotransferase 42 U/L (12-78); Blood Urea Nitrogen 39 mg/dl (7-17); Creatinine Clearance Estimated 33 mL/min (50-200); Estimated Glomerular Filt Rate 44 ml/min (>60); GFR (African American) 53 ML/MIN (>60)
[2023-02-23 08:03] LABS: Albumin Level 3.5 g/dl (3.5-5.0); Albumin/Globulin Ratio 1.3 (1.1-1.8); Alkaline Phosphatase 57 U/L (38-126); Anion Gap 12.4 mEq/L (5-15); Aspartate Amino Transferase 67 U/L (14-36); Bilirubin,Total 0.4 mg/dl (0.2-1.3); Calcium 8.7 mg/dl (8.4-10.2); Carbon Dioxide 30 mmol/L (22.0-30.0); Globulin 2.8 g/dL (1.3-3.2); Glucose 83 mg/dl (74-100); Magnesium 1.8 mg/dl (1.6-2.3); Total Protein,Serum 6.3 g/dl (6.3-8.2)
[2023-02-23 08:17] LABS: Phosphorous 3.1 mg/dl (2.5-4.5)
--- NOTE | 2023-02-23 08:48 | PC.NURSE ---
COURTESY ROUND PATIENT AWAKE EATING BREAKFAST . TRASH EMPTIED AND ICE WATER REFILLED . PATIENT VOICED NO NEEDS AT THIS TIME . CALL WITHIN REACH.
--- NOTE | 2023-02-23 09:11 | PC.NURSE ---
pt reports sleeping fair overnight. She is alert and oriented most of the time, but has moments of confusion as well as issues being a poor historian. She did not want her miralax this morning due to reports of diarrhea. Her lungs are CTA. she did not want to get up in the chair this morning but states she will @ lunch. poor appetite. encouraged po intake. no edema,scattered bruising. continent. anxious @ times. family has called multiple times to check on her. Will continue to monitor
[2023-02-23 10:41] VITALS: BP 164/77; PULSE 72; RESP 16; TEMP 36.8; O2SAT 96
--- NOTE | 2023-02-23 10:59 | EXP.DC.SUM ---
General Admission date:: 02/21/23 Discharge date: 02/23/23 HPI HPI HPI: 78-year-old female with history of COPD, hypothyroid, Sjogren's, depression. Presented to the ER with failure to thrive. Continues to have poor p.o. intake, poor fluid intake. Complaining of generalized weakness and weight loss. Brought in by family because they are concerned for her continued decline. States that she does not eat very well as food does not taste good and she constantly has a slime feeling in her mouth. Denies any chest pain, nausea, vomiting. Does complain of diffuse abdominal pain. Last bowel movement over a week ago. Family appears quite frustrated with patient's decline and poor p.o. intake. On work-up, patient has an FRANCO. Mild distention of gallbladder on CT of abdomen but no other significant findings. Family and patient requesting admission for malnutrition, FRANCO, failure to thrive. Would like to try and get her placed for further care and skilled therapy. Patient amenable to placement. ER consulted medicine for further management. On arrival to the floor, patient is pleasant. Not eating very well. Requesting broth or protein shake. Stable on room air. Tangential responses to questions. Remembers me from previous admission. Oriented to self, time, place. Hospital Course Hospital Course Hospital Course: 78-year-old female with FRANCO and failure to thrive.? History of Sjogren's, depression, hypothyroidism.? Family concerned about patient's decline and progressive weight loss.? Tolerating p.o. intake though not at goal.? Kidney function showed improvement during hospitalization. Creatinine 1.2 on day of discharge. Responded to IV fluids and increased focus on nutrition. Patient remained stable on oxygen, 2 to 3 L during hospitalization. Attempts made to assist with placement, patient does not have a qualifying stay and is COVID-positive. Additionally her mobility and activity at this time make her a better candidate for home health with 24-hour care then placement. Stable for discharge home. Problems addressed as follows: FRANCO Dehydration Protein calorie malnutrition, severe Adult failure to thrive -Creatinine 1.7 on admission.? Baseline appears to be 1.? Treated with IV fluids, creatinine improved to 1.2 on day of discharge. Monitored every 12 hours during admission. Encouraged p.o. intake, this improved during hospitalization. Nutrition was consulted, gave recommendations to provide supplements. Recommend continuing Ensure and boost for meal replacement and protein supplementation. Recommend repeating labs in 1 week with CBC and CMP . Hypothyroidism - On 25 mcg daily, TSH well controlled at 0.5.? Given her weight loss, recommend holding her levothyroxine at this time. Held during her admission. Repeat TSH in 4 weeks. Sjogren's -Complicates her nutritional status and tolerance of p.o. intake.? Has not had a bowel movement over a week, initiated on MiraLAX. Started having bowel movements during hospitalization. Recommend continuing bowel regimen daily for goal of 1-2 soft bowel movements daily. Depression -Continued her mirtazapine for sleep, her Paxil daily, and her Effexor daily. Decreased her dose 250 mg during hospitalization. Concerned that side effects of these medications may complicate her Sjogren's with worsened dry mouth. Mood stable during hospitalization. No behavioral disturbances. Patient remained pleasant and was cooperative with staff. COPD -Wears 2 to 3 L every night and intermittently through the day.? Continue supplemental oxygen with goal saturation greater 90%. Treated with albuterol nebs as needed every 4 hours. Continued her home Anoro. Stable oxygen requirement at discharge. Was COVID-positive at time of admission. No significant symptoms. Continued isolation. -Albuterol nebs as needed every 4 hours -Continue home Anoro Stable for discharge home. Case management assisting with home health. Family
--- NOTE | 2023-02-23 11:49 | HMH.PHAINT1 ---
Pharmacy Intervention Comments: DISCHARGE MEDICATION COUNSELING PROVIDED. DISCUSSED THE FOLLOWING CHANGES: -START MIRALAX (FOR CONSTIPATION, MIX IN A FULL GLASS OF WATER AND DRINK DAILY, BLOATING/GI UPSET POSSIBLE) -START DOCUSATE/SENNA (FOR CONSTIPATION, TAKE AT BEDTIME, TAKE WITH PLENTY OF WATER, MAY CAUSE GI UPSET) -HOLD SYNTHROID UNTIL YOU FOLLOW UP WITH YOUR PRIMARY CARE IN 4 WEEKS -STOP DICYCLOMINE AND LORATADINE. -CHANGE DIAZEPAM FROM TWICE DAILY TO TWICE DAILY NEEDED. BRIANA VERBALIZED NO QUESTIONS AT THIS TIME.
--- NOTE | 2023-02-23 12:12 | PC.NURSE ---
pt has been discahrged from the facility via private car. Took all belongigns including home medications with her. Education completed per nursing with pt and family. IV removed. o2 in use @ pt baseline.
--- NOTE | 2023-02-24 11:17 | SW/DCPLANNER ---
Addendum entered by Zoila Garcia 02/26/23 15:11: Per family request patient information has been faxed to Kayli oliveira/ [facility]. Addendum entered by Zoila Garcia 02/24/23 13:34: Home health services will begin this week per Ramesh oliveira/ [email or web address]. Original Note: Patient information/order has been faxed to [facility]. Patient was a weekend admission/discharge: I spoke with patient's this AM on the phone and they prefer to use [facility].
--- NOTE | 2023-02-25 15:18 | CARE MANAGER ---
Called and spoke with patient's regarding rcent discharge. He stated that patient is not doing well, has not been eating and drinking. He was unsure of when HH was scheduled to start. I called and spoke with Rachael Mcadams who stated that patient is scheduled to be seen today. Per my request, director social service will be added to patient's services.
== END 2023-02-23 12:16 | disposition home health service (06) ==
LOC: ER 15:30 → 2ND 16:14
PROVIDERS: Nurse Practitioner Critical Care Medicine; Admitting Provider Internal Medicine Adolescent Medicine; Emergency Provider Student in an Organized Health Care Education/Training Program; PCP Nurse Practitioner Family; Visit Provider Internal Medicine Adolescent Medicine
DX: N17.9 Acute kidney failure, unspecified (principal); E86.0 Dehydration; R62.7 Adult failure to thrive; M35.00 Sjogren syndrome, unspecified; I10 Essential (primary) hypertension; I25.118 Atherosclerotic heart disease of native coronary artery with other forms of angina pectoris; E43 Unspecified severe protein-calorie malnutrition; U07.1 COVID-19; Z68.21 Body mass index [BMI] 21.0-21.9, adult; Z79.899 Other long term (current) drug therapy
CPT/HCPCS: G0378; 36415; 71045; 74176; 80048; 80053; 81001; 82803; 83605; 83690; 83735; 84100; 84443; 85025; 87635; 87636; 93005; 97162; 99285; C9803; J0456; J0696; U0003; U0005

== ENCOUNTER 2023-06-04 10:45 | Emergency (ER) | payer MEDICARE, BC, SELFPAY ==
[2023-06-04] VITALS (13 sets, daily range): BP systolic 122–177; BP diastolic 85–100; PULSE 84–91; RESP 21–24; TEMP 36.4–36.6; O2SAT 88–96; BMI 19.0
--- NOTE | 2023-06-04 10:58 | XR_ITS ---
FINAL REPORT CLINICAL HISTORY: soa, copd COMPARISON: 09/21/2022 FINDINGS: SINGLE-VIEW CHEST The heart size is normal. The mediastinum is normal. There are mild left lung base opacities, may represent atelectasis or pneumonia. There is no pneumothorax. IMPRESSION: Left lung base atelectasis versus pneumonia. Reviewed, Interpreted and Dictated by Kendall Farah III, MD Transcribed by Jackie Vera Authenticated and [facility]
--- NOTE | 2023-06-04 11:00 | HMH.EDGENADL ---
Discharge Plan Disposition Patient Disposition: Home, Self-Care Prescriptions Prescriptions: New amoxicillin-pot clavulanate 875-125 mg tablet 1 tab PO BID 10 Days Qty: 20 0RF azithromycin 500 mg tablet 500 mg PO DAILY 2 Days Qty: 2 0RF Rx Instructions: start on day 2 of therapy No Action levothyroxine 25 mcg tablet 25 mcg PO DAILY Hold Instructions: pending repeat TSH in 4 weeks paroxetine HCl [Paxil] 40 mg tablet 40 mg PO DAILY Qty: 30 3RF atorvastatin 40 MG tablet 40 mg PO HS venlafaxine 225 tablet extended release 24hr 225 mg PO DAILY montelukast [Singulair] 10 mg Tablet 10 mg PO HS bisoprolol fumarate 5 mg tablet 2.5 mg PO DAILY albuterol sulfate 90 mcg/actuation Hfa Aerosol Inhaler 2 puff INHALATION Q6HP PRN (Reason: Shortness Of Breath) Anoro Ellipta 62.5-25 mcg/actuation blister with device 1 inh INHALATION DAILY sennosides-docusate sodium [Stool Softener-Stimulant Laxat] 8.6-50 mg Tablet 2 tab PO HS 30 Days Qty: 60 0RF Umeclidinium-Vilanterol [Anoro Ellipta] 1 inh inhalation DAILY Qty: 0 0RF polyethylene glycol 3350 [Miralax] 17 gram Powder In Packet 17 g PO DAILY 3030 Days Qty: 30 0RF diazepam 5 MG tablet 5 mg PO BID PRN (Reason: Anxiety) 30 Days Qty: 0 0RF albuterol sulfate 2.5 MG/NEB solution for nebulization 2.5 mg IH Q4HP PRN (Reason: Shortness Of Breath) mirtazapine 45 mg tablet 45 mg PO HS diltiazem HCl 120 mg capsule,extended release 24hr 120 mg PO DAILY Referrals Follow up/Referrals: Provider,Referral, MD [Referring] - See instructions Activity Restrictions/Add. Instructions Additional Instructions/Restrictions: Azithromycin once daily for the next 2 days. Augmentin twice daily for the next 10 days. Call your family doctor to establish care for this visit to the emergency department and schedule follow-up within 48 hours to ensure improvement. If you have any worsening of your condition or any other concerning signs or symptoms, return to the emergency department or your primary care doctor for further evaluation. Clinical Impressions Clinical Impression: COPD with acute exacerbation Pneumonia Qualifiers: Pneumonia type: due to unspecified organism Laterality: left Lung location: lower lobe of lung Qualified Code(s): J18.9 - Pneumonia, unspecified organism Discharge ED Provider: João Lyon General Adult HPI General Chief complaint: Shortness of Breath/Dyspnea Stated complaint: weakness Time Seen by Provider: 06/04/23 10:45 History of Present Illness HPI narrative: HistoryIs a 78-year-old female COPD not currently smoking, CAD, hypertension, hyperlipidemia wearing 2 L nasal cannula at home, Sjogren syndrome presenting with shortness of breath. Patient states that she has been feeling progressively short of breath for the past couple days. Got acutely worse this morning. Exertional, not positional. Not associate with chest pain, nausea or vomiting, fevers or chills, diaphoresis. She has been coughing a little more than usual, but cough is nonproductive. No urinary symptoms Related Data Home Medications Medication Instructions Recorded Confirmed atorvastatin 40 mg tablet 40 mg PO HS Cholesterol 11/17/17 02/22/23 venlafaxine 225 mg tablet,extended 225 mg PO DAILY Depression 12/14/18 02/22/23 release 24 hr albuterol sulfate 2.5 mg/3 mL 2.5 mg inhalation Q4HP PRN 06/16/20 02/22/23 (0.083 %) solution for nebulization Shortness Of Breath levothyroxine 25 mcg tablet 25 mcg PO DAILY hypothyroidism 02/04/22 02/22/23 diltiazem HCl 120 mg 120 mg PO DAILY heart rate 07/25/22 02/22/23 capsule,extended release 24 hr mirtazapine 45 mg tablet 45 mg PO HS sleep 07/25/22 02/22/23 albuterol sulfate 90 mcg/actuation 2 puff inhalation Q6HP PRN 02/22/23 02/22/23 aerosol inhaler Shortness Of Breath bisoprolol fumarate 5 mg tablet 2.5 mg PO DAILY High blood pressure 02/22/23
--- NOTE | 2023-06-04 11:12 | ECG_ITS ---
APPROVED REPORT Exam: Resting ECG HR:87 bpm ECG Measurements Heart Rate 87 AXES TX 124 P 31 QRSd 88 QRS -56 QT 362 T 48 QTc 407 Conclusion SINUS RHYTHM LEFT AXIS DEVIATION [QRS AXIS < -30] PATTERN CONSISTENT WITH PULMONARY DISEASE with atrial abnormality MINIMAL ST DEPRESSION [0.025+ mV ST DEPRESSION] ABNORMAL ECG UNCONFIRMED REPORT Electronically signed by : Ari Alcantara MD 06/06/2023 16:08:08
--- NOTE | 2023-06-04 11:20 | PC.NURSE ---
blood sent to lab at this time
[2023-06-04 11:42] LABS: VBG HCO3 33.4 mmol/L (23-30); VBG Oxygen Saturation 89.7 % (50-70); VBG PH 7.42 mmol/L (7.31-7.41); VBG PO2 52.3 mmol/L (28-40)
[2023-06-04 11:47] LABS: VBG PCO2 52.6 mmol/L (35-51)
[2023-06-04 11:48] LABS: Basophils # 0.2 K/mm3 (0-0.2); Basophils % 1.4 % (0.1-2.0); Eosinophils # 0.7 K/mm3 (0.0-0.4); Eosinophils % 5.7 % (0.1-12.0); Hematocrit 44.8 % (37.0-47.0); Hemoglobin 13.9 g/dL (12.2-16.2); Lymphocytes # 2.6 K/mm3 (0.7-4.5); Lymphocytes % 22.6 % (10-50); Mean Corpuscular Hemoglobin 25.6 pg (27.0-31.2); Mean Corpuscular Volume 82.4 fl (81-99); Mean Platelet Volume 8.2 fl (7.4-10.4); Monocytes # 0.6 K/mm3 (0.1-1.0); Monocytes % 5.4 % (1.7-9.3); Neutrophils # 7.4 K/mm3 (1.8-7.8); Neutrophils % 64.9 % (37.0-80.0); Platelet Count 386 K/mm3 (142-424); Red Blood Count 5.44 M/mm3 (4.20-5.40); Red Cell Distribution Width 14.8 % (11.5-17.5); White Blood Count 11.4 K/mm3 (4.8-10.8)
[2023-06-04 11:50] LABS: Anion Gap 14.3 mEq/L (5-15); Blood Urea Nitrogen 31 mg/dl (7-17); Calcium 9.8 mg/dl (8.4-10.2); Carbon Dioxide 35 mmol/L (22.0-30.0); Chloride 96 mmol/L (98-107); Creatinine Clearance Estimated 31 mL/min (50-200); Estimated Glomerular Filt Rate 44 ml/min (>60); GFR (African American) 53 ML/MIN (>60); Glucose 93 mg/dl (74-100); Potassium 4.3 mmoL/L (3.5-5.1); Sodium 141 mmol/L (136-145)
--- NOTE | 2023-06-04 12:00 | PC.NURSE ---
rounded on patient no new complaints. call light at bedside.
[2023-06-04 12:03] LABS: Troponin I 0.02 ng/ml (0.00-0.034)
--- NOTE | 2023-06-04 13:15 | PC.NURSE ---
rounded on pt, pt given mouth swabs with cold water to help with mouth soreness per pts request. Pt family has questions about POC, stated to them I would notify ER MD Lyon. Dr. Lyon notified and states he will speak with pt and family.
--- NOTE | 2023-06-04 14:36 | PC.NURSE ---
lunch tray ordered
[2023-06-04 15:12] LABS: Troponin I 0.02 ng/ml (0.00-0.034)
== END 2023-06-04 15:57 | disposition home or self-care (01) ==
PROVIDERS: Emergency Medicine; Emergency Provider Emergency Medicine; PCP Nurse Practitioner Family
DX: J44.1 Chronic obstructive pulmonary disease with (acute) exacerbation (principal); J18.9 Pneumonia, unspecified organism; I25.10 Atherosclerotic heart disease of native coronary artery without angina pectoris; I10 Essential (primary) hypertension; E78.5 Hyperlipidemia, unspecified; M35.00 Sjogren syndrome, unspecified; F41.1 Generalized anxiety disorder; F32.A Depression, unspecified; Z87.891 Personal history of nicotine dependence
CPT/HCPCS: 71045; 80048; 82803; 84484; 85025; 93005; 96365; 99285; J0696

== ENCOUNTER 2023-10-08 18:06 | Emergency (ER) | payer MEDICARE, BC, SELFPAY ==
[2023-10-08] VITALS (8 sets, daily range): BP systolic 138–173; BP diastolic 66–89; PULSE 69–85; RESP 16–30; TEMP 36.6; O2SAT 84–96; BMI 18.3
--- NOTE | 2023-10-08 18:23 | XR_ITS ---
PROCEDURE INFORMATION: Exam: XR Chest Exam date and time: 10/08/2023 6:31 PM Age: 78 years old Clinical indication: Shortness of breath; Additional info: SOA TECHNIQUE: Imaging protocol: Radiologic exam of the chest. Views: 1 view. Total images: 1 COMPARISON: CR XR CHEST PORTABLE 06/04/2023 11:12 AM FINDINGS: Lungs: Lungs appear emphysematous with flattening of the hemidiaphragms. Chronic bibasilar predominant interstitial coarsening resembling fibrosis. No confluent airspace consolidation or vascular congestion. Scattered calcified pulmonary granuloma. Pleural spaces: Unremarkable. No pleural effusion. No pneumothorax. Heart/Mediastinum: Prominent epicardial fat deposition. Normal heart size. No mediastinal widening. Vasculature: Atherosclerotic aortic arch. Bones/joints: Osteopenia. Partially visualized mild degenerative changes thoracic spine. Other findings: Rotation to the left. IMPRESSION: 1. No radiographically acute cardiopulmonary process. 2. Emphysema/COPD. 3. Bibasilar interstitial fibrosis.
--- NOTE | 2023-10-08 18:25 | ECG_ITS ---
APPROVED REPORT Exam: Resting ECG HR:78 bpm ECG Measurements Heart Rate 78 AXES QRSd 141 QRS -69 QT 408 T 96 QTc 441 Conclusion UNCERTAIN REGULAR RHYTHM LEFT AXIS DEVIATION [QRS AXIS < -30] INTRAVENTRICULAR CONDUCTION DELAY [130+ ms QRS DURATION] INFERIOR MYOCARDIAL INFARCTION , PROBABLY OLD [40+ ms Q WAVE AND/OR ST/T ABNORMALITY IN II/aVF] ABNORMAL ECG UNCONFIRMED REPORT Electronically signed by : Ari Alcantara MD 10/09/2023 21:25:54
[2023-10-08 18:35] LABS: Basophils # 0.1 K/mm3 (0-0.2); Basophils % 1.1 % (0.1-2.0); Eosinophils % 8.5 % (0.1-12.0); Hematocrit 39.4 % (37.0-47.0); Hemoglobin 12.7 g/dL (12.2-16.2); Lymphocytes # 3.2 K/mm3 (0.7-4.5); Mean Corpuscular HGB Conc 32.1 g/dL (31.8-35.4); Mean Corpuscular Hemoglobin 27.3 pg (27.0-31.2); Mean Corpuscular Volume 84.8 fl (81-99); Mean Platelet Volume 8.4 fl (7.4-10.4); Monocytes # 0.5 K/mm3 (0.1-1.0); Monocytes % 4.2 % (1.7-9.3); Neutrophils # 7.1 K/mm3 (1.8-7.8); Neutrophils % 59.1 % (37.0-80.0); Platelet Count 319 K/mm3 (142-424); Red Blood Count 4.65 M/mm3 (4.20-5.40); Red Cell Distribution Width 15.3 % (11.5-17.5)
[2023-10-08 18:37] LABS: Chloride 104 mmol/L (98-107); Sodium 142 mmol/L (136-145)
[2023-10-08 18:39] LABS: Alanine Aminotransferase 26 U/L (12-78); Alkaline Phosphatase 66 U/L (38-126); Aspartate Amino Transferase 32 U/L (14-36); Bilirubin,Total 0.5 mg/dl (0.2-1.3); Blood Urea Nitrogen 38 mg/dl (7-17); Creatinine Clearance Estimated 20 mL/min (50-200); Estimated Glomerular Filt Rate 29 ml/min (>60); GFR (African American) 35 ML/MIN (>60)
[2023-10-08 18:40] LABS: Albumin Level 3.7 g/dl (3.5-5.0); Albumin/Globulin Ratio 1.4 (1.1-1.8); Anion Gap 10.9 mEq/L (5-15); Calcium 8.1 mg/dl (8.4-10.2); Carbon Dioxide 30 mmol/L (22.0-30.0); Globulin 2.7 g/dL (1.3-3.2); Glucose 159 mg/dl (74-100); Total Protein,Serum 6.4 g/dl (6.3-8.2)
[2023-10-08] MEDS: METHYLPREDNISOLONE SOD SUCC 125MG VIAL 125 MG IV (18:41)
[2023-10-08] MEDS: IPRATROPIUM/ALBUTEROL 3 ML NEB IH (18:42)
--- NOTE | 2023-10-08 18:43 | PC.NURSE ---
LAB HER FOR BLOOD DRAW
[2023-10-08 18:44] LABS: Potassium 2.9 mmoL/L (3.5-5.1)
--- NOTE | 2023-10-08 18:44 | PC.NURSE ---
reported critical lab K 2.9 to
[2023-10-08 18:52] LABS: Troponin I 0.02 ng/ml (0.00-0.034)
[2023-10-08 18:54] LABS: Coronavirus 19, PCR Not Detected (NotDetected); Influenza A, PCR Not Detected (NotDetected); Influenza B, PCR Not Detected (NotDetected)
--- NOTE | 2023-10-08 19:26 | ED_ITS ---
Discharge Plan Disposition Patient Disposition: Home, Self-Care Prescriptions Prescriptions: New amoxicillin-pot clavulanate 875-125 mg tablet 1 tab PO BID 5 Days Qty: 10 0RF potassium chloride 20 mEq tablet,ER particles/crystals 20 meq PO DAILY Qty: 30 1RF No Action levothyroxine 25 mcg tablet 25 mcg PO DAILY Hold Instructions: pending repeat TSH in 4 weeks paroxetine HCl [Paxil] 40 mg tablet 40 mg PO DAILY Qty: 30 3RF bisoprolol fumarate 5 mg tablet See Rx Instructions .ROUTE .COMPLEX Qty: 30 4RF Dose Instruction: TAKE 1/2 TABLET BY MOUTH ONCE DAILY Rx Instructions: TAKE 1/2 TABLET BY MOUTH ONCE DAILY atorvastatin 40 MG tablet 40 mg PO HS venlafaxine 225 tablet extended release 24hr 225 mg PO DAILY montelukast [Singulair] 10 mg Tablet 10 mg PO HS albuterol sulfate 90 mcg/actuation Hfa Aerosol Inhaler 2 puff INHALATION Q6HP PRN (Reason: Shortness Of Breath) Anoro Ellipta 62.5-25 mcg/actuation blister with device 1 inh INHALATION DAILY sennosides-docusate sodium [Stool Softener-Stimulant Laxat] 8.6-50 mg Tablet 2 tab PO HS 30 Days Qty: 60 0RF Umeclidinium-Vilanterol [Anoro Ellipta] 1 inh inhalation DAILY Qty: 0 0RF polyethylene glycol 3350 [Miralax] 17 gram Powder In Packet 17 g PO DAILY 3030 Days Qty: 30 0RF diazepam 5 MG tablet 5 mg PO BID PRN (Reason: Anxiety) 30 Days Qty: 0 0RF amoxicillin-pot clavulanate 875-125 mg tablet 1 tab PO BID 10 Days Qty: 20 0RF azithromycin 500 mg tablet 500 mg PO DAILY 2 Days Qty: 2 0RF Rx Instructions: start on day 2 of therapy albuterol sulfate 2.5 MG/NEB solution for nebulization 2.5 mg IH Q4HP PRN (Reason: Shortness Of Breath) mirtazapine 45 mg tablet 45 mg PO HS diltiazem HCl 120 mg capsule,extended release 24hr 120 mg PO DAILY Referrals Follow up/Referrals: Brandi Durán APRN [Primary Care Provider] - See instructions Activity Restrictions/Add. Instructions Additional Instructions/Restrictions: Call your family doctor to establish care for this visit to the emergency dep artment and schedule follow-up within 48 hours to ensure improvement. If you have any worsening of your condition or any other concerning signs or symptoms, return to the emergency department or your primary care doctor for further evaluation. Augmentin twice daily for 5 days Clinical Impressions Clinical Impression: Acute exacerbation of chronic obstructive pulmonary disease, Acute hypokalemia Discharge ED Provider: João Lyon HPI General Chief Complaint: Shortness of Breath/Dyspnea Stated Complaint: soa Time Seen by Provider: 10/08/23 18:24 Mode of Arrival: Wheelchair Source of Information: Patient Limitations: No Limitations Description of Symptoms (Recalled from ER Triage Doc. by RN): Pt c/o SOA for 2-3 weeks that has gotten worse today. Pt is SOA on assesment, speaking in short sentences, audible wheezing, and mouth breathing. Pt is on 2LNC at night only at baseline. She also reports unintentional weight over several months as well. Bilateral expiratory wheezes on assesment.Pt placed on 2LNC at this time. History of Present Illness HPI narrative: 71-year-old female with history of COPD on 2 L nasal cannula at home presenting with worsening shortness of breath. Is been getting worse for a few days and today got even worse. She has been coughing up yellow/green sputum and is usually clear. She has been coughing way more than usual and coughing up more sputum than usual. No fevers or chills, nausea or vomiting, or any other symptoms. Has not needed to increase home oxygen. Related Data Home Medications Medication Instructions Recorded Confirmed atorvastatin 40 mg tablet 40 mg PO HS Cholesterol 11/17/17 02/22/23 venlafaxine 225 mg tablet,extended 225 mg PO DAILY Depression 12/14/18 02/22/23 release 24 hr albuterol sulfate 2.5 mg/3 mL 2.5 mg inhalation Q4HP PRN 06/16/20 02/22/23 (0.083 %) solution for nebulization Shortness Of Breath levothyroxine 25 mcg tablet 25 mcg PO DAILY hypothyroidism 02/04/22 02/22/23 diltiazem HCl 120 mg 120 mg PO DAILY heart rate 07/25/22 02/22/23 capsule,extended release 24 hr mirtazapine 45 mg tablet 45 mg PO HS sleep 07/25/22 02/22/23 albuterol sulfate 90 mcg/actuation 2 puff inhalation Q6HP PRN 02/22/23 02/22/23 aerosol inhaler Shortness Of Breath montelukast 10 mg tablet 10 mg PO HS Allergy symptoms 02/22/23 02/22/23 (Singulair) umeclidinium 62.5 mcg-vilanterol 1 inh inhalation DAILY COPD 02/22/23 02/22/23 25 mcg/actuation powdr for inhalation (Anoro Ellipta) Previous Rx's Medication Instructions Recorded diazepam 5 mg tablet 5 mg PO BID PRN Anxiety 30 days #0 02/23/23 tabs polyethylene glycol 3350 17 gram 17 g PO DAILY 3030 days #30 ea 02/23/23 oral powder packet (Miralax) sennosides 8.6 mg-docusate sodium 2 tab PO HS 30 days #60 tabs 02/23/23 50 mg tablet (Stool Softener-Stimulant Laxative) umeclidinium-vilanterol [Anoro 1 inh inhalation DAILY ##0 02/23/23 Ellipta] paroxetine HCl 40 mg tablet (Paxil) 40 mg PO DAILY Depression #30 tabs 04/18/23 amoxicillin 875 mg-potassium 1 tab PO BID 10 days #20 tabs 06/04/23 clavulanate 125 mg tablet azithromycin 500 mg tablet 500 mg PO DAILY 2 days #2 tabs 06/04/23 bisoprolol fumarate 5 mg tablet See Rx Instructions .Route 07/15/23 .COMPLEX #30 tabs amoxicillin 875 mg-potassium 1 tab PO BID 5 days #10 tabs 10/08/23 clavulanate 125 mg tablet potassium chloride 20 mEq 20 meq PO DAILY #30 tabs 10/08/23 tablet,extended release(part/cryst) Allergies Allergy/AdvReac Type Severity Reaction Status Date / Time butorphanol [From STADOL] Allergy Mild Verified 02/21/23 16:35 naproxen [NAPROXEN] Allergy Mild Verified 02/21/23 16:35 Penicillins [PENICILLINS] Allergy Mild Verified 02/21/23 16:35 [facility] Disclaimer: The information contained in this section may have been updated after the patient was seen, as this information can be updated by other users. Medical History Anxiety Chest pain COPD (chronic obstructive pulmonary disease) Depression Dyspnea on exertion Generalized anxiety disorder Hypothyroid Nocturnal hypoxemia Pulmonary emphysema Stopped smoking with greater than 30 pack year history Surgical History History of cardiac cath History of hemorrhoidectomy S/P appy Family History Cancer Social History Smoking Status: Former smoker tobacco type: cigarettes packs per day: 2 second hand exposure: Yes (her still smokes) alcohol intake: never substance use type: denies use counseling given: No current occupational status: other details: she was a housewife; 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 Travel in the last 8 weeks: None adopted: No caregiver/support person: No foster care: No household members: spouse housing: house lives independently: Yes marital status: number of children: 2 number of grandchildren: 3 education level: other details: she dropped out in the 10th grade current occupational exposures/hazards: No Hx Recent Travel: No sexually active: No caffeine: Yes physical activity: none working smoke detector in home: Yes fire extinguisher in home: Yes carbon monox detector in home: No firearms in home: No do you feel safe at home: Yes victim of physical abuse: No victim of emotional abuse: No victim of sexual abuse: No would you like helpful sources: No ROS Obtained: Yes All systems reviewed & no additional complaints except as documented Physical Exam General General appearance: alert ENT ENT exam: Present mucous membranes dry and other (2 L nasal cannula in place) Neck Neck exam: Present trachea midline Chest Chest inspection: Present normal inspection and symmetric chest wall rise Respiratory Respiratory exam: Present wheezes (Wheezes bilateral lung strickland, right greater than left anteriorly); Absent normal lung sounds bilaterally, respiratory distress, stridor, accessory muscle use or prolonged expiratory phase Cardiovascular Cardiovascular exam: Present regular rate and normal rhythm Extremities Exam Extremities exam: Absent edema Neurological Exam Neurological exam: Present alert, oriented X3 and CN II-XII intact Skin Skin exam: Present warm and dry; Absent cyanosis, diaphoresis or pallor HEART Score HEART Score HEART Score assessment performed?: Yes History (anamnesis): Slightly suspicious ECG: Non-specific disturbance Age: >65 years Risk factors: 3 or more risk factors Troponin: </= normal limit HEART Score: 5 Critical Care Critical Care Time Critical Care Time: No Medical Decision Making Medical Records Medical records reviewed: Yes I reviewed the patient's medical records. Skip Inquiry Pt receiving controlled substance: No Skip was queried for this patient: No Vital Signs Vital Signs: 10/08/23 18:06 10/08/23 18:20 10/08/23 19:01 Pulse Rate 76 Pulse Rate [Apical] 85 Respiratory Rate 30 H Blood Pressure 146/78 H Blood Pressure [Right Arm] 138/66 Blood Pressure Mean [Right Arm] 90 Blood Pressure Source [Right Arm] Automatic Cuff Blood Pressure Position [Right Arm] Sitting 02 Sat by Pulse Oximetry 93 L 84 L 94 L Oxygen Delivery Method Nasal Cannula Room Air Nasal Cannula Oxygen Flow Rate (LPM) 2 2 10/08/23 19:30 10/08/23 20:00 10/08/23 20:30 Pulse Rate 70 73 69 Pulse Rate [Apical] Respiratory Rate Blood Pressure 146/78 H Blood Pressure [Right Arm] Blood Pressure Mean [Right Arm] Blood Pressure Source [Right Arm] Blood Pressure Position [Right Arm] 02 Sat by Pulse Oximetry 94 L 93 L 94 L Oxygen Delivery Method Nasal Cannula Nasal Cannula Nasal Cannula Oxygen Flow Rate (LPM) 2 2 2 10/08/23 21:00 Pulse Rate 76 Pulse Rate [Apical] Respiratory Rate Blood Pressure Blood Pressure [Right Arm] Blood Pressure Mean [Right Arm] Blood Pressure Source [Right Arm] Blood Pressure Position [Right Arm] 02 Sat by Pulse Oximetry 95 Oxygen Delivery Method Nasal Cannula Oxygen Flow Rate (LPM) 2 Lab Data Labs: Lab Results 10/08/23 18:13: WBC 12.0 H, RBC 4.65, Hgb 12.7, Hct 39.4, MCV 84.8, MCH 27.3, MCHC 32.1, RDW 15.3, Plt Count 319, MPV 8.4, Neut % (Auto) 59.1, Lymph % (Auto) 27.0, Story % (Auto) 4.2, Eos % (Auto) 8.5, Baso % (Auto) 1.1, Neut # (Auto) 7.1, Lymph # (Auto) 3.2, Story # (Auto) 0.5, Eos # (Auto) 1.0 H, Baso # (Auto) 0.1, Sodium 142, Potassium 2.9 L*, Chloride 104, Carbon Dioxide 30, Anion Gap 10.9, BUN 38 H, Creatinine 1.70 H, Estimated Creat Clear 20, Estimated GFR 29 L, Est GFR ( Amer) 35 L, Glucose 159 H, Calcium 8.1 L, Total Bilirubin 0.5, AST 32, ALT 26, Alkaline Phosphatase 66, Troponin I 0.02, Total Protein 6.4, Albumin 3.7, Globulin 2.7, Albumin/Globulin Ratio 1.4 10/08/23 18:45: SARS-CoV-2 (PCR) Not detected, Influenza A Untype (PCR) Not detected, Influenza Type B (PCR) Not detected 10/08/23 20:10: VBG pH 7.34, VBG pCO2 46.5, VBG pO2 46.5 H, VBG HCO3 24.6, VBG Total CO2 26.1, VBG O2 Saturation 75.7 H, VBG Base Excess -1.1 10/08/23 20:50: Troponin I 0.02 10/08/23 18:13 10/08/23 18:13 Response Orders (Tests/Meds): ED MEDICATIONS Discontinued Medications Generic Name Dose Route Start Last Admin Trade Name Freq PRN Reason Stop Dose Admin Albuterol/Ipratropium 3 ml 10/08/23 18:23 10/08/23 18:42 Ipratropium/Albuterol 3 Ml Neb IH 10/08/23 18:24 3 ml ONCE ONE Administration Amoxicillin/Clavulanate Potassium 1 each 10/08/23 19:59 10/08/23 20:11 Amoxicillin/Clavulanate Potassium 875/125mg Tablet PO 10/08/23 20:00 1 each ONCE ONE Administration Potassium Chloride/Water 100 mls @ 100 mls/hr 10/08/23 19:02 10/08/23 21:17 Potassium Chloride 10meq/100ml Ivpb IV 10/08/23 21:01 100 mls/hr Q1H NIKOLAS Administration Magnesium Sulfate 2 gm in 50 mls @ 50 mls/hr 10/08/23 19:02 10/08/23 19:49 Magnesium Sulfate 2gm/50ml Premix IV 10/08/23 20:01 50 mls/hr ONCE ONE Administration Methylprednisolone Sodium Succinate 125 mg 10/08/23 18:24 10/08/23 18:41 Methylprednisolone Sod Succ 125mg Vial IV 10/08/23 18:25 125 mg ONCE ONE Administration Potassium Chloride 60 meq 10/08/23 19:02 10/08/23 19:48 Potassium Chloride 20meq Tab PO 10/08/23 19:03 60 meq ONCE ONE Administration ORDERS Category Date Time Status XR chest portable Stat Exams 10/08/23 18:23 Completed Complete Blood Count Auto Diff Stat Lab 10/08/23 18:13 Completed Comprehensive Metabolic Panel Stat Lab 10/08/23 18:13 Completed Rapid PCR Covid and Flu A/B Stat Lab 10/08/23 18:45 Completed Troponin I Q3H Lab 10/08/23 20:50 Completed Troponin I Q3H Lab 10/09/23 00:30 Ordered Troponin I Stat Lab 10/08/23 18:13 Completed VBG [Venous Blood Gas] Stat RT 10/08/23 20:10 Completed MDM Narrative Medical Decision Narrative: 71-year-old female with history of COPD on 2 L nasal cannula at home presenting with worsening shortness of breath. Is been getting worse for a few days and today got even worse. She has been coughing up yellow/green sputum and is usually clear. She has been coughing way more than usual and coughing up more sputum than usual. No fevers or chills, nausea or vomiting, or any other symptoms. Has not needed to increase home oxygen. History was obtained via conversation with patient and family. On arrival, patient hemodynamically stable, alert, oriented x4, appropriate, GCS 15, moving all extremities spontaneously, pupils equal and reactive to light. Full physical exam performed and significant for chronically ill-appearing woman in no acute distress. Mildly tachypneic, nontachycardic.. Afebrile. 2 L nasal cannula saturating appropriately. No lower extremity edema, lungs with bilateral wheezes, right greater than left anteriorly. Nonacute cardiac exam Differential includes COPD exacerbation, ACS, FL, pneumothorax, PE, dissection, pneumothorax, aortic aneurysm, pneumonia, bronchitis, among others. Patient was given DuoNebs, Solu-Medrol,for symptomatic management and correction of underlying abnormalities. Workup independently interpreted and significant for leukocytosis 12. Is hypokalemic with potassium 2.9. Kidney function stable with creatinine 1.7. Initial troponin negative. See radiology read for full review of final results. Independent interpretation of EKG shows sinus rhythm 78 beats a minute with right bundle branch block. No ST or T wave changes concerning for acute ischemia. Sgarbossa negative. Prolonged QRS of 141 ms, QT interval 441. MO interval within normal limits visibly. Heart score 5. patient was placed in observation beginning at 6:15 PM in order to rule out delta troponins and evolving FL and determine need for admission versus home-going. The patient was provided DuoNebs, potassium IV and p.o. while awaiting results. Independent interpretation of results demonstrated negative delta troponin, hypokalemia, this was repleted. On reevaluation, feeling much better. Given Augmentin first dose for COPD exacerbation. At this time, I feel patient is appropriate for discharge. Total observation time 3 hours. Given patient presentation, workup, history, this most likely represents COPD exacerbation and acute hypokalemia. Because patient at baseline without signs or symptoms of clinical decompensation, deemed appropriate for discharge. Results were relayed to patient who voiced understanding and were agreeable to outpatient management and follow up. At the time of discharge the patient was hemodynamically stable, tolerating PO, and mobilizing appropriately.
[2023-10-08] MEDS: POTASSIUM CHLORIDE 20MEQ TAB 60 MEQ PO (19:48)
[2023-10-08] MEDS: KCl 10mEq/100ml 100 ML 100 MEQ IV ×2 (19:49→21:17)
[2023-10-08] MEDS: MAGNESIUM SULFATE IN WATER 2 GM/50 ML PIGGYBACK IV (19:49)
--- NOTE | 2023-10-08 20:00 | PC.NURSE ---
in room talking with patient at this time.
--- NOTE | 2023-10-08 20:04 | PC.NURSE ---
notified house of possible admission at this time.
[2023-10-08] MEDS: AMOXICILLIN/CLAVULANATE POTASSIUM 875/125MG TABLET 1 EACH PO (20:11)
[2023-10-08 20:21] LABS: VBG Base Excess -1.1 mmol/L (-2.4-2.3); VBG HCO3 24.6 mmol/L (23-30); VBG Oxygen Saturation 75.7 % (50-70); VBG PCO2 46.5 mmol/L (35-51); VBG PH 7.34 mmol/L (7.31-7.41); VBG PO2 46.5 mmol/L (28-40); VBG Total CO2 26.1 mmol/L (23-27)
[2023-10-08 21:19] LABS: Troponin I 0.02 ng/ml (0.00-0.034)
== END 2023-10-08 22:11 | disposition home or self-care (01) ==
PROVIDERS: Emergency Provider Emergency Medicine; PCP Nurse Practitioner Family
DX: J44.1 Chronic obstructive pulmonary disease with (acute) exacerbation (principal); E87.6 Hypokalemia; R06.02 Shortness of breath; E03.9 Hypothyroidism, unspecified; Z87.891 Personal history of nicotine dependence; R00.0 Tachycardia, unspecified; I45.19 Other right bundle-branch block
CPT/HCPCS: 71045; 80053; 82803; 84484; 85025; 87636; 93005; 96361; 96365; 96366; 96375; 99285; J3475

== ENCOUNTER 2023-11-30 10:42 | Emergency (ER) | payer MEDICARE, BC, SELFPAY ==
[2023-11-30 11:06] VITALS: BMI 18.3
--- NOTE | 2023-11-30 11:08 | PC.NURSE ---
Code note @ 1019- Anish Wheeler EMT-P notified ER that pt is code 500, CPR in progress beginning @ 1005 @ pt's residence & attempting to intubate. @ 1022- Notified Dr. Covarrubias, supervisor word processing, Respiratory, and Radiology on impending Code arrival. @ 1033- Radio report from Abraham Wheeler EMT-P intubation unsuccessful and attempting LMA, 3x EPI administered IVP, continues to be in asystole & pulse-less. @ 1036- EMS arrived in ambulance bay @ 1038- Pt in ER Trauma room 3. CPR continues, LMA in place & 100% O2 via ambu-bag, Asystole on monitor, PIV 18g RAC. @ 1038- FS completed low . @ 1040- Bicarb administered via PIV RAC @ 1041- Pulse check: Asystole on monitor, pulses-less at femoral and radial sites, Dr. Covarrubias completed Cardiac U/S and reports no cardiac activity . @ 1042- Dr. Covarrubias asks to terminate code & called TOD.
--- NOTE | 2023-11-30 11:09 | HMH.EDGENADL ---
Discharge Plan Disposition Patient Disposition: Prescriptions Prescriptions: No Action levothyroxine 25 mcg tablet 25 mcg PO DAILY Hold Instructions: pending repeat TSH in 4 weeks paroxetine HCl [Paxil] 40 mg tablet 40 mg PO DAILY Qty: 30 3RF bisoprolol fumarate 5 mg tablet See Rx Instructions .ROUTE .COMPLEX Qty: 30 4RF Dose Instruction: TAKE 1/2 TABLET BY MOUTH ONCE DAILY Rx Instructions: TAKE 1/2 TABLET BY MOUTH ONCE DAILY atorvastatin 40 MG tablet 40 mg PO HS venlafaxine 225 tablet extended release 24hr 225 mg PO DAILY montelukast [Singulair] 10 mg Tablet 10 mg PO HS albuterol sulfate 90 mcg/actuation Hfa Aerosol Inhaler 2 puff INHALATION Q6HP PRN (Reason: Shortness Of Breath) Anoro Ellipta 62.5-25 mcg/actuation blister with device 1 inh INHALATION DAILY sennosides-docusate sodium [Stool Softener-Stimulant Laxat] 8.6-50 mg Tablet 2 tab PO HS 30 Days Qty: 60 0RF Umeclidinium-Vilanterol [Anoro Ellipta] 1 inh inhalation DAILY Qty: 0 0RF polyethylene glycol 3350 [Miralax] 17 gram Powder In Packet 17 g PO DAILY 3030 Days Qty: 30 0RF diazepam 5 MG tablet 5 mg PO BID PRN (Reason: Anxiety) 30 Days Qty: 0 0RF amoxicillin-pot clavulanate 875-125 mg tablet 1 tab PO BID 10 Days Qty: 20 0RF azithromycin 500 mg tablet 500 mg PO DAILY 2 Days Qty: 2 0RF Rx Instructions: start on day 2 of therapy albuterol sulfate 2.5 MG/NEB solution for nebulization 2.5 mg IH Q4HP PRN (Reason: Shortness Of Breath) mirtazapine 45 mg tablet 45 mg PO HS diltiazem HCl 120 mg capsule,extended release 24hr 120 mg PO DAILY amoxicillin-pot clavulanate 875-125 mg tablet 1 tab PO BID 5 Days Qty: 10 0RF potassium chloride 20 mEq tablet,ER particles/crystals 20 meq PO DAILY Qty: 30 1RF prednisone 20 mg tablet 40 mg PO DAILY 5 Days Qty: 10 0RF Referrals Follow up/Referrals: Provider,Referral, MD [Primary Care Provider] - See instructions Clinical Impressions Clinical Impression: Cardiac arrest Discharge ED Provider: Murray Covarrubias General Adult HPI General Stated complaint: arrest Time Seen by Provider: 11/30/23 10:42 History of Present Illness HPI narrative: Patient is a 78-year-old female with largely unknown past medical history, history of COPD who presents emergency department after being found down. History is obtained solely by EMS. Patient's last known well was approximately 4 AM. Just prior to 10 AM this morning she was found down into the hallway of her home, not breathing, not interacting with her environment. Upon EMS arrival patient's initial rhythm was asystole. Patient underwent ACLS beginning at approximately 10:05 AM, IV access was obtained and supraglottic airway was placed prior to arrival. Code dose epinephrine x 3 prior to arrival, persistent asystole throughout resuscitation prehospital. No other history is able to be obtained at this time. Related Data Home Medications Medication Instructions Recorded Confirmed atorvastatin 40 mg tablet 40 mg PO HS Cholesterol 11/17/17 02/22/23 venlafaxine 225 mg tablet,extended 225 mg PO DAILY Depression 12/14/18 02/22/23 release 24 hr albuterol sulfate 2.5 mg/3 mL 2.5 mg inhalation Q4HP PRN 06/16/20 02/22/23 (0.083 %) solution for nebulization Shortness Of Breath levothyroxine 25 mcg tablet 25 mcg PO DAILY hypothyroidism 02/04/22 02/22/23 diltiazem HCl 120 mg 120 mg PO DAILY heart rate 07/25/22 02/22/23 capsule,extended release 24 hr mirtazapine 45 mg tablet 45 mg PO HS sleep 07/25/22 02/22/23 albuterol sulfate 90 mcg/actuation 2 puff inhalation Q6HP PRN 02/22/23 02/22/23 aerosol inhaler Shortness Of Breath montelukast 10 mg tablet 10 mg PO HS Allergy symptoms 02/22/23 02/22/23 (Singulair) umeclidinium 62.5 mcg-vilanterol 1 inh inhalation DAILY COPD 02/22/23 02/22/23 25 mcg/actuation powdr for inhalation (Anoro Ellipta) Previous Rx's Medication Instructions Recorded diazepam 5 mg tablet 5 mg PO BID PRN Anxiety 30 days #0 02/23/23 tabs polyethylene glycol 3350 17 gram 17 g PO DAILY 3030 days #30 ea 02/23/23 oral powder packet (Miralax) sennosides 8.6 mg-docusate sodium 2 tab PO HS 30 days #60 tabs 02/23/23 50 mg tablet (Stool Softener-Stimulant Laxative) umeclidinium-vilanterol [Anoro 1 inh inhalation DAILY ##0 02/23/23 Ellipta] paroxetine HCl 40 mg tablet (Paxil) 40 mg PO DAILY Depression #30 tabs 04/18/23 amoxicillin 875 mg-potassium 1 tab PO BID 10 days #20 tabs 06/04/23 clavulanate 125 mg tablet azithromycin 500 mg tablet 500 mg PO DAILY 2 days #2 tabs 06/04/23 bisoprolol fumarate 5 mg tablet See Rx Instructions .Route 07/15/23 .COMPLEX #30 tabs amoxicillin 875 mg-potassium 1 tab PO BID 5 days #10 tabs 10/08/23 clavulanate 125 mg tablet potassium chloride 20 mEq 20 meq PO DAILY #30 tabs 10/08/23 tablet,extended release(part/cryst) prednisone 20 mg tablet 40 mg (2 x 20 mg) PO DAILY 5 days 10/08/23 #10 tabs Allergies Allergy/AdvReac Type Severity Reaction Status Date / Time butorphanol [From STADOL] Allergy Mild Verified 02/21/23 16:35 naproxen [NAPROXEN] Allergy Mild Verified 02/21/23 16:35 Penicillins [PENICILLINS] Allergy Mild Verified 02/21/23 16:35 PFSH PFSH Disclaimer: The information contained in this section may have been updated after the patient was seen, as this information can be updated by other users. Medical History Anxiety Chest pain COPD (chronic obstructive pulmonary disease) Depression Dyspnea on exertion Generalized anxiety disorder Hypothyroid Nocturnal hypoxemia Pulmonary emphysema Stopped smoking with greater than 30 pack year history Surgical History History of cardiac cath History of hemorrhoidectomy S/P appy Family History Cancer Social History Smoking Status: Former smoker tobacco type: cigarettes packs per day: 2 second hand exposure: Yes (her still smokes) alcohol intake: never substance use type: denies use counseling given: No current occupational status: other details: she was a housewife; 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 Travel in the last 8 weeks: None adopted: No caregiver/support person: No foster care: No household members: spouse housing: house lives independently: Yes marital status: number of children: 2 number of grandchildren: 3 education level: other details: she dropped out in the 10th grade current occupational exposures/hazards: No Hx Recent Travel: No sexually active: No caffeine: Yes physical activity: none working smoke detector in home: Yes fire extinguisher in home: Yes carbon monox detector in home: No firearms in home: No do you feel safe at home: Yes victim of physical abuse: No victim of emotional abuse: No victim of sexual abuse: No would you like helpful sources: No ROS Obtained: Yes other (Unable to be obtained) Physical Exam General General appearance: other (Unresponsive) Respiratory Respiratory exam: Present other (No spontaneous respiration) Cardiovascular Cardiovascular exam: Present other (No palpable pulses) Neurological Exam Neurological exam: Present other (GCS 3) Medical Decision Making Skip Inquiry Pt receiving controlled substance: No Medical Decision Narrative: In summary patient is a 78-year-old female with past medical history described above who presents emergency department after being found down at home. Patient's initial rhythm upon EMS arrival was asystole, last known well 4 AM with possible significant downtime prior to ACLS being performed given that patient was discovered at approximately 10 AM. ACLS has been conducted appropriately for 30 minutes prior to arrival, supraglottic airway in place bagging well upon arrival. IV access obtained prior to arrival, patient was transferred to hospital bed and placed on the ZOLL, patient underwent additional round of ACLS with additional medications of bicarb and calcium chloride administered. Rhythm check was persistent asystole. [id number] ultrasound was performed at bedside which shows no myocardial activity. Given prolonged downtime and prolonged ACLS further efforts were deemed to be futile and resuscitation was discontinued. Unfortunately patient , time of 10:42 AM. Critical Care Critical Care Time Critical Care Time: Yes Attestation: On 11/30/23, the high probability of a clinically significant, sudden or life threatening deterioration of the following system(s) required my full and direct attention, intervention and personal management. The time I documented below is in addition to time spent performing reported procedures but includes the following listed in this critical care notation. Total Time Total Critical Care Time: 7
--- NOTE | 2023-11-30 11:19 | EXP.DEATH.NO ---
Pronouncement Note Date and Time of Date of : 11/30/23 Time of : 10:42 PCOD Preliminary cause of : Cardiac arrest Summary Additional details: Patient found down at home, suspected prolonged downtime. Multiple rounds of ACLS with persistent asystole. Additional Data Confirmation of : no pulse Family: at bedside Attending/PCP notified?: Yes Attending physician: Murray Covarrubias Was code activated?: Yes Autopsy should be considered if:: Unknown or unanticipated medical complications Cause is not known with certainty on clinical grounds Would allay concerns of the public/family regarding Unexplained/unexpected apparently natural and not subject to a forensic medical jurisdiction DOA Within 24 hours of admission Sustained or apparently sustained injury while in the hospital Result of high risk, infectious and contagious disease Obstetric and pediatric arising from environmental or occupational hazard Unexplained/unexpected from dental, medical, or surgical diagnostic procedures and/or therapies Would disclose a known or suspected illness which also may have a bearing on survivors or recipients of transplanted organs Autopsy requested?: No Does not meet criteria securities compliance examiner notified?: Yes Organ bank notified?: Yes Advance directives: No
--- NOTE | 2023-11-30 11:23 | PC.NURSE ---
MOHAN CALLED AT THIS TIME, SPOKE WITH DIDI, STATES HE WILL NEED TO SPEAK WITH [facility] AND CALL BACK. DO NOT RELEASE BODY AT THIS TIME. WILL CALL BACK
--- NOTE | 2023-11-30 11:40 | PC.NURSE ---
FOLLOW-UP CALL FROM MOHAN, BODY FREE TO RELEASE [phone]
--- NOTE | 2023-11-30 11:43 | PC.NURSE ---
FAMILY CONSULTANT NOTIFIED AT THIS TIME
[2023-11-30 13:20] VITALS: BP 0/0; PULSE 0; RESP 0; TEMP -17.7; TEMP 0; O2SAT 0
== END 2023-11-30 13:21 | disposition expired ==
PROVIDERS: Emergency Provider Emergency Medicine
DX: I46.9 Cardiac arrest, cause unspecified (principal); J44.9 Chronic obstructive pulmonary disease, unspecified; E03.9 Hypothyroidism, unspecified; Z87.891 Personal history of nicotine dependence
CPT/HCPCS: 92950; 99285